=== PATIENT | female | born 1985 | race American Indian/Alaskan Native ===

== ENCOUNTER 2016-10-15 09:30 | Emergency (ER) | payer MEDICAID ==
[2016-10-15 10:36] LABS: Basophils % (Auto) 0.6 % (0.0-1.8); Eosinophils % (Auto) 0.1 % (0.0-4.3); Hematocrit 39.2 % (30.3-42.9); Hemoglobin 12.6 gm/dl (10.1-14.3); Mean Corpuscular HGB Conc 32 % (30-34); Mean Corpuscular Hemoglobin 29 pg (28-32); Mean Corpuscular Volume 90 fl (79-97); Platelet Count 348 K/mm3 (140-440); Red Blood Count 4.38 M/mm3 (3.65-5.03); Red Cell Distribution Width 15.9 % (13.2-15.2)
[2016-10-15 10:39] LABS: BUN/Creatinine Ratio 15.71; Blood Urea Nitrogen 11 mg/dL (7-17); Carbon Dioxide 22 mmol/L (22-30); Glucose 138 mg/dL (65-100); Lipase 11 units/L (13-60)
[2016-10-15 10:40] LABS: Anion Gap 20 mmol/L; Chloride 102.6 mmol/L (98-107); Potassium 3.5 mmol/L (3.6-5.0); Sodium 141 mmol/L (137-145)
[2016-10-15 13:47] LABS: Bilirubin,Urine NEG (Negative); Blood,Urine LG (Negative); Ketones,Urine TR mg/dL (Negative); Leukocyte Esterase,Urine SM (Negative); Mucus,Urine 1+ /HPF; Nitrite,Urine NEG (Negative); Urobilinogen,Urine < 2.0 mg/dL (<2.0)
[2016-10-15 13:57] LABS: RBC,Urine > 182.0 /HPF (0.0-6.0)
[2016-10-15] MEDS ORDERED: NACL 0.9% 1000 ML 1,000 ML ONE (16:10)
[2016-10-15] MEDS ORDERED: ZOFRAN ONE (16:10)
[2016-10-15] MEDS ORDERED: NACL 0.9% 1000 ML 1,000 ML IV ONE ×2 (16:22→20:13)
[2016-10-15] MEDS ORDERED: ZOFRAN IV ONE ×2 (16:22→20:13)
[2016-10-15] MEDS ORDERED: REGLAN IV ONE (20:13)
[2016-10-15] MEDS ORDERED: MORPHINE IV ONE (20:16)
--- NOTE | 2016-10-15 20:17 | Emergency Department Report ---
HPI - General Chief Complaint: Nausea/Vomiting/Diarrhea Time Seen by Provider: 10/15/16 20:01 - HPI HPI: Room 26 The patient is a 31-year-old female presenting with a chief complaint of nausea and vomiting. The patient states last night at approximately 20:00 she hamburger that was prepared by another family member. The patient states that hamburger tasted "funny" but she continued to use it. Patient states she went to sleep and awakened 2 hours later to eat hotdogs. Patient states at approximately 03:00 this morning she developed with intractable nausea vomiting small amount of diarrhea. Patient admits to subjective fever. Other people in the home 8 the burgers in the hotdogs but did not have nausea or vomiting. Patient states she currently still feels nauseated despite being administered Zofran 4 mg earlier. The patient states she is currently on her cycle Location: Gastrointestinal system Duration: Constant since 03:00 Quality: Soreness Severity: Moderate Modifying factors: [see above] Context: [see above] Mode of transportation: [not driving] ED Past Medical Hx - Past Medical History Additional medical history: Fibroids - Surgical History Past Surgical History?: No - Family History Family history: no significant - Social History Smoking Status: Current Every Day Smoker (3 packs per day) Substance Use Type: Alcohol (occasional), Marijuana - Medications Home Medications: Home Medications Medication Instructions Recorded Confirmed Last Taken Type Ibuprofen [Motrin 200 MG tab] 200 mg PO PRN 10/15/16 10/15/16 10/15/16 History Promethazine [Phenergan TAB] 25 mg PO Q6HR PRN #20 tab 10/15/16 Unknown Rx Promethazine [Phenergan] 25 mg PA Q6HR PRN #5 supp.rect 10/15/16 Unknown Rx traMADol [Ultram] 50 mg PO Q6HR PRN #14 tablet 10/15/16 Unknown Rx ED Review of Systems ROS: Stated complaint: EMESIS Other details as noted in HPI Comment: All other systems reviewed and negative Constitutional: fever (subjective) Eyes: denies: eye pain, eye discharge, vision change ENT: denies: ear pain, throat pain Respiratory: denies: cough, shortness of breath, wheezing Cardiovascular: denies: chest pain, palpitations Endocrine: no symptoms reported Gastrointestinal: nausea, vomiting, diarrhea Genitourinary: denies: urgency, dysuria, discharge Musculoskeletal: myalgia. denies: back pain, joint swelling, arthralgia Skin: denies: rash, lesions Neurological: denies: headache, weakness, paresthesias Psychiatric: denies: anxiety, depression Hematological/Lymphatic: denies: easy bleeding, easy bruising Physical Exam - Physical Exam Vital Signs: Vital Signs 10/15/16 10/15/16 10/15/16 09:49 16:10 18:19 Temperature 98.0 F 98 F Pulse Rate 67 55 L Respiratory 20 20 Rate Blood Pressure 171/100 160/106 Blood Pressure [Right] O2 Sat by Pulse 100 98 99 Oximetry 10/15/16 10/15/16 10/15/16 18:20 18:29 18:31 Temperature 98.5 F Pulse Rate 86 Respiratory 16 18 Rate Blood Pressure Blood Pressure 160/81 [Right] O2 Sat by Pulse 98 100 100 Oximetry Physical Exam: GENERAL: The patient is well-developed well-nourished female lying on stretcher not appearing to be in acute distress. [] HEENT: Normocephalic. Atraumatic. Extraocular motions are intact. NECK: Supple. Trachea midline CHEST/LUNGS: Clear to auscultation. There is no respiratory distress noted. HEART/CARDIOVASCULAR: Regular. There is no tachycardia. There is no gallop rub or murmur. ABDOMEN: Abdomen is soft, without rebound or guarding. Patient has normal bowel sounds. There is no abdominal distention. SKIN: There is no rash. There is no edema. There is no diaphoresis. NEURO: The patient is awake, alert, and oriented. The patient is cooperative. The patient has normal speech MUSCULOSKELETAL: There is no evidence of acute injury. ED Course Vital Signs 10/15/16 10/15/16 10/15/16 09:49 16:10 18:19 Temperature 98.0 F 98 F Pulse Rate 67 55 L Respiratory 20 20 Rate Blood Pressure 171/100 160/106 Blood Pressure [Right] O2 Sat by Pulse 100 98 99 Oximetry 10/15/16 10/15/16 10/15/16 18:20 18:29 18:31 Temperature 98.5 F Pulse Rate 86 Respiratory 16 18 Rate Blood Pressure Blood Pressure 160/81 [Right] O2 Sat by Pulse 98 100 100 Oximetry - Reevaluation(s) Reevaluation #1: 10/15/16 21:40 Patient tolerating po ED Medical Decision Making - Lab Data Result diagrams: 10/15/16 10:05 10/15/16 10:05 Laboratory Tests 10/15/16 10/15/16 10/15/16 09:53 10:05 10:05 WBC 7.0 RBC 4.38 Hgb 12.6 Hct 39.2 MCV 90 MCH 29 MCHC 32 RDW 15.9 H Plt Count 348 Lymph % (Auto) 12.5 L [place] % (Auto) 2.1 Eos % (Auto) 0.1 Baso % (Auto) 0.6 Lymph # 0.9 L [place] # 0.2 Eos # 0.0 Baso # 0.0 Seg Neutrophils % 84.7 H Seg Neutrophils # 6.0 Sodium 141 Potassium 3.5 L Chloride 102.6 Carbon Dioxide 22 Anion Gap 20 BUN 11 Creatinine 0.7 Estimated GFR > 60 BUN/Creatinine Ratio 15.71 Glucose 138 H POC Glucose 137 H Calcium 9.0 Lipase 11 L Urine Color Urine Turbidity Urine pH Ur Specific [place] Urine Protein Urine Glucose (UA) Urine Ketones Urine Blood Urine Nitrite Urine Bilirubin Urine Urobilinogen Ur Leukocyte Esterase Urine WBC (Auto) Urine RBC (Auto) U Epithel Cells (Auto) Urine Mucus Urine HCG, Qual 10/15/16 13:01 WBC RBC Hgb Hct MCV MCH MCHC RDW Plt Count Lymph % (Auto) [place] % (Auto) Eos % (Auto) Baso % (Auto) Lymph # [place] # Eos # Baso # Seg Neutrophils % Seg Neutrophils # Sodium Potassium Chloride Carbon Dioxide Anion Gap BUN Creatinine Estimated GFR BUN/Creatinine Ratio Glucose POC Glucose Calcium Lipase Urine Color Yellow Urine Turbidity Clear Urine pH 7.0 Ur Specific [place] 1.024 Urine Protein 30 mg/dl Urine Glucose (UA) Neg Urine Ketones Tr Urine Blood Lg Urine Nitrite Neg Urine Bilirubin Neg Urine Urobilinogen < 2.0 Ur Leukocyte Esterase Sm Urine WBC (Auto) 5.0 Urine RBC (Auto) > 182.0 U Epithel Cells (Auto) 2.0 Urine Mucus 1+ Urine HCG, Qual Negative - Differential Diagnosis gastroenteritis, Critical care attestation.: If time is entered above; I have spent that time in minutes in the direct care of this critically ill patient, excluding procedure time. ED Disposition Clinical Impression: Nausea vomiting and diarrhea Disposition: DISCHARGED TO HOME OR SELFCARE Is pt being admited?: No Does the pt Need Aspirin: No Condition: Stable Instructions: Acute Nausea and Vomiting (ED) Additional Instructions: Return to the emergency department immediately should you develop worsening symptoms, fever, inability to tolerate food or liquid or any other concerns. 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 Please follow up with him for further evaluation) Time of Disposition: 21:41
[2016-10-15 22:04] VITALS: BP 116/82
== END 2016-10-15 22:04 | disposition home or self-care (01) ==
LOC: ED 09:30
DX: R11.2 Nausea with vomiting, unspecified (principal); R19.7 Diarrhea, unspecified; F17.200 Nicotine dependence, unspecified, uncomplicated; F12.10 Cannabis abuse, uncomplicated
CPT/HCPCS: 36415; 80048; 81001; 81025; 82962; 83690; 85025; 96361; 96374; 96375; 96376; 99284; J2270; J2405; J2765; J7030

== ENCOUNTER 2017-12-17 | Emergency (ER) | payer MEDICAID ==
[2017-12-17] MEDS ORDERED: NACL 0.9% 1000 ML 1,000 ML IV ONE (00:48)
[2017-12-17 02:28] LABS: Alanine Aminotransferase 7 units/L (7-56); Albumin 4.5 g/dL (3.9-5); BUN/Creatinine Ratio 10; Blood Urea Nitrogen 8 mg/dL (7-17); Calcium 9.1 mg/dL (8.4-10.2); Hemolysis Index 5; Lipase 13 units/L (13-60)
[2017-12-17 02:39] LABS: Basophils # (Auto) 0.1 K/mm3 (0.0-0.1); Eosinophils # (Auto) 0.3 K/mm3 (0.0-0.4); Eosinophils % (Auto) 4.9 % (0.0-4.3); Hematocrit 37.8 % (30.3-42.9); Hemoglobin 12.7 gm/dl (10.1-14.3); Lymphocytes # (Auto) 1.9 K/mm3 (1.2-5.4); Lymphocytes % (Auto) 34.9 % (13.4-35.0); Mean Corpuscular HGB Conc 34 % (30-34); Mean Corpuscular Hemoglobin 30 pg (28-32); Mean Corpuscular Volume 90 fl (79-97); Monocytes # (Auto) 0.4 K/mm3 (0.0-0.8); Monocytes % (Auto) 8.1 % (0.0-7.3); Platelet Count 360 K/mm3 (140-440)
[2017-12-17 08:57] VITALS: BP 157/101
--- NOTE | 2017-12-17 11:23 | Emergency Department Report ---
ED Eye Problem HPI - General Chief complaint: Abdominal Pain Stated complaint: RT EYE PAIN WITH SWELLING Time Seen by Provider: 12/17/17 11:07 Source: patient Mode of arrival: Ambulatory Limitations: No Limitations - History of Present Illness Initial comments: ms William is a 32 year-old woman with hx of HTn not on meds and uterine fibroids who presents with foreign body sensation in R eye. Was at work and thinks she got something in her eye early friday morning. Went to sleep and woke up with her eye running and crusted. is red, feels like there is a foreign body in her lower lid. Also with her baseline lower abdominal pain from fibroids. LMP 7/. no vaginal discharge, no other bleeding. No pain with urination. No fever. No changes in her vision. No pain with eye movement. No other complaints. MD chief complaint: eye pain, eye redness, foreign body - Related Data Home Medications Medication Instructions Recorded Confirmed Last Taken Ibuprofen [Motrin 200 MG tab] 200 mg PO PRN 10/15/16 10/15/16 10/15/16 Previous Rx's Medication Instructions Recorded Last Taken Type Promethazine [Phenergan TAB] 25 mg PO Q6HR PRN #20 tab 10/15/16 Unknown Rx Promethazine [Phenergan] 25 mg CA Q6HR PRN #5 supp.rect 10/15/16 Unknown Rx traMADol [Ultram] 50 mg PO Q6HR PRN #14 tablet 10/15/16 Unknown Rx Allergies Allergy/AdvReac Type Severity Reaction Status Date / Time No Known Allergies Allergy Verified 05/23/15 11:19 ED Review of Systems ROS: Stated complaint: RT EYE PAIN WITH SWELLING Other details as noted in HPI Comment: All other systems reviewed and negative ED Past Medical Hx - Past Medical History Previous Medical History?: Yes Additional medical history: Fibroids - Surgical History Past Surgical History?: No - Social History Smoking Status: Current Every Day Smoker Substance Use Type: Alcohol - Medications Home Medications: Home Medications Medication Instructions Recorded Confirmed Last Taken Type Ibuprofen [Motrin 200 MG tab] 200 mg PO PRN 10/15/16 10/15/16 10/15/16 History Promethazine [Phenergan TAB] 25 mg PO Q6HR PRN #20 tab 10/15/16 Unknown Rx Promethazine [Phenergan] 25 mg CA Q6HR PRN #5 supp.rect 10/15/16 Unknown Rx traMADol [Ultram] 50 mg PO Q6HR PRN #14 tablet 10/15/16 Unknown Rx ED Physical Exam - General Limitations: No Limitations General appearance: alert, in no apparent distress - Head Head exam: Present: atraumatic, normocephalic - Eye Eye exam: Present: PERRL, EOMI, conjunctival injection, other (R conjuntival injection. Small black fb removed from lower lid. Fluorescein without uptake. vision 20/20 in both eyes. Soft to manual tonometry. ). Absent: scleral icterus , nystagmus, periorbital swelling, periorbital tenderness - ENT ENT exam: Present: normal exam, normal orophraynx, mucous membranes moist - Neck Neck exam: Present: normal inspection. Absent: tenderness - Cardiovascular Cardiovascular Exam: Present: regular rate, normal rhythm - GI/Abdominal GI/Abdominal exam: Present: soft, tenderness, other (mild suprapubic ttp, palpable uterine fibroids. ). Absent: distended, guarding, rebound - Back Exam Back exam: Present: normal inspection. Absent: tenderness - Neurological Exam Neurological exam: Present: alert, oriented X3 - Psychiatric Psychiatric exam: Present: normal affect, normal mood - Skin Skin exam: Present: warm, dry, intact ED Course Vital Signs 12/17/17 12/17/17 00:42 08:57 Temperature 98 F 98.1 F Pulse Rate 69 57 L Respiratory 14 18 Rate Blood Pressure 142/100 157/101 O2 Sat by Pulse 99 Oximetry ED Medical Decision Making - Lab Data Result diagrams: 12/17/17 01:04 12/17/17 01:04 Lab Results 12/17/17 12/17/17 12/17/17 Range/Units 01:04 01:04 01:04 WBC 5.4 (4.5-11.0) K/mm3 RBC 4.20 (3.65-5.03) M/mm3 Hgb 12.7 (10.1-14.3) gm/dl Hct 37.8 (30.3-42.9) % MCV 90 (79-97) fl MCH 30 (28-32) pg MCHC 34 (30-34) % RDW 14.0 (13.2-15.2) % Plt Count 360 (140-440) K/mm3 Lymph % (Auto) 34.9 (13.4-35.0) % [place] % (Auto) 8.1 H (0.0-7.3) % Eos % (Auto) 4.9 H (0.0-4.3) % Baso % (Auto) 1.0 (0.0-1.8) % Lymph # 1.9 (1.2-5.4) K/mm3 [place] # 0.4 (0.0-0.8) K/mm3 Eos # 0.3 (0.0-0.4) K/mm3 Baso # 0.1 (0.0-0.1) K/mm3 Seg Neutrophils % 51.1 (40.0-70.0) % Seg Neutrophils # 2.7 (1.8-7.7) K/mm3 Sodium 139 (137-145) mmol/L Potassium 3.5 L (3.6-5.0) mmol/L Chloride 100.1 (98-107) mmol/L Carbon Dioxide 24 (22-30) mmol/L Anion Gap 18 mmol/L BUN 8 (7-17) mg/dL Creatinine 0.8 (0.7-1.2) mg/dL Estimated GFR > 60 ml/min BUN/Creatinine Ratio 10 % Glucose 89 (65-100) mg/dL Calcium 9.1 (8.4-10.2) mg/dL Total Bilirubin 0.30 (0.1-1.2) mg/dL AST 15 (5-40) units/L ALT 7 (7-56) units/L Alkaline Phosphatase 65 (35-129) units/L Total Protein 7.3 (6.3-8.2) g/dL Albumin 4.5 (3.9-5) g/dL Albumin/Globulin Ratio 1.6 % Lipase 13 (13-60) units/L HCG, Qual Negative (Negative) - Medical Decision Making Ms William is a 32 year-old woman who presents with eye pain. [place] dust fly into her eye at work friday morning. Now with pain, discharge. Exam with conjunctival injection, no corneal abrasion. Home with abx ointment for eye. triage labs drawn for her chronic abdominal pain. unremarkable. palpable uterine fibroids. at baseline her patient. recommend continued PCP follow-up. Due to discharge, pain, will treat for conjunctivitis. Hydrocodone x 1 in ed for her fibroid pain. Safe for dc to home. Critical care attestation.: If time is entered above; I have spent that time in minutes in the direct care of this critically ill patient, excluding procedure time. ED Disposition Clinical Impression: Acute conjunctivitis Qualifiers: Acute conjunctivitis type: unspecified Laterality: right Qualified Code(s): H10.31 - Unspecified acute conjunctivitis, right eye Disposition: DC-01 TO HOME OR SELFCARE Is pt being admited?: No Does the pt Need Aspirin: No Condition: Stable Instructions: Eye Foreign Body (ED) Referrals: PRIMARY CARE, [Primary Care Provider] - 3-5 Days
[2017-12-17] MEDS ORDERED: NORCO 5/325 PO ONE (11:26)
[2017-12-17] MEDS ORDERED: FUL-GLO OP ONE (11:26)
[2017-12-17] MEDS ORDERED: ERYTHROMYCIN OPHTH OINT OU NR (11:26)
== END 2017-12-17 13:21 | disposition home or self-care (01) ==
LOC: ED
DX: H10.31 Unspecified acute conjunctivitis, right eye (principal); F17.200 Nicotine dependence, unspecified, uncomplicated; D25.9 Leiomyoma of uterus, unspecified
CPT/HCPCS: 36415; 80053; 83690; 84703; 85025; 99283

== ENCOUNTER 2018-06-25 02:27 | Emergency (ER) | payer OTHER, MEDICAID ==
[2018-06-25] MEDS ORDERED: NACL 0.9% 1000 ML 1,000 ML IV ONE (02:47)
[2018-06-25] MEDS ORDERED: ZOFRAN ODT PO ONE (02:48)
[2018-06-25 03:15] LABS: Basophils # (Auto) 0.1 K/mm3 (0.0-0.1); Basophils % (Auto) 1.2 % (0.0-1.8); Eosinophils # (Auto) 0.1 K/mm3 (0.0-0.4); Eosinophils % (Auto) 0.9 % (0.0-4.3); Hematocrit 34.6 % (30.3-42.9); Hemoglobin 11.7 gm/dl (10.1-14.3); Lymphocytes # (Auto) 1.4 K/mm3 (1.2-5.4); Lymphocytes % (Auto) 16.8 % (13.4-35.0); Mean Corpuscular HGB Conc 34 % (30-34); Mean Corpuscular Volume 90 fl (79-97); Monocytes # (Auto) 0.5 K/mm3 (0.0-0.8); Monocytes % (Auto) 5.8 % (0.0-7.3); Platelet Count 296 K/mm3 (140-440); Red Blood Count 3.83 M/mm3 (3.65-5.03); Red Cell Distribution Width 13.4 % (13.2-15.2)
[2018-06-25 03:39] LABS: Alanine Aminotransferase 11 units/L (7-56); BUN/Creatinine Ratio 12; Blood Urea Nitrogen 6 mg/dL (7-17); Hemolysis Index 7
[2018-06-25] MEDS ORDERED: ZOFRAN ONE (04:00)
[2018-06-25 04:03] LABS: Bilirubin,Urine NEG (Negative); Blood,Urine NEG (Negative); Color,Urine Yellow (Yellow); Mucus,Urine FEW /HPF; Protein,Urine <15 mg/dL mg/dL (Negative); RBC,Urine < 1.0 /HPF (0.0-6.0); Urobilinogen,Urine < 2.0 mg/dL (<2.0)
[2018-06-25] MEDS ORDERED: TYLENOL ONE (04:06)
[2018-06-25] MEDS ORDERED: ZOFRAN IV ONE ×2 (04:23→06:53)
[2018-06-25] MEDS ORDERED: TYLENOL PO ONE (04:44)
[2018-06-25] MEDS ORDERED: REGLAN IV ONE (06:53)
--- NOTE | 2018-06-25 07:04 | Emergency Department Report ---
ED General Adult HPI - General Chief complaint: Abdominal Pain Stated complaint: ABDOMINAL PAIN Time Seen by Provider: 06/25/18 06:04 Source: patient Mode of arrival: Ambulatory Limitations: No Limitations - History of Present Illness Initial comments: The patient() presents to the [facility] department with a chief complaint of right sided abdominal pain with nausea vomiting started Friday. Patient states prior to have abdominal pain she had no nausea or vomiting. Patient states she is approximately 13 weeks . Patient denies any chest pain, sinus pressure, vaginal discharge or vaginal bleeding. -: Sudden Location: abdomen Radiation: non-radiation Severity scale (0 -10): 10 Quality: stabbing Consistency: constant Improves with: none Worsens with: none Associated Symptoms: denies other symptoms Treatments Prior to Arrival: none - Related Data Home Medications Medication Instructions Recorded Confirmed Last Taken Ibuprofen [Motrin 200 MG tab] 200 mg PO PRN 10/15/16 10/15/16 10/15/16 Previous Rx's Medication Instructions Recorded Last Taken Type Promethazine [Phenergan TAB] 25 mg PO Q6HR PRN #20 tab 10/15/16 Unknown Rx Promethazine [Phenergan] 25 mg ND Q6HR PRN #5 supp.rect 10/15/16 Unknown Rx traMADol [Ultram] 50 mg PO Q6HR PRN #14 tablet 10/15/16 Unknown Rx ALBUTEROL Inhaler (OR & NICU) 2 puff IH QID PRN #1 inhalation 04/11/18 Unknown Rx [ProAir HFA Inhaler] predniSONE [Deltasone] 10 mg PO .TAPER #21 tab 04/11/18 Unknown Rx traMADol [Ultram] 50 mg PO Q6HR PRN #12 tablet 04/11/18 Unknown Rx Acetaminophen/Codeine [Tylenol 1 tab PO Q6H PRN #20 tab 06/25/18 Unknown Rx /Codeine # 3 tab] Ondansetron [Zofran Odt] 4 mg PO Q6HR PRN #20 tab.rapdis 06/25/18 Unknown Rx Allergies Allergy/AdvReac Type Severity Reaction Status Date / Time No Known Allergies Allergy Verified 05/23/15 11:19 ED Review of Systems ROS: Stated complaint: ABDOMINAL PAIN Other details as noted in HPI Comment: All other systems reviewed and negative Constitutional: denies: chills, fever Eyes: denies: eye pain, eye discharge, vision change ENT: denies: ear pain, throat pain Respiratory: denies: cough, shortness of breath, wheezing Cardiovascular: denies: chest pain, palpitations Endocrine: no symptoms reported Gastrointestinal: abdominal pain. denies: nausea, diarrhea Genitourinary: denies: urgency, dysuria, discharge Musculoskeletal: denies: back pain, joint swelling, arthralgia Skin: denies: rash, lesions Neurological: denies: headache, weakness, paresthesias Psychiatric: denies: anxiety, depression Hematological/Lymphatic: denies: easy bleeding, easy bruising ED Past Medical Hx - Past Medical History Previous Medical History?: Yes Hx Hypertension: Yes Additional medical history: Fibroids - Surgical History Past Surgical History?: No - Social History Smoking Status: Never Smoker Substance Use Type: None - Medications Home Medications: Home Medications Medication Instructions Recorded Confirmed Last Taken Type Ibuprofen [Motrin 200 MG tab] 200 mg PO PRN 10/15/16 10/15/16 10/15/16 History Promethazine [Phenergan TAB] 25 mg PO Q6HR PRN #20 tab 10/15/16 Unknown Rx Promethazine [Phenergan] 25 mg ND Q6HR PRN #5 supp.rect 10/15/16 Unknown Rx traMADol [Ultram] 50 mg PO Q6HR PRN #14 tablet 10/15/16 Unknown Rx ALBUTEROL Inhaler (OR & NICU) 2 puff IH QID PRN #1 inhalation 04/11/18 Unknown Rx [ProAir HFA Inhaler] predniSONE [Deltasone] 10 mg PO .TAPER #21 tab 04/11/18 Unknown Rx traMADol [Ultram] 50 mg PO Q6HR PRN #12 tablet 04/11/18 Unknown Rx Acetaminophen/Codeine [Tylenol 1 tab PO Q6H PRN #20 tab 06/25/18 Unknown Rx /Codeine # 3 tab] Ondansetron [Zofran Odt] 4 mg PO Q6HR PRN #20 tab.rapdis 06/25/18 Unknown Rx ED Physical Exam - General Limitations: No Limitations General appearance: alert, in no apparent distress - Head Head exam: Present: atraumatic, normocephalic - Eye Eye exam: Present: normal appearance, PERRL, EOMI - ENT ENT exam: Present: mucous membranes moist - Neck Neck exam: Present: normal inspection - Respiratory Respiratory exam: Present: normal lung sounds bilaterally. Absent: respiratory distress - Cardiovascular Cardiovascular Exam: Present: regular rate, normal rhythm. Absent: systolic murmur, diastolic murmur, rubs, gallop - GI/Abdominal GI/Abdominal exam: Present: soft, tenderness (RLQ TTP), normal bowel sounds. Absent: distended - Extremities Exam Extremities exam: Present: normal inspection - Back Exam Back exam: Present: normal inspection - Neurological Exam Neurological exam: Present: alert, oriented X3, CN II-XII intact. Absent: motor sensory deficit - Psychiatric Psychiatric exam: Present: normal affect, normal mood - Skin Skin exam: Present: warm, dry, intact, normal color. Absent: rash ED Course Vital Signs 06/25/18 06/25/18 06/25/18 02:40 03:36 03:46 Temperature 99.1 F Pulse Rate 84 Respiratory 18 Rate Blood Pressure 133/86 132/115 Blood Pressure [Left] O2 Sat by Pulse 100 100 100 Oximetry 06/25/18 06/25/18 06/25/18 04:00 04:16 04:30 Temperature Pulse Rate Respiratory Rate Blood Pressure 136/79 136/79 156/82 Blood Pressure [Left] O2 Sat by Pulse 100 100 100 Oximetry 06/25/18 06/25/18 06/25/18 04:32 04:43 04:46 Temperature Pulse Rate 88 Respiratory 18 18 Rate Blood Pressure 172/80 Blood Pressure 136/79 [Left] O2 Sat by Pulse 100 100 100 Oximetry 06/25/18 06/25/18 06/25/18 05:04 05:16 05:30 Temperature Pulse Rate Respiratory Rate Blood Pressure 147/98 147/98 163/96 Blood Pressure [Left] O2 Sat by Pulse 90 100 100 Oximetry 06/25/18 06/25/18 06/25/18 05:46 06:00 06:20 Temperature Pulse Rate 84 Respiratory 18 Rate Blood Pressure 192/77 142/82 133/79 Blood Pressure 142/88 [Left] O2 Sat by Pulse 98 100 86 Oximetry 06/25/18 06/25/18 06/25/18 06:32 06:47 07:34 Temperature Pulse Rate Respiratory Rate Blood Pressure 133/79 50/30 133/79 Blood Pressure [Left] O2 Sat by Pulse 86 96 Oximetry 06/25/18 06/25/18 06/25/18 10:26 10:30 10:46 Temperature Pulse Rate Respiratory Rate Blood Pressure 134/57 134/57 134/57 Blood Pressure [Left] O2 Sat by Pulse 98 100 100 Oximetry 06/25/18 06/25/18 06/25/18 11:00 11:16 11:30 Temperature Pulse Rate Respiratory Rate Blood Pressure 134/57 134/57 134/57 Blood Pressure [Left] O2 Sat by Pulse 100 99 100 Oximetry 06/25/18 13:47 Temperature Pulse Rate Respiratory Rate Blood Pressure 117/69 Blood Pressure [Left] O2 Sat by Pulse Oximetry ED Medical Decision Making - Lab Data Result diagrams: 06/25/18 03:06 06/25/18 03:06 Lab Results 06/25/18 06/25/18 06/25/18 Range/Units 03:06 03:06 03:53 WBC 8.4 (4.5-11.0) K/mm3 RBC 3.83 (3.65-5.03) M/mm3 Hgb 11.7 (10.1-14.3) gm/dl Hct 34.6 (30.3-42.9) % MCV 90 (79-97) fl MCH 31 (28-32) pg MCHC 34 (30-34) % RDW 13.4 (13.2-15.2) % Plt Count 296 (140-440) K/mm3 Lymph % (Auto) 16.8 (13.4-35.0) % [place] % (Auto) 5.8 (0.0-7.3) % Eos % (Auto) 0.9 (0.0-4.3) % Baso % (Auto) 1.2 (0.0-1.8) % Lymph # 1.4 (1.2-5.4) K/mm3 [place] # 0.5 (0.0-0.8) K/mm3 Eos # 0.1 (0.0-0.4) K/mm3 Baso # 0.1 (0.0-0.1) K/mm3 Seg Neutrophils % 75.3 H (40.0-70.0) % Seg Neutrophils # 6.3 (1.8-7.7) K/mm3 Sodium 137 (137-145) mmol/L Potassium 4.0 (3.6-5.0) mmol/L Chloride 101.2 (98-107) mmol/L Carbon Dioxide 22 (22-30) mmol/L Anion Gap 18 mmol/L BUN 6 L (7-17) mg/dL Creatinine 0.5 L (0.7-1.2) mg/dL Estimated GFR > 60 ml/min BUN/Creatinine Ratio 12 % Glucose 75 (65-100) mg/dL Calcium 9.0 (8.4-10.2) mg/dL Total Bilirubin 0.20 (0.1-1.2) mg/dL AST 13 (5-40) units/L ALT 11 (7-56) units/L Alkaline Phosphatase 47 (35-129) units/L Total Protein 6.3 (6.3-8.2) g/dL Albumin 4.0 (3.9-5) g/dL Albumin/Globulin Ratio 1.7 % Lipase 8 L (13-60) units/L HCG, Quant (0-4) mIU/mL Urine Color Yellow (Yellow) Urine Turbidity Clear (Clear) Urine pH 7.0 (5.0-7.0) Ur Specific [place] 1.013 (1.003-1.030) Urine Protein <15 mg/dl (Negative) mg/dL Urine Glucose (UA) Neg (Negative) mg/dL Urine Ketones Negative (Negative) mg/dL Urine Blood Neg (Negative) Urine Nitrite Neg (Negative) Urine Bilirubin Neg (Negative) Urine Urobilinogen < 2.0 (<2.0) mg/dL Ur Leukocyte Esterase Neg (Negative) Urine WBC (Auto) 1.0 (0.0-6.0) /HPF Urine RBC (Auto) < 1.0 (0.0-6.0) /HPF U Epithel Cells (Auto) 1.0 (0-13.0) /HPF Urine Mucus Few /HPF 06/25/18 Range/Units 03:58 WBC (4.5-11.0) K/mm3 RBC (3.65-5.03) M/mm3 Hgb (10.1-14.3) gm/dl Hct (30.3-42.9) % MCV (79-97) fl MCH (28-32) pg MCHC (30-34) % RDW (13.2-15.2) % Plt Count (140-440) K/mm3 Lymph % (Auto) (13.4-35.0) % [place] % (Auto) (0.0-7.3) % Eos % (Auto) (0.0-4.3) % Baso % (Auto) (0.0-1.8) % Lymph # (1.2-5.4) K/mm3 [place] # (0.0-0.8) K/mm3 Eos # (0.0-0.4) K/mm3 Baso # (0.0-0.1) K/mm3 Seg Neutrophils % (40.0-70.0) % Seg Neutrophils # (1.8-7.7) K/mm3 Sodium (137-145) mmol/L Potassium (3.6-5.0) mmol/L Chloride (98-107) mmol/L Carbon Dioxide (22-30) mmol/L Anion Gap mmol/L BUN (7-17) mg/dL Creatinine (0.7-1.2) mg/dL Estimated GFR ml/min BUN/Creatinine Ratio % Glucose (65-100) mg/dL Calcium (8.4-10.2) mg/dL Total Bilirubin (0.1-1.2) mg/dL AST (5-40) units/L ALT (7-56) units/L Alkaline Phosphatase (35-129) units/L Total Protein (6.3-8.2) g/dL Albumin (3.9-5) g/dL Albumin/Globulin Ratio % Lipase (13-60) units/L HCG, Quant 40750 H (0-4) mIU/mL Urine Color (Yellow) Urine Turbidity (Clear) Urine pH (5.0-7.0) Ur Specific [place] (1.003-1.030) Urine Protein (Negative) mg/dL Urine Glucose (UA) (Negative) mg/dL Urine Ketones (Negative) mg/dL Urine Blood (Negative) Urine Nitrite (Negative) Urine Bilirubin (Negative) Urine Urobilinogen (<2.0) mg/dL Ur Leukocyte Esterase (Negative) Urine WBC (Auto) (0.0-6.0) /HPF Urine RBC (Auto) (0.0-6.0) /HPF U Epithel Cells (Auto) (0-13.0) /HPF Urine Mucus /HPF - Radiology Data Radiology results: report reviewed [address] [address] Ultrasound Report Signed Patient: ANAYA GAFFNEY MR#: [id number] : 1985 Acct:[id number] Age/Sex: 33 / F ADM Date: 06/25/18 Loc: ED Attending Dr: Ordering Physician: CHANDLER JIMÉNEZ MD Date of Service: 06/25/18 Procedure(s): US OB <= 14 weeks fetus Accession Number(s): [id number] cc: CHANDLER JIMÉNEZ MD ULTRASOUND OB LESS THAN 14 WEEKS FETUS History: Abdominal pain. Technique: Transabdominal ultrasound. Findings: The uterus measures 27 x 12 x 18 cm. Multiple large uterine fibroids are identified measuring up to 8.5 cm in diameter. An intrauterine is identified with heart rate measuring 157 beats per minute. [place]-rump length measures 72.8 mm which correlates with a 13 week 3 day . The placenta appears to be forming anteriorly. No subchorionic hemorrhage is detected. The ovaries are normal size, contour and echotexture. No adnexal cyst or mass. No pelvic fluid collection. IMPRESSION: Severe uterine fibroid disease. Viable single intrauterine as described. No acute abnormality is appreciated. Transcribed By: TTR Dictated By: KWADWO CINTRON JR, MD Electronically Authenticated By: KWADWO CINTRON JR, MD Signed Date/Time: 06/25/18844 DD/ 1 TD/TT: 06/25/[address] [address] Ultrasound Report Signed Patient: ANAYA GAFFNEY MR#: [id number] : 1985 Acct:[id number] Age/Sex: 33 / F ADM Date: 06/25/18 Loc: ED Attending Dr: Ordering Physician: CHANDLER JIMÉNEZ MD Date of Service: 06/25/18 Procedure(s): US abdomen limited Accession Number(s): [id number] cc: CHANDLER JIMÉNEZ MD ULTRASOUND ABDOMEN LIMITED History: Right lower quadrant abdominal pain. Findings: Targeted grayscale ultrasound was performed in the right lower quadrant. The appendix is not identified on ultrasound. The visualized liver and right kidney are unremarkable. A large fibroid is identified in the right lower quadrant measuring up to 8.5 cm in diameter. No free fluid. Impression: The appendix is not identified. There is a large uterine fibroid in the right lower quadrant as described. Transcribed By: TTR Dictated By: KWADWO CINTRON JR, MD Electronically Authenticated By: KWADWO CINTRON JR, MD Signed Date/Time: 06/25/1842 DD/ 0841 TD/TT: 06/25/1842 [facility] [address] [id number] Magnetic Resonance Report Signed Patient: ANAYA GAFFNEY MR#: [id number] : 1985 Acct:[id number] Age/Sex: 33 / F ADM Date: 06/25/18 Loc: ED Attending Dr: Ordering Physician: CHANDLER JIMÉNEZ MD Date of Service: 06/25/18 Procedure(s): MR abdomen wo con Accession Number(s): [id number] cc: CHANDLER JIMÉNEZ MD MRI ABDOMEN WITHOUT CONTRAST History: Right lower quadrant abdominal pain, evaluate for appendicitis. Technique: Multisequence, multiplanar MRI without contrast. Findings: Ultrasound of the right lower quadrant performed earlier today was reviewed. I believe I see the appendix on MRI. The appendix is best demonstrated on coronal T2 images 12-15. There is no evidence for abnormal dilatation or wall thickening. No inflammatory changes are identified in the right lower quadrant to suggest appendicitis. The uterus is markedly enlarged and contains numerous small and large fibroids. Intrauterine is noted. The ovaries are grossly normal. The right ovarian vein is markedly dilated measuring up to 1.5 cm in diameter. The liver, biliary system, pancreas, spleen, kidneys, adrenal glands and bowel loops are unremarkable. IMPRESSION: No evidence for acute appendicitis on MRI. Markedly enlarged uterus with numerous fibroids. Prominent right ovarian vein varicosity. Pelvic congestion syndrome? Transcribed By: TTR Dictated By: KWADWO CINTRON JR, MD Electronically Authenticated By: KWADWO CINTRON JR, MD Signed Date/Time: 06/25/18 1333 DD/ 1329 TD/TT: 06/25/18 1333 Critical care attestation.: If time is entered above; I have spent that time in minutes in the direct care of this critically ill patient, excluding procedure time. ED Disposition Clinical Impression: Abdominal pain, Uterine fibroid, Abdominal pain during Disposition: TO HOME OR SELFCARE Is pt being admited?: No Does the pt Need Aspirin: No Condition: Stable Instructions: Abdominal Pain (ED), Uterine Fibroids (ED) Additional Instructions: return if worse Prescriptions: Acetaminophen/Codeine [Tylenol /Codeine # 3 tab] 1 tab PO Q6H PRN #20 tab PRN Reason: pain Ondansetron [Zofran Odt] 4 mg PO Q6HR PRN #20 tab.rapdis PRN Reason: Nausea Referrals: YVES LIMA MD [Primary Care Provider] - 3-5 Days Time of Disposition: 14:53
[2018-06-25] MEDS ORDERED: STADOL IV NR ×2 (07:30→14:00)
--- NOTE | 2018-06-25 08:45 | Ultrasound Report ---
ULTRASOUND ABDOMEN LIMITED History: Right lower quadrant abdominal pain. Findings: Targeted grayscale ultrasound was performed in the right lower quadrant. The appendix is not identified on ultrasound. The visualized liver and right kidney are unremarkable. A large fibroid is identified in the right lower quadrant measuring up to 8.5 cm in diameter. No free fluid. Impression: The appendix is not identified. There is a large uterine fibroid in the right lower quadrant as described.
--- NOTE | 2018-06-25 08:48 | Ultrasound Report ---
ULTRASOUND OB LESS THAN 14 WEEKS FETUS History: Abdominal pain. Technique: Transabdominal ultrasound. Findings: The uterus measures 27 x 12 x 18 cm. Multiple large uterine fibroids are identified measuring up to 8.5 cm in diameter. An intrauterine is identified with heart rate measuring 157 beats per minute. [place]-rump length measures 72.8 mm which correlates with a 13 week 3 day . The placenta appears to be forming anteriorly. No subchorionic hemorrhage is detected. The ovaries are normal size, contour and echotexture. No adnexal cyst or mass. No pelvic fluid collection. IMPRESSION: Severe uterine fibroid disease. Viable single intrauterine as described. No acute abnormality is appreciated.
--- NOTE | 2018-06-25 13:36 | Magnetic Resonance Report ---
MRI ABDOMEN WITHOUT CONTRAST History: Right lower quadrant abdominal pain, evaluate for appendicitis. Technique: Multisequence, multiplanar MRI without contrast. Findings: Ultrasound of the right lower quadrant performed earlier today was reviewed. I believe I see the appendix on MRI. The appendix is best demonstrated on coronal T2 images 12-15. There is no evidence for abnormal dilatation or wall thickening. No inflammatory changes are identified in the right lower quadrant to suggest appendicitis. The uterus is markedly enlarged and contains numerous small and large fibroids. Intrauterine is noted. The ovaries are grossly normal. The right ovarian vein is markedly dilated measuring up to 1.5 cm in diameter. The liver, biliary system, pancreas, spleen, kidneys, adrenal glands and bowel loops are unremarkable. IMPRESSION: No evidence for acute appendicitis on MRI. Markedly enlarged uterus with numerous fibroids. Prominent right ovarian vein varicosity. Pelvic congestion syndrome?
[2018-06-25 13:59] VITALS: BP 117/69
[2018-06-25] MEDS ORDERED: STADOL IV ONE (14:00)
== END 2018-06-25 15:28 | disposition home or self-care (01) ==
LOC: ED 02:27
DX: O34.11 Maternal care for benign tumor of corpus uteri, first trimester (principal); O10.911 Unspecified pre-existing hypertension complicating pregnancy, first trimester; O21.8 Other vomiting complicating pregnancy; Z3A.13 13 weeks gestation of pregnancy
CPT/HCPCS: 36415; 74181; 76705; 76801; 80053; 81001; 83690; 84702; 85025; 96361; 96374; 96375; 96376; 99284; J0595; J2405; J2765; J7030; Q0162

== ENCOUNTER 2018-08-17 22:06 | Emergency (ER) | payer MEDICAID, OTHER ==
[2018-08-17 20:12] LABS: Bilirubin,Urine NEG (Negative); Blood,Urine NEG (Negative); Color,Urine Straw (Yellow); Protein,Urine <15 mg/dL mg/dL (Negative); Urobilinogen,Urine < 2.0 mg/dL (<2.0); WBC,Urine < 1.0 /HPF (0.0-6.0)
[2018-08-17 20:18] LABS: Amphetamine Screen,Urine PRESUMPTIVE NEGATIVE; Benzodiazepines Screen,Urine PRESUMPTIVE NEGATIVE; Cocaine Screen,Urine PRESUMPTIVE NEGATIVE; Methadone Screen,Urine PRESUMPTIVE NEGATIVE; Opiate Screen,Urine PRESUMPTIVE NEGATIVE
[2018-08-17 21:04] LABS: Cannabinoid Screen,Urine PRESUMPTIVE POSITIVE
[~2018-08-17 22:06] MED LIST: LACTATED RINGERS 1,000 ML IV SCH
[2018-08-17 22:43] VITALS: BP 124/77
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
== END 2018-08-18 03:57 | disposition home or self-care (01) ==
LOC: TRG 22:06 → ED 22:06 → EDSTATUS 22:13 → ED 08-18 03:57
DX: O9A.212 Injury, poisoning and certain other consequences of external causes complicating pregnancy, second trimester (principal); S16.1XXA Strain of muscle, fascia and tendon at neck level, initial encounter; S80.211A Abrasion, right knee, initial encounter; M79.601 Pain in right arm; O16.2 Unspecified maternal hypertension, second trimester; O99.332 Smoking (tobacco) complicating pregnancy, second trimester; F17.200 Nicotine dependence, unspecified, uncomplicated; F12.10 Cannabis abuse, uncomplicated; Z3A.21 21 weeks gestation of pregnancy; V49.59XA Passenger injured in collision with other motor vehicles in traffic accident, initial encounter; Y93.89 Activity, other specified; Y92.410 Unspecified street and highway as the place of occurrence of the external cause; Y99.8 Other external cause status
CPT/HCPCS: 80307; 81001; 96360

== ENCOUNTER 2018-08-23 12:55 | Outpatient (CLI) | payer OTHER ==
[2018-08-23] MEDS ORDERED: LACTATED RINGERS 1,000 ML IV ONE (13:06)
[2018-08-23 14:48] LABS: Color,Urine Yellow (Yellow)
[2018-08-23 14:49] LABS: Bilirubin,Urine NEG (Negative); Blood,Urine NEG (Negative); Mucus,Urine FEW /HPF; Protein,Urine <15 mg/dL mg/dL (Negative); Urobilinogen,Urine < 2.0 mg/dL (<2.0)
--- NOTE | 2018-08-23 16:56 | Ultrasound Report ---
PROCEDURE: US RENAL BILAT TECHNIQUE: Real-time sonography in multiple planes of the kidneys, ureters and urinary bladder was p erformed with image documentation. HISTORY: abdominal pain COMPARISONS: None . FINDINGS: RIGHT kidney: Normal echotexture. No focal renal mass, calculus, or hydronephrosis. Length: 11.2 cm . LEFT kidney: Normal echotexture. No focal renal mass, calculus, or hydronephrosis. Length: 11.8 cm. Bladder: Normal. No distention or wall thickening. IMPRESSION: Negative Examination . This document is electronically signed by Aries Mitchell MD., August 23 2018 04:54:20 PM ET
[2018-08-23] MEDS ORDERED: PROCARDIA*For Tocolysis only PO ONE (17:32)
[2018-08-23] MEDS ORDERED: LACTATED RINGERS 1,000 ML ONE (17:52)
[2018-08-23] MEDS ORDERED: ANCEF/NS 1 GM/50 ML 1 GM/50 ML BAG IV ONE (18:00)
[2018-08-23 18:46] VITALS: BP 107/52
[2018-08-23] MEDS ORDERED: VISTARIL PO ONE (19:52)
== END 2018-08-23 20:30 | disposition home or self-care (01) ==
LOC: TRG 12:55
PROVIDERS: ATTEND Obstetrics & Gynecology
DX: O26.892 Other specified pregnancy related conditions, second trimester (principal); R10.9 Unspecified abdominal pain; O09.522 Supervision of elderly multigravida, second trimester; O47.02 False labor before 37 completed weeks of gestation, second trimester; O99.322 Drug use complicating pregnancy, second trimester; F12.90 Cannabis use, unspecified, uncomplicated; O99.332 Smoking (tobacco) complicating pregnancy, second trimester; F17.200 Nicotine dependence, unspecified, uncomplicated; Z3A.21 21 weeks gestation of pregnancy
CPT/HCPCS: 76770; 81001; 96361; 96365; J0690; J7120; Q0177

== ENCOUNTER 2018-08-24 09:16 | Outpatient (CLI) | payer OTHER ==
[2018-08-24] MEDS ORDERED: LACTATED RINGERS 1,000 ML ONE (10:06)
[2018-08-24] MEDS ORDERED: BRETHINE SUB-Q ONE (10:44)
[2018-08-24] MEDS ORDERED: LACTATED RINGERS 1,000 ML IV ONE (10:45)
[2018-08-24 11:51] LABS: Amphetamine Screen,Urine PRESUMPTIVE NEGATIVE; Benzodiazepines Screen,Urine PRESUMPTIVE NEGATIVE; Cocaine Screen,Urine PRESUMPTIVE NEGATIVE; Methadone Screen,Urine PRESUMPTIVE NEGATIVE; Opiate Screen,Urine PRESUMPTIVE NEGATIVE
[2018-08-24 12:10] LABS: Bilirubin,Urine NEG (Negative); Blood,Urine NEG (Negative); Color,Urine Amber (Yellow); Mucus,Urine 2+ /HPF; Urobilinogen,Urine < 2.0 mg/dL (<2.0)
[2018-08-24 12:14] LABS: Cannabinoid Screen,Urine PRESUMPTIVE POSITIVE
[2018-08-24 12:38] LABS: Alanine Aminotransferase 26 units/L (7-56); Albumin 3.5 g/dL (3.9-5); BUN/Creatinine Ratio 13; Blood Urea Nitrogen 5 mg/dL (7-17); Hemolysis Index 17
[2018-08-24] MEDS ORDERED: PHENERGAN PR PRN (12:50)
[2018-08-24] MEDS ORDERED: SUBLIMAZE IV ONE (12:52)
[2018-08-24] MEDS ORDERED: PEPCID IV SCH (13:00)
[2018-08-24 13:42] LABS: Basophils % (Auto) 0.1 % (0.0-1.8); Hematocrit 32.5 % (30.3-42.9); Hemoglobin 10.7 gm/dl (10.1-14.3); Lymphocytes # (Auto) 1.3 K/mm3 (1.2-5.4); Lymphocytes % (Auto) 10.3 % (13.4-35.0); Mean Corpuscular HGB Conc 33 % (30-34); Mean Corpuscular Volume 90 fl (79-97); Monocytes # (Auto) 0.3 K/mm3 (0.0-0.8); Monocytes % (Auto) 2.1 % (0.0-7.3); Platelet Count 309 K/mm3 (140-440); Red Blood Count 3.61 M/mm3 (3.65-5.03); Red Cell Distribution Width 14.4 % (13.2-15.2)
[2018-08-24] MEDS ORDERED: ALDOMET PO SCH (14:00)
--- NOTE | 2018-08-24 14:07 | Event Note ---
Date: 08/24/18 33 y.o. IUP at approx 22w presents to triage with c/o abdominal pain, n/v x 2 days. She was seen in triage last night with same complaints. US ordered to confirm GA. Phenergan W[place], IV fentanyl, pepcid IV, and IV fluids given. SVE closed. Patient reports feeling much better, states still slightly nauseated, but phenergan was just recently given. Reports abdominal pain is better. Abdomen palpates soft, no contractions noted at present. Patient denies LOF or vaginal bleeding. Patient reports hx CHTN and was taking 250mg aldomet BID, but has mis sed taking it the last 2+ days due to vomiting and nausea. One time dose ordered to be given now. Labs reviewed. Dr. Ruelas notified of patient assessment and c/o. Will continue to monitor n/v and d/c home once improved.
[2018-08-24 14:34] LABS: Hepatitis C Virus Antibody Non-Reactive (NonReactive)
--- NOTE | 2018-08-24 17:02 | Ultrasound Report ---
PROCEDURE: US OB >= 14 WEEK LMP: 03/23/2018 S FETUS TECHNIQUE: OB ultrasound HISTORY: well being. date, weights, all information on baby COMPARISONS: None available FINDINGS: LMP 03/23/2018 Clinical Age: 22 W 0D US Age (average) = 21 W 4D EFW (BPD,HC,AC,FL) = 511 g +/- 76g (1lbs 2oz.. 3oz.) LMP EDC 12/28/2018 US EDC 12/31/2018 CI 68.4 (Range 74 To 83) HC/AC 1.11 (Range 1.06 To 1.25) FL/BPD 97.5 FL/HC 23 (Range 16.6 To 22.0) FL/AC 25.5 (Range 20 To 24) BPD 4.4 cm corresponding to age 19 weeks 2 days HC 18.7 cm corresponding to age 21 weeks 0 days AC 16.9 cm corresponding to age 21 weeks 6 days FL 4.3 cm corresponding to age 24 weeks 0 days Presentation: Breech Activity: Monitored Placental location: Anterior Placental grade: 0 Cardiac motion: 161 BPM using M-mode doppler Heart (4 CH) :Present Umbilical cord: 3 vessel Bladder: Present Kidneys: Present stomach: Present Diaphragm: Not visualized Spine: Portions that are visualized appear normal brain and skull: Portions that are visualized appear normal Cord Insertion: Not visualized Amniotic Fluid Volume: Adequate Cervical Length: 3.5 cm Incidental: 2 fibroids are noted in the uterus. The first is heterogeneous and isoechoic, located in the lower uterine segment posteriorly measuring 6.6 x 6.9 x 6.5 cm. The second is heterogeneous and i soechoic, located in the uterine fundus cranially to the right measuring 9.6 x 9.1 x 9.7 cm. IMPRESSION: 1. Single intrauterine viable with an approximate age of 21 weeks 4 days. 2. Some portions of the fetus are not well visualized 3. There are 2 large fibroids present in the uterus This document is electronically signed by Lissa Ureña MD., August 24 2018 05:00:00 PM ET
[2018-08-24 18:37] VITALS: BP 123/70
== END 2018-08-24 19:07 | disposition home or self-care (01) ==
LOC: TRG 09:16 → LD 11:07 → TRG 19:07
PROVIDERS: ATTEND Obstetrics & Gynecology
DX: O34.12 Maternal care for benign tumor of corpus uteri, second trimester (principal); D25.9 Leiomyoma of uterus, unspecified; O21.2 Late vomiting of pregnancy; Z3A.22 22 weeks gestation of pregnancy
CPT/HCPCS: 36415; 76805; 80053; 80307; 81001; 85025; 86592; 86706; 86762; 86803; 87806; 96365; 96366; 96372; 96375; J3010; J3105; J7120

== ENCOUNTER 2018-08-27 22:11 | Outpatient (CLI) | payer OTHER ==
[2018-08-27] MEDS ORDERED: LACTATED RINGERS 1,000 ML ONE (22:49)
[2018-08-27] MEDS ORDERED: ZOFRAN ONE (23:22)
[2018-08-27] MEDS ORDERED: LACTATED RINGERS 1,000 ML IV ONE (23:32)
[2018-08-27] MEDS ORDERED: ZOFRAN IV ONE (23:33)
[2018-08-28] MEDS ORDERED: STADOL IV PRN (00:07)
[2018-08-28 00:31] LABS: Amorphous Crystals,Urine 1+; Bilirubin,Urine NEG (Negative); Blood,Urine NEG (Negative); Color,Urine Yellow (Yellow); Hyaline Casts,Urine 3 /LPF; Mucus,Urine 3+ /HPF
[2018-08-28 00:37] LABS: Amphetamine Screen,Urine PRESUMPTIVE NEGATIVE; Benzodiazepines Screen,Urine PRESUMPTIVE NEGATIVE; Cocaine Screen,Urine PRESUMPTIVE NEGATIVE; Methadone Screen,Urine PRESUMPTIVE NEGATIVE; Opiate Screen,Urine PRESUMPTIVE NEGATIVE
[2018-08-28 01:00] LABS: Cannabinoid Screen,Urine PRESUMPTIVE POSITIVE
[2018-08-28 01:32] LABS: Hematocrit 28.4 % (30.3-42.9); Hemoglobin 9.9 gm/dl (10.1-14.3); Mean Corpuscular HGB Conc 35 % (30-34); Mean Corpuscular Volume 89 fl (79-97); Platelet Count 306 K/mm3 (140-440); Red Blood Count 3.18 M/mm3 (3.65-5.03); Red Cell Distribution Width 13.7 % (13.2-15.2)
[2018-08-28] MEDS ORDERED: BRETHINE ONE ×2 (01:52→10:00)
[2018-08-28] MEDS: BRETHINE SUB-Q SCH ×2 (01:52→02:17)
[2018-08-28 02:13] LABS: Alanine Aminotransferase 18 units/L (7-56); Albumin 3.1 g/dL (3.9-5); BUN/Creatinine Ratio 10; Blood Urea Nitrogen 3 mg/dL (7-17); Calcium 8.2 mg/dL (8.4-10.2); Hemolysis Index 0
[2018-08-28 03:12] VITALS: BP 135/76
== END 2018-08-28 03:22 | disposition home or self-care (01) ==
LOC: TRG 22:11
PROVIDERS: ATTEND Obstetrics & Gynecology
DX: O26.892 Other specified pregnancy related conditions, second trimester (principal); R10.9 Unspecified abdominal pain; O09.522 Supervision of elderly multigravida, second trimester; O34.12 Maternal care for benign tumor of corpus uteri, second trimester; O99.322 Drug use complicating pregnancy, second trimester; F12.90 Cannabis use, unspecified, uncomplicated; O99.332 Smoking (tobacco) complicating pregnancy, second trimester; F17.200 Nicotine dependence, unspecified, uncomplicated; O10.912 Unspecified pre-existing hypertension complicating pregnancy, second trimester; Z3A.22 22 weeks gestation of pregnancy
CPT/HCPCS: 36415; 80053; 80307; 81001; 85027; 96361; 96365; 96366; 96372; 96374; J0595; J2405; J3105; J7120; 96360

== ENCOUNTER 2018-08-31 12:37 | Outpatient (CLI) | payer OTHER ==
[2018-08-31] MEDS ORDERED: LACTATED RINGERS 1,000 ML ONE ×2 (13:28→14:31)
[2018-08-31] MEDS ORDERED: ZOFRAN IV PRN (14:17)
[2018-08-31] MEDS ORDERED: BRETHINE SUB-Q ONE (14:23)
[2018-08-31] MEDS ORDERED: BRETHINE ONE (14:30)
[2018-08-31] MEDS ORDERED: PROCARDIA*For Tocolysis only PO ONE (15:43)
[2018-08-31] MEDS ORDERED: LACTATED RINGERS 1,000 ML IV SCH (16:00)
[2018-08-31 16:35] LABS: Alanine Aminotransferase 25 units/L (7-56); Albumin 3.3 g/dL (3.9-5); BUN/Creatinine Ratio 10; Blood Urea Nitrogen 4 mg/dL (7-17); Calcium 8.6 mg/dL (8.4-10.2); Hemolysis Index 10
[2018-08-31 17:15] LABS: Bilirubin,Urine NEG (Negative); Blood,Urine NEG (Negative); Color,Urine Yellow (Yellow); Mucus,Urine FEW /HPF; Protein,Urine <15 mg/dL mg/dL (Negative); Urobilinogen,Urine < 2.0 mg/dL (<2.0); WBC,Urine < 1.0 /HPF (0.0-6.0)
[2018-08-31 17:21] LABS: Amphetamine Screen,Urine PRESUMPTIVE NEGATIVE; Benzodiazepines Screen,Urine PRESUMPTIVE NEGATIVE; Cocaine Screen,Urine PRESUMPTIVE NEGATIVE; Methadone Screen,Urine PRESUMPTIVE NEGATIVE; Opiate Screen,Urine PRESUMPTIVE NEGATIVE
[2018-08-31 17:40] LABS: Cannabinoid Screen,Urine PRESUMPTIVE POSITIVE
[2018-08-31] MEDS ORDERED: PEPCID IV ONE (18:59)
[2018-08-31 19:23] VITALS: BP 114/59
--- NOTE | 2018-08-31 21:51 | Ultrasound Report ---
PROCEDURE: Limited obstetrical ultrasound. TECHNIQUE: Real-time limited sonographic examination was performed for evaluation of each fetus with image documentation (1 or more fetuses). HISTORY: Evaluate cervical length. COMPARISONS: Obstetrical ultrasound 08/24/2018. FINDINGS: There is a single viable fetus in cephalic presentation. Cardiac activity is documented at 165 bpm. T he cervix is closed and measures 3.3 cm in length. There are 2 probable uterine leiomyomas visible lo cated posteriorly near the cervix and laterally on the right side. IMPRESSION: Cervix measures 3.3 cm in length. This document is electronically signed by Jassi Guillen MD., August 31 2018 09:49:10 PM ET
[2018-08-31] MEDS ORDERED: FLAGYL PO SCH (22:00)
== END 2018-08-31 21:20 | disposition home or self-care (01) ==
LOC: TRG 12:37
PROVIDERS: ATTEND Obstetrics & Gynecology
DX: O21.2 Late vomiting of pregnancy (principal); O99.332 Smoking (tobacco) complicating pregnancy, second trimester; F17.200 Nicotine dependence, unspecified, uncomplicated; O99.322 Drug use complicating pregnancy, second trimester; F12.90 Cannabis use, unspecified, uncomplicated; O09.522 Supervision of elderly multigravida, second trimester; Z3A.23 23 weeks gestation of pregnancy
CPT/HCPCS: 36415; 59025; 76815; 80053; 80307; 81001; 87210; 87591; 96372; 96374; 96375; J2405; J3105; J7120; 96360

== ENCOUNTER 2018-11-16 16:05 | Observation (INO) | payer OTHER ==
[2018-11-16] MEDS ORDERED: LACTATED RINGERS 1,000 ML ONE (16:44)
[2018-11-16] MEDS ORDERED: ZOFRAN IM ONE (17:05)
[2018-11-16] MEDS ORDERED: LACTATED RINGERS 1,000 ML IV ONE (17:14)
[2018-11-16] MEDS ORDERED: MAGNESIUM SULFATE 4GM/100ML 4 GM/100 ML BAG IV ONE (17:32)
[2018-11-16] MEDS ORDERED: COLACE PO PRN (17:42)
--- NOTE | 2018-11-16 18:07 | History and Physical Report ---
History of Present Illness Date of examination: 11/16/18 Date of admission: 11/16/2018 Chief complaint: nausea and vomiting, contractions History of present illness: Patient presents to triage with c/o n&v since 0700 and contractions since 0800. She reports she tried PO zofran which did not help. She states the contractions are variable in length and time apart, she rates them 4 on pain scale. Patient denies any LOF or VB. +FM. 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 denies: abnormal PAP smear, cancer, chlamydia, gonorrhea, hepatitis B, hepatitis C, HIV, syphilis, trichomonas Family/Genetic History: hypertension (mother, mgm, pgf) Social history: single, lives with family (child), smoking (current smoker), prescription drug abuse (reports marijuana use ). denies: alcohol abuse, IV drug use - Obstetrical History Expected Date of Delivery: 12/28/18 Actual Gestation: 34 Week(s) 1 Day(s) : 3 Para: 1 Hx # Term Pregnancies: 0 Number of Pregnancies: 1 Spontaneous Abortions: 1 Induced : 0 Number of Living Children: 1 Medications and Allergies Allergies Allergy/AdvReac Type Severity Reaction Status Date / Time No Known Allergies Allergy Verified 08/27/18 23:32 Home Medications Medication Instructions Recorded Confirmed Last Taken Type Methyldopa [Aldomet] 250 mg PO BID 08/28/18 08/28/18 11/10/18 10:00 History 250 Active Meds: Active Medications Acetaminophen (Tylenol) 650 mg PO Q4H PRN PRN Reason: Pain MILD(1-3)/Fever >100.5/BECKER Betamethasone Acet/Betameth SodPhos (Celestone Soluspan) 12 mg IM Q24HR TEETEE Stop: 11/17/18 10:01 Docusate Sodium (Colace) 100 mg PO Q12H PRN PRN Reason: Constipation Lactated Ringer's (Lactated Ringers) 1,000 mls @ 999 mls/hr IV BOLUS ONE Stop: 11/16/18 18:14 Last Admin: 11/16/18 17:21 Dose: 999 mls/hr Documented by: Lactated Ringer's (Lactated Ringers) 1,000 mls @ 125 mls/hr IV DIRECT TEETEE Magnesium Sulfate (Magnesium Sulfate 40gm/1000ml) 40 gm in 1,000 mls @ 50 mls/hr IV DIRECT TEETEE Multivitamins/Iron/Calcium ( Vitamin) 1 each PO QDAY TEETEE Ondansetron HCl (Zofran) 4 mg IV Q6H PRN PRN Reason: Nausea And Vomiting Review of Systems All systems: negative Gastrointestinal: nausea, vomiting Genitourinary: contractions - Vital Signs Vital signs: Vital Signs Pulse BP 82 131/70 11/16/18 16:46 11/16/18 16:46 Temp Pulse Resp BP Pulse Ox 68 131/70 100 11/16/18 17:49 11/16/18 16:46 11/16/18 17:49 - Physical Exam Breasts: Positive: normal Cardiovascular: Regular rate, Normal S1, Normal S2 Lungs: Positive: Clear to auscultation, Normal air movement Abdomen: Positive: normal appearance, soft, normal bowel sounds. Negative: distention, tenderness Genitourinary (Female): Positive: normal external genitalia, normal perenium Vulva: both: normal (no lesions noted) Vagina: Positive: normal moisture. Negative: discharge Cervix: Negative: lesion, discharge Uterus: Positive: normal size, normal contour Adnexa: both: normal Anus/Rectum: Positive: normal perianal skin, heme negative. Negative: rectal mass, hemorrhoids Extremities: Positive: normal Deep Tendon Reflex Grade: Normal +2 - Obstetrical FHR: auscultation normal, category 1 Uterine Contraction Monitor Mode: External Cervical Dilatation: 3.5 Cervical Effacement Percentage: 60 station: -3 Uterine Contraction Frequency (min): 3-7 Uterine Contraction Pattern: Regular Uterine Tone Measurement Phase: Contraction Uterine Contraction Intensity: Moderate Results Result Diagrams: 11/16/18 20:13 11/16/18 20:13 All other labs normal. Assessment and Plan 33 y.o IUP at 34w0d presents to triage with c/o n&v and contractions since this morning. She reports she has not been able to keep anything down despite PO zofran. Patient reports she received care beginning in first trimester with Dr. Eileen Pathak, but that she has not been "in a few months due to insurance". Patient reports she was started on methyldopa with this for HTN, but is unsure is she was taking medications before or if she has ever been diagnosed with CHTN outside of . Patient reports hx of one vaginal delivery at 35 weeks, reports she was induced, but is unsure for what reason. SVE on admission is 3.5/60/-3, IBOW, vertex. Category 1 tracing at this time. Contractions on TOCO q3-7, palpating mild-moderate. Consult with Dr. Ruelas, will begin magnesium for neuroprotection and BMZ for lung maturity. labs ordered in EMR. Will continue to monitor for progressing labor.
[2018-11-16 18:27] LABS: Bacteria,Urine 2+ /HPF (Negative); Bilirubin,Urine NEG (Negative); Blood,Urine SM (Negative); Color,Urine Yellow (Yellow); Hyaline Casts,Urine 1 /LPF; Mucus,Urine 3+ /HPF; Urobilinogen,Urine < 2.0 mg/dL (<2.0)
[2018-11-16 18:29] LABS: Amphetamine Screen,Urine PRESUMPTIVE NEGATIVE; Benzodiazepines Screen,Urine PRESUMPTIVE NEGATIVE; Cocaine Screen,Urine PRESUMPTIVE NEGATIVE; Methadone Screen,Urine PRESUMPTIVE NEGATIVE; Opiate Screen,Urine PRESUMPTIVE NEGATIVE
[2018-11-16] MEDS: CELESTONE SOLUSPAN IM SCH (18:36)
[2018-11-16] MEDS: MAGNESIUM SULFATE 40GM/1000ML 40 GM/1,000 ML BAG IV SCH (18:39)
[2018-11-16 18:43] LABS: Cannabinoid Screen,Urine PRESUMPTIVE POSITIVE
[2018-11-16] MEDS: TYLENOL PO PRN (20:19)
[2018-11-16] MEDS ORDERED: BICITRA PO ONE (20:23)
[2018-11-16] MEDS ORDERED: TUMS PO ONE (20:32)
[2018-11-16] MEDS ORDERED: AMPICILLIN/NS 2 GM/100 ML 2 GM/100 ML BAG IV ONE (21:38)
[2018-11-16] MEDS: LACTATED RINGERS 1,000 ML IV SCH (21:40)
[2018-11-16] MEDS: ZOFRAN IV PRN (21:40)
[2018-11-16 21:49] LABS: Hematocrit 29.5 % (30.3-42.9); Mean Corpuscular HGB Conc 34 % (30-34); Mean Corpuscular Volume 86 fl (79-97); Platelet Count 308 K/mm3 (140-440); Red Blood Count 3.41 M/mm3 (3.65-5.03); Red Cell Distribution Width 15.7 % (13.2-15.2)
[2018-11-16] MEDS ORDERED: STADOL IV PRN (21:57)
[2018-11-16 22:21] LABS: Hepatitis C Virus Antibody Non-Reactive (NonReactive)
[2018-11-16 22:29] LABS: Band Neutrophils # (Manual) 0.1 K/mm3; Basophils % (Manual) 0 % (0.0-1.8); Eosinophils % (Manual) 0 % (0.0-4.3); Total Cells Counted 100
[2018-11-16 22:31] LABS: Anisocytosis 1+; Poikilocytosis Few
[2018-11-16 22:32] LABS: Hypochromasia 1+; Ovalocytes Few; Platelet Estimate Consistent w Auto
[2018-11-16 22:33] LABS: Giant Platelets Few
--- NOTE | 2018-11-16 22:36 | Event Note ---
Date: 11/16/18 Patient reports contractions are becoming stronger. SVE is 4.5/70/-2, vtx, IBOW. TOCO tracing contractions q3-4 min, palpating moderate. Cat 1 tracing at this time. Pt reports +FM, denies LOF or VB. Pt declines pain medications at this time. Stadol one time dose ordered for pain PRN. NICU consult Gerda bee NNP at bedside with patient. Reviewed lab results, BP, and assessment with Dr. Ruelas, will start labetalol 100 mg PO BID and send [facility] labs.
--- NOTE | 2018-11-16 22:39 | Consultation ---
Consult Note - Parent Education I met with parent(s) and discussed the following:: Need for NICU admission, Poss ible need for intubation and surfactant or other resp support, Temperature regulation, Possible need for IV fluids/TPN and IV antibiotics, Possible need for umbilical lines, Importance of providing breast milk & encouraged pumping aft delivery, Donor breast milk if baby meets criteria after , Slow feeding advancement and monitoring of tolerance. NG/OG feeds, Need to monitor for jaundice, Data for survival & survival without significant co-morbidities Parent(s) demonstrated understanding of all the information:: Yes Assessment and Plan - Assessment Gestation:: 34 Baby's name: Promise - Plan Plan: Agree with Mag & steroids Will attend delivery Please call NICU with questions
[2018-11-16] MEDS: NORMODYNE PO SCH (22:52)
[2018-11-16 22:58] LABS: Alanine Aminotransferase 31 units/L (7-56)
[2018-11-16 23:10] LABS: Uric Acid 3.4 mg/dL (3.5-7.6)
[2018-11-17] MEDS: TYLENOL PO PRN (01:54)
[2018-11-17] MEDS: AMPICILLIN/NS 1 GM/50 ML 1 GM/50 ML BAG IV SCH ×6 (01:55→22:47)
--- NOTE | 2018-11-17 07:27 | Progress Note ---
Assessment and Plan Pt resting with eyes closed, c/o inability to sleep d/t headache unrelieved by Tylenol. pt states she usually takes Tylenol #3 or Tylenol PM. Will give Tylenol and Benadryl together and see if BECKER improves. VSSAF. pt reports contractions have spaced out. denies SROM. last mag level 5.4 @ 0611. second dose BMZ @ 1845 tonight. all questions addressed with pt, pt verbalizes understanding. - Patient Problems (1) labor in third trimester Current Visit: Yes Status: Acute Qualifiers: Fetus number: single or unspecified fetus Plan to address problem: Continue mag sulfate and q6hr mag levels second dose of betamethasone due 1845 tonight NICU aware - will update on any changes in status (2) Marijuana use Current Visit: Yes Status: Acute (3) 34 weeks gestation of Current Visit: Yes Status: Acute (4) Chronic hypertension Current Visit: Yes Status: Acute Plan to address problem: Currently on Labetalol 100mg PO blood pressures normotensive at this time Continue to monitor Subjective - Subjective Date of service: 11/17/18 Principal diagnosis: IUP @ 34+2, labor Patient reports: new complaints (Headache "all night"), movement normal, no loss of fluid, no vaginal bleeding, no contractions Objective - Vital Signs Vital Signs: Vital Signs - 12hr 11/16/18 11/16/18 11/16/18 19:21 19:50 19:55 Temperature Pulse Rate 63 67 Respiratory Rate Blood Pressure Blood Pressure [Right] O2 Sat by Pulse 52 L 100 100 Oximetry 11/16/18 11/16/18 11/16/18 19:58 20:00 20:10 Temperature Pulse Rate 101 H 80 77 Respiratory Rate Blood Pressure Blood Pressure [Right] O2 Sat by Pulse 88 100 100 Oximetry 11/16/18 11/16/18 11/16/18 20:15 20:19 20:20 Temperature Pulse Rate 69 81 Respiratory 18 Rate Blood Pressure Blood Pressure [Right] O2 Sat by Pulse 100 100 Oximetry 11/16/18 11/16/18 11/16/18 20:25 20:30 20:33 Temperature Pulse Rate 62 70 114 H Respiratory Rate Blood Pressure Blood Pressure [Right] O2 Sat by Pulse 100 100 76 L Oximetry 06/17/19 06/17/19 06/17/19 20:35 20:40 20:45 Temperature Pulse Rate 60 71 68 Respiratory Rate Blood Pressure Blood Pressure [Right] O2 Sat by Pulse 100 99 100 Oximetry 11/16/18 11/16/18 11/16/18 20:49 20:50 20:51 Temperature 97.2 F L Pulse Rate 67 63 62 Respiratory 19 Rate Blood Pressure 146/80 Blood Pressure 146/80 [Right] O2 Sat by Pulse 99 100 Oximetry 11/16/18 11/16/18 11/16/18 20:55 21:00 21:05 Temperature Pulse Rate 83 83 62 Respiratory Rate Blood Pressure Blood Pressure [Right] O2 Sat by Pulse 92 70 L 100 Oximetry 11/16/18 11/16/18 11/16/18 21:10 21:15 21:19 Temperature Pulse Rate 72 63 Respiratory 18 Rate Blood Pressure Blood Pressure [Right] O2 Sat by Pulse 100 100 Oximetry 11/16/18 11/16/18 11/16/18 21:20 21:25 21:30 Temperature Pulse Rate 60 77 62 Respiratory Rate Blood Pressure Blood Pressure [Right] O2 Sat by Pulse 100 100 100 Oximetry 11/16/18 11/16/18 11/16/18 21:35 21:40 21:45 Temperature Pulse Rate 74 74 88 Respiratory Rate Blood Pressure Blood Pressure [Right] O2 Sat by Pulse 100 100 99 Oximetry 11/16/18 11/16/18 11/16/18 21:50 21:51 21:56 Temperature Pulse Rate 68 92 H Respiratory Rate Blood Pressure Blood Pressure [Right] O2 Sat by Pulse 93 100 87 Oximetry 11/16/18 11/16/18 11/16/18 22:01 22:03 22:06 Temperature Pulse Rate 65 71 77 Respiratory Rate Blood Pressure Blood Pressure [Right] O2 Sat by Pulse 96 0 L 100 Oximetry 11/16/18 11/16/18 11/16/18 22:11 22:16 22:21 Temperature Pulse Rate 75 72 68 Respiratory Rate Blood Pressure Blood Pressure [Right] O2 Sat by Pulse 100 100 100 Oximetry 11/16/18 11/16/18 11/16/18 22:26 22:31 22:36 Temperature Pulse Rate 70 107 H 67 Respiratory Rate Blood Pressure Blood Pressure [Right] O2 Sat by Pulse 100 97 100 Oximetry 11/16/18 11/16/18 11/16/18 22:41 22:46 22:51 Temperature Pulse Rate 81 72 69 Respiratory Rate Blood Pressure Blood Pressure [Right] O2 Sat by Pulse 100 99 100 Oximetry 11/16/18 11/16/18 11/16/18 22:52 22:56 23:01 Temperature Pulse Rate 74 72 87 Respiratory Rate Blood Pressure 146/80 134/77 Blood Pressure [Right] O2 Sat by Pulse 100 100 Oximetry 11/16/18 11/16/18 11/16/18 23:06 23:11 23:16 Temperature Pulse Rate 96 H 74 75 Respiratory Rate Blood Pressure Blood Pressure [Right] O2 Sat by Pulse 100 100 100 Oximetry 11/16/18 11/16/18 11/16/18 23:21 23:24 23:26 Temperature Pulse Rate 93 H 85 77 Respiratory Rate Blood Pressure 147/80 Blood Pressure [Right] O2 Sat by Pulse 100 100 Oximetry 11/16/18 11/16/18 11/16/18 23:31 23:36 23:41 Temperature Pulse Rate 69 86 88 Respiratory Rate Blood Pressure Blood Pressure [Right] O2 Sat by Pulse 100 100 100 Oximetry 11/16/18 11/16/18 11/16/18 23:46 23:51 23:54 Temperature Pulse Rate 97 H 90 93 H Respiratory Rate Blood Pressure 157/94 Blood Pressure [Right] O2 Sat by Pulse 100 100 Oximetry 11/16/18 11/17/18 11/17/18 23:56 00:01 00:06 Temperature Pulse Rate 85 71 75 Respiratory Rate Blood Pressure Blood Pressure [Right] O2 Sat by Pulse 100 99 100 Oximetry 11/17/18 11/17/18 11/17/18 00:10 00:11 00:16 Temperature Pulse Rate 113 H 72 87 Respiratory Rate Blood Pressure Blood Pressure [Right] O2 Sat by Pulse 50 L 100 100 Oximetry 11/17/18 11/17/18 11/17/18 00:21 00:23 00:26 Temperature Pulse Rate 97 H 92 H 68 Respiratory Rate Blood Pressure 142/82 Blood Pressure [Right] O2 Sat by Pulse 100 100 Oximetry 11/17/18 11/17/18 11/17/18 00:29 00:31 00:36 Temperature Pulse Rate 119 H 96 H 75 Respiratory Rate Blood Pressure Blood Pressure [Right] O2 Sat by Pulse 91 100 100 Oximetry 11/17/18 11/17/18 11/17/18 00:39 00:41 00:46 Temperature Pulse Rate 109 H 81 81 Respiratory Rate Blood Pressure Blood Pressure [Right] O2 Sat by Pulse 93 100 100 Oximetry 11/17/18 11/17/18 11/17/18 00:51 00:53 00:56 Temperature Pulse Rate 85 93 H 81 Respiratory Rate Blood Pressure 107/67 Blood Pressure [Right] O2 Sat by Pulse 100 100 Oximetry 11/17/18 11/17/18 11/17/18 01:01 01:06 01:11 Temperature Pulse Rate 89 82 77 Respiratory Rate Blood Pressure Blood Pressure [Right] O2 Sat by Pulse 100 99 100 Oximetry 11/17/18 11/17/18 11/17/18 01:16 01:21 01:22 Temperature Pulse Rate 82 91 H 95 H Respiratory Rate Blood Pressure Blood Pressure [Right] O2 Sat by Pulse 100 96 92 Oximetry 11/17/18 11/17/18 11/17/18 01:23 01:26 01:29 Temperature Pulse Rate 72 60 76 Respiratory Rate Blood Pressure 137/77 Blood Pressure [Right] O2 Sat by Pulse 99 92 Oximetry 11/17/18 11/17/18 11/17/18 01:31 01:35 01:36 Temperature Pulse Rate 73 111 H 92 H Respiratory Rate Blood Pressure Blood Pressure [Right] O2 Sat by Pulse 98 82 L 100 Oximetry 11/17/18 11/17/18 11/17/18 01:41 01:46 01:50 Temperature Pulse Rate 86 86 72 Respiratory Rate Blood Pressure Blood Pressure [Right] O2 Sat by Pulse 99 99 80 L Oximetry 11/17/18 11/17/18 11/17/18 01:51 01:53 01:54 Temperature Pulse Rate 84 83 Respiratory 19 Rate Blood Pressure 104/59 Blood Pressure [Right] O2 Sat by Pulse 99 Oximetry 11/17/18 11/17/18 11/17/18 01:56 02:01 02:06 Temperature Pulse Rate 80 82 87 Respiratory Rate Blood Pressure Blood Pressure [Right] O2 Sat by Pulse 98 99 97 Oximetry 11/17/18 11/17/18 11/17/18 02:11 02:16 02:21 Temperature Pulse Rate 82 96 H 67 Respiratory Rate Blood Pressure Blood Pressure [Right] O2 Sat by Pulse 99 99 99 Oximetry 11/17/18 11/17/18 11/17/18 02:23 02:26 02:31 Temperature Pulse Rate 72 81 81 Respiratory Rate Blood Pressure 98/54 Blood Pressure [Right] O2 Sat by Pulse 99 98 Oximetry 11/17/18 11/17/18 11/17/18 02:36 02:41 02:46 Temperature Pulse Rate 74 78 71 Respiratory Rate Blood Pressure Blood Pressure [Right] O2 Sat by Pulse 98 98 99 Oximetry 11/17/18 11/17/18 11/17/18 02:51 02:53 02:54 Temperature Pulse Rate 105 H 87 Respiratory 18 Rate Blood Pressure 107/57 Blood Pressure [Right] O2 Sat by Pulse 98 Oximetry 11/17/18 11/17/18 11/17/18 02:56 03:00 03:01 Temperature Pulse Rate 86 90 78 Respiratory Rate Blood Pressure Blood Pressure [Right] O2 Sat by Pulse 97 94 99 Oximetry 11/17/18 11/17/18 11/17/18 03:06 03:11 03:16 Temperature Pulse Rate 84 99 H 68 Respiratory Rate Blood Pressure Blood Pressure [Right] O2 Sat by Pulse 98 98 99 Oximetry 11/17/18 11/17/18 11/17/18 03:21 03:23 03:26 Temperature Pulse Rate 84 103 H 80 Respiratory Rate Blood Pressure 111/63 Blood Pressure [Right] O2 Sat by Pulse 98 99 Oximetry 11/17/18 11/17/18 11/17/18 03:31 03:36 03:41 Temperature Pulse Rate 90 71 87 Respiratory Rate Blood Pressure Blood Pressure [Right] O2 Sat by Pulse 100 99 98 Oximetry 11/17/18 11/17/18 11/17/18 03:46 03:51 03:54 Temperature Pulse Rate 73 67 82 Respiratory Rate Blood Pressure 119/70 Blood Pressure [Right] O2 Sat by Pulse 100 100 Oximetry 11/17/18 11/17/18 11/17/18 03:56 04:01 04:06 Temperature Pulse Rate 93 H 84 90 Respiratory Rate Blood Pressure Blood Pressure [Right] O2 Sat by Pulse 99 100 97 Oximetry 11/17/18 11/17/18 11/17/18 04:11 04:16 04:21 Temperature Pulse Rate 67 80 80 Respiratory Rate Blood Pressure Blood Pressure [Right] O2 Sat by Pulse 98 98 98 Oximetry 11/17/18 11/17/18 11/17/18 04:23 04:26 04:31 Temperature Pulse Rate 96 H 82 92 H Respiratory Rate Blood Pressure 104/69 Blood Pressure [Right] O2 Sat by Pulse 98 100 Oximetry 11/17/18 11/17/18 11/17/18 04:36 04:41 04:46 Temperature Pulse Rate 79 76 81 Respiratory Rate Blood Pressure Blood Pressure [Right] O2 Sat by Pulse 99 98 98 Oximetry 11/17/18 11/17/18 11/17/18 04:51 04:53 04:56 Temperature Pulse Rate 85 106 H 88 Respiratory Rate Blood Pressure 110/61 Blood Pressure [Right] O2 Sat by Pulse 97 100 Oximetry 11/17/18 11/17/18 11/17/18 05:01 05:06 05:11 Temperature Pulse Rate 109 H 87 80 Respiratory Rate Blood Pressure Blood Pressure [Right] O2 Sat by Pulse 99 99 96 Oximetry 11/17/18 11/17/18 11/17/18 05:16 05:21 05:23 Temperature Pulse Rate 83 73 76 Respiratory Rate Blood Pressure 98/53 Blood Pressure [Right] O2 Sat by Pulse 99 100 Oximetry 11/17/18 11/17/18 11/17/18 05:26 05:31 05:36 Temperature Pulse Rate 96 H 84 81 Respiratory Rate Blood Pressure Blood Pressure [Right] O2 Sat by Pulse 99 99 99 Oximetry 11/17/18 11/17/18 11/17/18 05:41 05:46 05:51 Temperature Pulse Rate 70 112 H 96 H Respiratory Rate Blood Pressure Blood Pressure [Right] O2 Sat by Pulse 99 95 100 Oximetry 11/17/18 11/17/18 11/17/18 05:54 05:55 05:56 Temperature Pulse Rate 81 91 H 74 Respiratory Rate Blood Pressure 117/71 Blood Pressure [Right] O2 Sat by Pulse 91 100 Oximetry 11/17/18 11/17/18 11/17/18 06:01 06:03 06:06 Temperature Pulse Rate 84 110 H 85 Respiratory Rate Blood Pressure Blood Pressure [Right] O2 Sat by Pulse 100 92 99 Oximetry 11/17/18 11/17/18 11/17/18 06:11 06:16 06:21 Temperature Pulse Rate 104 H 82 89 Respiratory Rate Blood Pressure Blood Pressure [Right] O2 Sat by Pulse 99 100 100 Oximetry 11/17/18 11/17/18 11/17/18 06:24 06:26 06:31 Temperature Pulse Rate 68 92 H 96 H Respiratory Rate Blood Pressure 109/63 Blood Pressure [Right] O2 Sat by Pulse 98 99 Oximetry 11/17/18 11/17/18 11/17/18 06:36 06:41 06:46 Temperature Pulse Rate 84 98 H 94 H Respiratory Rate Blood Pressure Blood Pressure [Right] O2 Sat by Pulse 99 100 100 Oximetry 11/17/18 11/17/18 11/17/18 06:51 06:53 06:56 Temperature Pulse Rate 72 77 111 H Respiratory Rate Blood Pressure 114/73 Blood Pressure [Right] O2 Sat by Pulse 99 100 Oximetry 11/17/18 11/17/18 11/17/18 07:01 07:06 07:11 Temperature Pulse Rate 75 105 H 78 Respiratory Rate Blood Pressure Blood Pressure [Right] O2 Sat by Pulse 99 96 100 Oximetry 11/17/18 11/17/18 07:14 07:16 Temperature Pulse Rate 109 H 66 Respiratory Rate Blood Pressure Blood Pressure [Right] O2 Sat by Pulse 85 97 Oximetry - Exam Breasts: normal Cardiovascular: Regular rate Lungs: Clear to auscultation, Normal air movement Abdomen: Present: normal appearance, soft Vulva: both: normal Uterus: Present: normal FHR: auscultation normal Uterine Contraction Monitor Mode: External Uterine Contraction Pattern: Irregular Uterine Tone Measurement Phase: Resting Extremities: normal Deep Tendon Reflex Grade: Normal +2 - Labs Labs: Abnormal Labs 11/16/18 11/16/18 11/16/18 20:13 20:13 20:13 RBC 3.41 L Hgb 10.0 L Hct 29.5 L RDW 15.7 H Seg Neuts % (Manual) 90.0 H Lymphocytes % (Manual) 6.0 L Seg Neutrophils # Man 9.5 H Lymphocytes # (Manual) 0.6 L Creatinine 0.3 L Uric Acid 3.4 L Magnesium 4.00 H AST 41 H Lactate Dehydrogenase 265 H 11/17/18 06:11 RBC Hgb Hct RDW Seg Neuts % (Manual) Lymphocytes % (Manual) Seg Neutrophils # Man Lymphocytes # (Manual) Creatinine Uric Acid Magnesium 5.40 H AST Lactate Dehydrogenase Laboratory Results - last 24 hr 11/16/18 11/16/18 11/16/18 20:02 20:02 20:13 WBC 10.5 RBC 3.41 L Hgb 10.0 L Hct 29.5 L MCV 86 MCH 29 MCHC 34 RDW 15.7 H Plt Count 308 Add Manual Diff Complete Total Counted 100 Seg Neutrophils % Metal Model Maker Seg Neuts % (Manual) 90.0 H Band Neutrophils % 1.0 Lymphocytes % (Manual) 6.0 L Reactive Lymphs % (Man) 0 Monocytes % (Manual) 3.0 Eosinophils % (Manual) 0 Basophils % (Manual) 0 Metamyelocytes % 0 Myelocytes % 0 Promyelocytes % 0 Blast Cells % 0 Nucleated RBC % Not Reportable Seg Neutrophils # Man 9.5 H Band Neutrophils # 0.1 Lymphocytes # (Manual) 0.6 L Abs React Lymphs (Man) 0.0 Monocytes # (Manual) 0.3 Eosinophils # (Manual) 0.0 Basophils # (Manual) 0.0 Metamyelocytes # 0.0 Myelocytes # 0.0 Promyelocytes # 0.0 Blast Cells # 0.0 WBC Morphology Not Reportable Hypersegmented Neuts Not Reportable Hyposegmented Neuts Not Reportable Hypogranular Neuts Not Reportable Smudge Cells Not Reportable Toxic Granulation Not Reportable Toxic Vacuolation Not Reportable Dohle Bodies Not Reportable Pelger-Huet Anomaly Not Reportable Myriam Rods Not Reportable Platelet Estimate Consistent w auto Clumped Platelets Not Reportable Plt Clumps, EDTA Not Reportable Large Platelets Not Reportable Giant Platelets Few Platelet Satelliting Not Reportable Plt Morphology Comment Not Reportable RBC Morphology Not Reportable Dimorphic RBCs Not Reportable Polychromasia Few Hypochromasia 1+ Poikilocytosis Few Anisocytosis 1+ Microcytosis Not Reportable Macrocytosis Not Reportable Spherocytes Not Reportable Pappenheimer Bodies Not Reportable Sickle Cells Not Reportable Target Cells Not Reportable Tear Drop Cells Not Reportable Ovalocytes Few Helmet Cells Not Reportable Hernández-Ingalls Bodies Not Reportable [place] Rings Not Reportable [place] Cells Not Reportable Bite Cells Not Reportable Crenated Cell Not Reportable Elliptocytes Not Reportable Acanthocytes (Spur) Not Reportable Rouleaux Not Reportable Hemoglobin C Crystals Not Reportable Schistocytes Not Reportable Malaria parasites Not Reportable Milo Bodies Not Reportable Hem Pathologist Commnt No Creatinine Estimated GFR Uric Acid Magnesium AST ALT Lactate Dehydrogenase Urine Color Urine Turbidity Urine pH Ur Specific [place] Urine Protein Urine Glucose (UA) Urine Ketones Urine Blood Urine Nitrite Urine Bilirubin Urine Urobilinogen Ur Leukocyte Esterase Urine WBC (Auto) Urine RBC (Auto) U Epithel Cells (Auto) Urine Bacteria (Auto) Hyaline Casts Urine Mucus Urine Yeast (Budding) Urine Opiates Screen Urine Methadone Screen Ur Barbiturates Screen Ur Phencyclidine Scrn Ur Amphetamines Screen U Benzodiazepines Scrn Urine Cocaine Screen U Marijuana (THC) Screen Drugs of Abuse Note Hep Bs Antigen Non-reactive Hepatitis C Antibody HIV 1&2 Antibody Rapid HIV P24 Antigen Rubella IgG Antibody Blood Type O POSITIVE Antibody Screen Negative 11/16/18 11/16/18 11/16/18 20:13 20:13 20:13 WBC RBC Hgb Hct MCV MCH MCHC RDW Plt Count Add Manual Diff Total Counted Seg Neutrophils % Seg Neuts % (Manual) Band Neutrophils % Lymphocytes % (Manual) Reactive Lymphs % (Man) Monocytes % (Manual) Eosinophils % (Manual) Basophils % (Manual) Metamyelocytes % Myelocytes % Promyelocytes % Blast Cells % Nucleated RBC % Seg Neutrophils # Man Band Neutrophils # Lymphocytes # (Manual) Abs React Lymphs (Man) Monocytes # (Manual) Eosinophils # (Manual) Basophils # (Manual) Metamyelocytes # Myelocytes # Promyelocytes # Blast Cells # WBC Morphology Hypersegmented Neuts Hyposegmented Neuts Hypogranular Neuts Smudge Cells Toxic Granulation Toxic Vacuolation Dohle Bodies Pelger-Huet Anomaly Myriam Rods Platelet Estimate Clumped Platelets Plt Clumps, EDTA Large Platelets Giant Platelets Platelet Satelliting Plt Morphology Comment RBC Morphology Dimorphic RBCs Polychromasia Hypochromasia Poikilocytosis Anisocytosis Microcytosis Macrocytosis Spherocytes Pappenheimer Bodies Sickle Cells Target Cells Tear Drop Cells Ovalocytes Helmet Cells Hernández-Ingalls Bodies [place] Rings [place] Cells Bite Cells Crenated Cell Elliptocytes Acanthocytes (Spur) Rouleaux Hemoglobin C Crystals Schistocytes Malaria parasites Milo Bodies Hem Pathologist Commnt Creatinine 0.3 L Estimated GFR > 60 Uric Acid 3.4 L Magnesium 4.00 H AST 41 H ALT 31 Lactate Dehydrogenase 265 H Urine Color Urine Turbidity Urine pH Ur Specific [place] Urine Protein Urine Glucose (UA) Urine Ketones Urine Blood Urine Nitrite Urine Bilirubin Urine Urobilinogen Ur Leukocyte Esterase Urine WBC (Auto) Urine RBC (Auto) U Epithel Cells (Auto) Urine Bacteria (Auto) Hyaline Casts Urine Mucus Urine Yeast (Budding) Urine Opiates Screen Urine Methadone Screen Ur Barbiturates Screen Ur Phencyclidine Scrn Ur Amphetamines Screen U Benzodiazepines Scrn Urine Cocaine Screen U Marijuana (THC) Screen Drugs of Abuse Note Hep Bs Antigen Hepatitis C Antibody HIV 1&2 Antibody Rapid Non react HIV P24 Antigen Non react Rubella IgG Antibody Blood Type Antibody Screen 11/16/18 11/16/18 11/16/18 20:14 Unknown Unknown WBC RBC Hgb Hct MCV MCH MCHC RDW Plt Count Add Manual Diff Total Counted Seg Neutrophils % Seg Neuts % (Manual) Band Neutrophils % Lymphocytes % (Manual) Reactive Lymphs % (Man) Monocytes % (Manual) Eosinophils % (Manual) Basophils % (Manual) Metamyelocytes % Myelocytes % Promyelocytes % Blast Cells % Nucleated RBC % Seg Neutrophils # Man Band Neutrophils # Lymphocytes # (Manual) Abs React Lymphs (Man) Monocytes # (Manual) Eosinophils # (Manual) Basophils # (Manual) Metamyelocytes # Myelocytes # Promyelocytes # Blast Cells # WBC Morphology Hypersegmented Neuts Hyposegmented Neuts Hypogranular Neuts Smudge Cells Toxic Granulation Toxic Vacuolation Dohle Bodies Pelger-Huet Anomaly Myriam Rods Platelet Estimate Clumped Platelets Plt Clumps, EDTA Large Platelets Giant Platelets Platelet Satelliting Plt Morphology Comment RBC Morphology Dimorphic RBCs Polychromasia Hypochromasia Poikilocytosis Anisocytosis Microcytosis Macrocytosis Spherocytes Pappenheimer Bodies Sickle Cells Target Cells Tear Drop Cells Ovalocytes Helmet Cells Hernández-Ingalls Bodies [place] Rings Joshua Cells Bite Cells Crenated Cell Elliptocytes Acanthocytes (Spur) Rouleaux Hemoglobin C Crystals Schistocytes Malaria parasites Milo Bodies Hem Pathologist Commnt Creatinine Estimated GFR Uric Acid Magnesium AST ALT Lactate Dehydrogenase Urine Color Yellow Urine Turbidity Cloudy Urine pH 7.0 Ur Specific [place] 1.024 Urine Protein 100 mg/dl Urine Glucose (UA) Neg Urine Ketones 80 Urine Blood Sm Urine Nitrite Neg Urine Bilirubin Neg Urine Urobilinogen < 2.0 Ur Leukocyte Esterase Sm Urine WBC (Auto) 6.0 Urine RBC (Auto) 13.0 U Epithel Cells (Auto) 9.0 Urine Bacteria (Auto) 2+ Hyaline Casts 1 Urine Mucus 3+ Urine Yeast (Budding) 1+ Urine Opiates Screen Presumptive negative Urine Methadone Screen Presumptive negative Ur Barbiturates Screen Presumptive negative Ur Phencyclidine Scrn Presumptive negative Ur Amphetamines Screen Presumptive negative U Benzodiazepines Scrn Presumptive negative Urine Cocaine Screen Presumptive negative U Marijuana (THC) Screen Presumptive positive Drugs of Abuse Note Disclamer Hep Bs Antigen Hepatitis C Antibody Non-reactive HIV 1&2 Antibody Rapid HIV P24 Antigen Rubella IgG Antibody Immune Blood Type Antibody Screen 11/17/18 06:11 WBC RBC Hgb Hct MCV MCH MCHC RDW Plt Count Add Manual Diff Total Counted Seg Neutrophils % Seg Neuts % (Manual) Band Neutrophils % Lymphocytes % (Manual) Reactive Lymphs % (Man) Monocytes % (Manual) Eosinophils % (Manual) Basophils % (Manual) Metamyelocytes % Myelocytes % Promyelocytes % Blast Cells % Nucleated RBC % Seg Neutrophils # Man Band Neutrophils # Lymphocytes # (Manual) Abs React Lymphs (Man) Monocytes # (Manual) Eosinophils # (Manual) Basophils # (Manual) Metamyelocytes # Myelocytes # Promyelocytes # Blast Cells # WBC Morphology Hypersegmented Neuts Hyposegmented Neuts Hypogranular Neuts Smudge Cells Toxic Granulation Toxic Vacuolation Dohle Bodies Pelger-Huet Anomaly Myriam Rods Platelet Estimate Clumped Platelets Plt Clumps, EDTA Large Platelets Giant Platelets Platelet Satelliting Plt Morphology Comment RBC Morphology Dimorphic RBCs Polychromasia Hypochromasia Poikilocytosis Anisocytosis Microcytosis Macrocytosis Spherocytes Pappenheimer Bodies Sickle Cells Target Cells Tear Drop Cells Ovalocytes Helmet Cells Hernández-Ingalls Bodies [place] Rings [place] Cells Bite Cells Crenated Cell Elliptocytes Acanthocytes (Spur) Rouleaux Hemoglobin C Crystals Schistocytes Malaria parasites Milo Bodies Hem Pathologist Commnt Creatinine Estimated GFR Uric Acid Magnesium 5.40 H AST ALT Lactate Dehydrogenase Urine Color Urine Turbidity Urine pH Ur Specific [place] Urine Protein Urine Glucose (UA) Urine Ketones Urine Blood Urine Nitrite Urine Bilirubin Urine Urobilinogen Ur Leukocyte Esterase Urine WBC (Auto) Urine RBC (Auto) U Epithel Cells (Auto) Urine Bacteria (Auto) Hyaline Casts Urine Mucus Urine Yeast (Budding) Urine Opiates Screen Urine Methadone Screen Ur Barbiturates Screen Ur Phencyclidine Scrn Ur Amphetamines Screen U Benzodiazepines Scrn Urine Cocaine Screen U Marijuana (THC) Screen Drugs of Abuse Note Hep Bs Antigen Hepatitis C Antibody HIV 1&2 Antibody Rapid HIV P24 Antigen Rubella IgG Antibody Blood Type Antibody Screen
[2018-11-17] MEDS ORDERED: TYLENOL PO NR (07:56)
[2018-11-17] MEDS ORDERED: BENADRYL PO NR (08:00)
[2018-11-17] MEDS: PRENATAL VITAMIN PO SCH (10:01)
[2018-11-17] MEDS: NORMODYNE PO SCH ×2 (10:02→21:27)
[2018-11-17] MEDS: MAGNESIUM SULFATE 40GM/1000ML 40 GM/1,000 ML BAG IV SCH (13:22)
[2018-11-17] MEDS: LACTATED RINGERS 1,000 ML IV SCH (13:23)
--- NOTE | 2018-11-17 16:14 | Event Note ---
Date: 11/17/18 Per nurse, pt sleeping most of the day following Tylenol/Benadryl from this morning. Pt reports BECKER still unrelieved from last night. She states she has hx of BECKER before but never saw neuro. normotensive. pt denies feeling ctx. occasional ctx noted on toco, FHT CAT 1 when tracing. no leaking or bleeding. Will consult Dr. Isabel.
[2018-11-17] MEDS ORDERED: FIORICET PO ONE (17:16)
[2018-11-17] MEDS: CELESTONE SOLUSPAN IM SCH (18:50)
[2018-11-17] MEDS: ZOFRAN IV PRN (19:51)
[2018-11-18] MEDS: TYLENOL PO PRN (02:11)
[2018-11-18] MEDS ORDERED: ALUM-MAG HYDROX-SIMETH 200-200-20MG/5ML PO PRN (02:24)
[2018-11-18] MEDS: LACTATED RINGERS 1,000 ML IV SCH (02:36)
[2018-11-18] MEDS: AMPICILLIN/NS 1 GM/50 ML 1 GM/50 ML BAG IV SCH ×2 (02:36→06:12)
--- NOTE | 2018-11-18 08:09 | Progress Note ---
Assessment and Plan 34w2d patient admitted for PTL, N/V. Patient sleeping in bed, arouses easily. Patient reports occasional mild contractions, "here and there, much better". SVE is unchanged since 2300 on 11/16, IBOW, no blood noted on exam glove. Patient denies any vaginal bleeding or LOF. +FM. Patient reports N/V is resolved, she is tolerating PO food and fluids at this time. Patient reports a BECKER still since magnesium started. Pt declines medications at this time, reports "it's from the magnesium, I just want it off and to go home". Patient denies any visual disturbances, RUQ pain. DTRs 2+. Assessment WNL. BPs 110-120/60-70. Cat 1 tracing at this time. Abdomen is soft, non-tender, one contraction palpated while at bedside, mild. Consult with Dr. Ruelas, orders to discontinue magnesium infusion at this time. Will continue to monitor for labor and monitor BPs. Will reassess for discharge in a few hours. Subjective - Subjective Date of service: 11/18/18 Principal diagnosis: IUP @ 34+2, labor Patient reports: new complaints ("I still have a headache since the magnesium started"), movement normal, contractions (mild, occasional "much better"), no loss of fluid, no vaginal bleeding Objective - Vital Signs Vital Signs: Vital Signs - 12hr 11/17/18 11/17/18 11/17/18 20:08 20:13 20:18 Temperature Pulse Rate 84 83 84 Respiratory Rate Blood Pressure Blood Pressure [Right] O2 Sat by Pulse 100 100 100 Oximetry 11/17/18 11/17/18 11/17/18 20:23 20:28 20:33 Temperature Pulse Rate 85 90 74 Respiratory Rate Blood Pressure Blood Pressure [Right] O2 Sat by Pulse 99 100 96 Oximetry 11/17/18 11/17/18 11/17/18 20:38 20:43 20:48 Temperature Pulse Rate 82 94 H 77 Respiratory Rate Blood Pressure Blood Pressure [Right] O2 Sat by Pulse 99 100 98 Oximetry 11/17/18 11/17/18 11/17/18 20:53 20:58 21:03 Temperature Pulse Rate 86 82 83 Respiratory Rate Blood Pressure 112/60 Blood Pressure [Right] O2 Sat by Pulse 100 100 100 Oximetry 0611/17/18 11/17/18 21:08 21:13 21:18 Temperature Pulse Rate 77 91 H 78 Respiratory Rate Blood Pressure Blood Pressure [Right] O2 Sat by Pulse 100 100 100 Oximetry 11/17/18 11/17/18 11/17/18 21:23 21:27 21:28 Temperature Pulse Rate 91 H 94 H 78 Respiratory Rate Blood Pressure 145/67 145/67 Blood Pressure [Right] O2 Sat by Pulse 100 100 Oximetry 11/17/18 11/17/18 11/17/18 21:33 21:36 21:38 Temperature Pulse Rate 89 77 84 Respiratory Rate Blood Pressure Blood Pressure [Right] O2 Sat by Pulse 83 L 65 L 100 Oximetry 11/17/18 11/17/18 11/17/18 21:44 21:49 21:50 Temperature Pulse Rate 43 L 97 H 102 H Respiratory Rate Blood Pressure Blood Pressure [Right] O2 Sat by Pulse 87 91 66 L Oximetry 11/17/18 11/17/18 11/17/18 21:54 21:57 22:53 Temperature Pulse Rate 94 H 104 H 83 Respiratory Rate Blood Pressure 125/78 126/72 Blood Pressure [Right] O2 Sat by Pulse 100 89 Oximetry 11/17/18 11/17/18 11/17/18 23:43 23:48 23:52 Temperature Pulse Rate 96 H 94 H 88 Respiratory Rate Blood Pressure Blood Pressure [Right] O2 Sat by Pulse 70 L 99 99 Oximetry 11/17/18 11/17/18 11/18/18 23:53 23:58 00:42 Temperature Pulse Rate 82 94 H Respiratory Rate Blood Pressure 129/75 Blood Pressure [Right] O2 Sat by Pulse 98 38 L Oximetry 11/18/18 11/18/18 11/18/18 00:47 00:52 00:53 Temperature Pulse Rate 81 84 81 Respiratory Rate Blood Pressure 111/71 Blood Pressure [Right] O2 Sat by Pulse 99 99 Oximetry 11/18/18 11/18/18 11/18/18 00:57 01:02 01:07 Temperature Pulse Rate 79 80 102 H Respiratory Rate Blood Pressure Blood Pressure [Right] O2 Sat by Pulse 100 100 100 Oximetry 11/18/18 11/18/18 11/18/18 01:09 01:12 01:17 Temperature Pulse Rate 101 H 84 89 Respiratory Rate Blood Pressure Blood Pressure [Right] O2 Sat by Pulse 82 L 99 100 Oximetry 11/18/18 11/18/18 11/18/18 01:22 01:27 01:32 Temperature Pulse Rate 94 H 89 91 H Respiratory Rate Blood Pressure Blood Pressure [Right] O2 Sat by Pulse 100 100 100 Oximetry 11/18/18 11/18/18 11/18/18 01:37 01:42 01:47 Temperature Pulse Rate 89 89 104 H Respiratory Rate Blood Pressure Blood Pressure [Right] O2 Sat by Pulse 100 100 99 Oximetry 11/18/18 11/18/18 11/18/18 01:54 02:04 02:53 Temperature 97.5 F L Pulse Rate 81 78 Respiratory 18 Rate Blood Pressure 125/73 125/69 Blood Pressure [Right] O2 Sat by Pulse Oximetry 11/18/18 11/18/18 11/18/18 03:53 04:53 05:53 Temperature Pulse Rate 68 71 78 Respiratory Rate Blood Pressure 110/63 117/71 123/64 Blood Pressure [Right] O2 Sat by Pulse Oximetry 11/18/18 11/18/18 11/18/18 06:13 06:53 07:53 Temperature 97.4 F L Pulse Rate 80 99 H 85 Respiratory 18 Rate Blood Pressure 115/67 122/70 116/62 Blood Pressure 115/67 [Right] O2 Sat by Pulse Oximetry - Exam Cardiovascular: Regular rate, Normal S1, Normal S2 Lungs: Clear to auscultation, Normal air movement Abdomen: Present: normal appearance, soft, normal bowel sounds. Absent: distention, tenderness Vulva: both: normal Uterus: Present: normal FHR: auscultation normal Uterine Contraction Monitor Mode: External Cervical Dilatation: 3.5 Cervical Effacement Percentage: 60 station: -3 Uterine Contraction Frequency (min): occasional Uterine Contraction Pattern: Irregular Uterine Tone Measurement Phase: Contraction Uterine Contraction Intensity: Mild Extremities: normal Deep Tendon Reflex Grade: Normal +2 - Labs Labs: Abnormal Labs 11/16/18 11/16/18 11/16/18 20:13 20:13 20:13 RBC 3.41 L Hgb 10.0 L Hct 29.5 L RDW 15.7 H Seg Neuts % (Manual) 90.0 H Lymphocytes % (Manual) 6.0 L Seg Neutrophils # Man 9.5 H Lymphocytes # (Manual) 0.6 L Creatinine 0.3 L Uric Acid 3.4 L Magnesium 4.00 H AST 41 H Lactate Dehydrogenase 265 H 11/17/18 11/17/18 11/17/18 06:11 12:00 18:04 RBC Hgb Hct RDW Seg Neuts % (Manual) Lymphocytes % (Manual) Seg Neutrophils # Man Lymphocytes # (Manual) Creatinine Uric Acid Magnesium 5.40 H 5.70 H 4.80 H AST Lactate Dehydrogenase 11/18/18 00:15 RBC Hgb Hct RDW Seg Neuts % (Manual) Lymphocytes % (Manual) Seg Neutrophils # Man Lymphocytes # (Manual) Creatinine Uric Acid Magnesium 6.00 H AST Lactate Dehydrogenase Laboratory Results - last 24 hr 11/16/18 11/17/18 11/17/18 20:02 12:00 18:04 Magnesium 5.70 H 4.80 H RPR Nonreactive 11/18/18 00:15 Magnesium 6.00 H RPR
[2018-11-18] MEDS: PRENATAL VITAMIN PO SCH (10:14)
[2018-11-18] MEDS: NORMODYNE PO SCH (10:14)
[2018-11-18 13:55] VITALS: BP 115/77
--- NOTE | 2018-11-18 14:24 | Discharge Summary ---
Providers - Providers Date of Admission: 11/16/18 18:41 Date of discharge: 11/18/18 Attending physician: CARLITOS GREEN Primary care physician: ASSOCIATE COUNSEL Hospitalization Reason for admission: PTL, N/V Condition: Good Hospital course: uneventful antepartum course Disposition: DC-01 TO HOME OR SELFCARE Core Measure Documentation - Palliative Care Palliative Care/ Comfort Measures: Not Applicable - Core Measures Any of the following diagnoses?: none Exam - Constitutional Vitals: Temp Pulse Resp BP Pulse Ox 97.4 F L 83 18 115/77 99 11/18/18 06:13 11/18/18 13:54 11/18/18 06:13 11/18/18 13:54 11/18/18 01:47 General appearance: Present: no acute distress, well-nourished - EENT Eyes: Present: PERRL ENT: hearing intact, clear oral mucosa - Neck Neck: Present: supple, normal ROM - Respiratory Respiratory effort: normal Respiratory: bilateral: CTA - Cardiovascular Heart Sounds: Present: S1 & S2. Absent: rub, click - Extremities Extremities: pulses symmetrical, No edema Peripheral Pulses: within normal limits - Abdominal General gastrointestinal: Present: soft, non-tender, non-distended, normal bowel sounds Female genitourinary: Present: normal - Integumentary Integumentary: Present: clear, warm, dry - Musculoskeletal Musculoskeletal: gait normal, strength equal bilaterally - Psychiatric Psychiatric: appropriate mood/affect, intact judgment & insight - Neurologic Neurologic: CNII-XII intact, moves all extremities - Additional findings Additional findings: Patient report mild occasional contractions since d/c of magnesium. She denies any LOF or VB. +FM. Patient reports continued BECKER, declines tylenol. She denies any visual disturbances, RUQ pain. DTRs 2+. VSSAF. Category 1 tracing. DWP need for her to f/u with neurologist for HAs, establish care with an OB provider. Pt verbalizes understanding. DWP labor and PIH precautions, FKCs. Pt understands to return for any increase in timing or intensity of contractions, VB, LOF, decreased FM, severe BECKER, visual disturbances, RUQ pain, severe n/v. Pt verbalizes understanding. Pt encouraged to call our office to make appt for 1hr gtt. Unable to be done here as inpt as she has received BMZ. Consult with Dr. Green who agrees with discharge POC. Plan Activity: no restrictions Diet: regular, low salt Follow up with: PRIMARY CARE, [Primary Care Provider] - 7 Days (Please call [phone] to schedule 1 hour glucose tolerance test. ) Prescriptions: Labetalol [Labetalol 100mg TAB] 100 mg PO BID #60 tablet
[2018-11-18] MEDS ORDERED: TUMS PO ONE (15:15)
== END 2018-11-18 15:49 | disposition home or self-care (01) ==
LOC: TRG 16:05 → LD 18:41
PROVIDERS: ADMIT Obstetrics & Gynecology; ATTEND Obstetrics & Gynecology
DX: O62.9 Abnormality of forces of labor, unspecified (principal); O21.0 Mild hyperemesis gravidarum; O16.3 Unspecified maternal hypertension, third trimester; O60.03 Preterm labor without delivery, third trimester; Z3A.34 34 weeks gestation of pregnancy; Z79.899 Other long term (current) drug therapy
CPT/HCPCS: 36415; 80307; 81001; 82565; 83615; 83735; 84450; 84460; 84550; 85007; 85025; 86592; 86706; 86762; 86803; 86850; 86900; 86901; 87116; 87806; 96361; 96365; 96366; 96368; 96372; 96375; 96376; G0378; J0290; J0702; J2405; J3475; J7120

== ENCOUNTER 2018-11-24 13:59 | Outpatient (CLI) | payer OTHER, MEDICAID ==
[2018-11-24] MEDS ORDERED: LACTATED RINGERS 1,000 ML ONE (14:06)
[2018-11-24] MEDS ORDERED: LACTATED RINGERS 500 ML IV ONE (14:09)
[2018-11-24] MEDS ORDERED: ZOFRAN IV ONE (14:10)
[2018-11-24 14:52] LABS: Bilirubin,Urine NEG (Negative); Blood,Urine NEG (Negative); Color,Urine Yellow (Yellow); Mucus,Urine FEW /HPF; Urobilinogen,Urine < 2.0 mg/dL (<2.0)
[2018-11-24 15:03] LABS: Amphetamine Screen,Urine PRESUMPTIVE NEGATIVE; Benzodiazepines Screen,Urine PRESUMPTIVE NEGATIVE; Cocaine Screen,Urine PRESUMPTIVE NEGATIVE; Methadone Screen,Urine PRESUMPTIVE NEGATIVE; Opiate Screen,Urine PRESUMPTIVE NEGATIVE
[2018-11-24 15:18] LABS: Cannabinoid Screen,Urine PRESUMPTIVE POSITIVE
[2018-11-24] MEDS: PEPCID IV SCH (17:59)
[2018-11-24] MEDS ORDERED: MORPHINE IV ONE ×2 (18:00→23:15)
[2018-11-24] MEDS ORDERED: BRETHINE SUB-Q ONE (18:00)
[2018-11-24] MEDS: D5LR 1,000 ML IV SCH (21:49)
[2018-11-25] MEDS: D5LR 1,000 ML IV SCH (04:29)
[2018-11-25] MEDS: PEPCID IV SCH (10:40)
[2018-11-25 14:00] VITALS: BP 139/88
[2018-11-25] MEDS ORDERED: ZOFRAN IV ONE (14:45)
--- NOTE | 2018-11-25 14:55 | Ultrasound Report ---
ULTRASOUND BIOPHYSICAL PROFILE: History: well being Technique: Transabdominal ultrasound with Doppler interrogation. 2 - breathing movements 2 - movements 2 - posture and tone 2 - Qualitative amniotic fluid volume 8 - TOTAL SCORE OF POSSIBLE 8 Heart Rate (bpm) 124
--- NOTE | 2018-11-25 15:13 | Ultrasound Report ---
OB ULTRASOUND History: well being. Technique: Transabdominal ultrasound with Doppler interrogation. Gestation: Single Position: Cephalic Amniotic Fluid: Normal ADRIENNE = 11.3 cm Placenta: Anterior, left lateral Placental Grade: 2 Heart Rate: 143 BPM NEUROANATOMY VISUALIZED: None ANATOMY VISUALIZED: Stomach Kidneys Bladder Diaphragm 4 Chamber Heart Heart 3 Vessel Cord Abd. Cord Insert SPINE VISUALIZED: Longitudinal Transverse The following are not demonstrated due to maternal body habitus or lie: Neuro anatomy. BPD: 8.2 cm = 32 w 6 d HC: 30.3 cm = 33 w 5 d AC: 29.2 cm = 33 w 1 d FL: 6.8 cm = 35 w 1 d HC/AC Ratio: 1.04 Cephalic Index: 80.5 Estimated Weight: 2270 grams Clinical age = 35 w 2 d EDC: 12/28/18 US Gest. Age = 33 w 5 d EDC: 01/08/19 IMPRESSION: Viable, single intrauterine as described.
== END 2018-11-25 15:45 | disposition home or self-care (01) ==
LOC: TRG 13:59 → LD 18:28 → TRG 11-25 15:45
PROVIDERS: ATTEND Obstetrics & Gynecology
DX: O60.03 Preterm labor without delivery, third trimester (principal); O21.2 Late vomiting of pregnancy; O62.9 Abnormality of forces of labor, unspecified; O10.913 Unspecified pre-existing hypertension complicating pregnancy, third trimester; O99.323 Drug use complicating pregnancy, third trimester; F12.90 Cannabis use, unspecified, uncomplicated; O99.333 Smoking (tobacco) complicating pregnancy, third trimester; F17.200 Nicotine dependence, unspecified, uncomplicated; Z3A.35 35 weeks gestation of pregnancy
CPT/HCPCS: 76805; 76819; 80307; 81001; 96361; 96365; 96366; 96372; 96374; 96375; J2270; J2405; J3105; J7120; J7121

== ENCOUNTER 2018-12-02 12:10 | Inpatient (IN) | payer MEDICAID, OTHER ==
[2018-12-02] MEDS ORDERED: PITOCin/NS 20 UNIT/1000ML DRIP 20,000 MILLIUNITS/1,000 ML BAG IV ONE (12:32)
[2018-12-02] MEDS ORDERED: SUBLIMAZE ONE (12:32)
[2018-12-02] MEDS ORDERED: LACTATED RINGERS 1,000 ML ONE (12:32)
[2018-12-02] MEDS ORDERED: ZOFRAN IV PRN ×2 (12:57→13:42)
[2018-12-02] MEDS ORDERED: STADOL IV PRN (12:57)
[2018-12-02] MEDS ORDERED: XYLOCAINE 2% INFILTRATI ONE (12:57)
[2018-12-02] MEDS ORDERED: SUBLIMAZE IV PRN (12:57)
[2018-12-02] MEDS ORDERED: BRETHINE IVP PRN (12:57)
[2018-12-02] MEDS ORDERED: BRETHINE SUB-Q PRN (12:57)
[2018-12-02] MEDS ORDERED: MINERAL OIL PO PRN (12:57)
[2018-12-02] MEDS ORDERED: PITOCin/NS 30 UNIT/500ML 30 UNITS/500 ML BAG IV SCH (13:00)
[2018-12-02] MEDS ORDERED: PITOCin/NS 20 UNIT/1000ML DRIP 20 UNITS/1,000 ML BAG IV SCH ×2 (13:00→14:00)
[2018-12-02] MEDS ORDERED: LACTATED RINGERS 1,000 ML IV SCH (13:00)
--- NOTE | 2018-12-02 13:01 | History and Physical Report ---
History of Present Illness Date of examination: 12/02/18 Date of admission: 12/02/18 12:16 Chief complaint: Labor History of present illness: Pt is a 33yo BF EDC 12/28/18; EGA 36 2/7 weeks presents to L&D complaining of RUC's q 3-4 mins. She did NOT receive care for this , but was admitted last month 11/16/18 for PTL and received magnesium sulfate and steroids. Past History Past Medical History: hypertension Past Surgical History: no surgical history SYSTEMS SPECIALIST History: fibroids Social history: no significant social history, single - Obstetrical History Expected Date of Delivery: 12/28/18 Actual Gestation: 36 Week(s) 3 Day(s) : 3 Medications and Allergies Allergies Allergy/AdvReac Type Severity Reaction Status Date / Time No Known Allergies Allergy Verified 08/27/18 23:32 Home Medications Medication Instructions Recorded Confirmed Last Taken Type Methyldopa [Aldomet] 250 mg PO BID 08/28/18 11/17/18 11/10/18 10:00 History 250 Labetalol [Labetalol 100mg TAB] 100 mg PO BID #60 tablet 11/18/18 Unknown Rx Review of Systems All systems: negative - Vital Signs Vital signs: Vital Signs Pulse BP 73 138/86 12/02/18 12:37 12/02/18 12:37 Temp Pulse Resp BP Pulse Ox 73 138/86 12/02/18 12:37 12/02/18 12:37 - Physical Exam Breasts: Positive: deferred Cardiovascular: Regular rate Lungs: Positive: Clear to auscultation Abdomen: Positive: normal appearance Genitourinary (Female): Positive: normal external genitalia Vagina: Positive: normal moisture Uterus: Positive: enlarged Extremities: Positive: normal - Obstetrical FHR: category 1 Uterine Contraction Monitor Mode: External Cervical Dilatation: 8 Cervical Effacement Percentage: 100 station: -2 Uterine Contraction Pattern: Regular Uterine Tone Measurement Phase: Contraction Uterine Contraction Intensity: Strong/Firm Results Result Diagrams: 12/03/18 02:23 All other labs normal. Assessment and Plan - Patient Problems (1) 36 weeks gestation of Onset Date: 12/02/18 Current Visit: Yes Status: Acute Plan to address problem: A: IUP @ 36 2/7 weeks in labor labor No care Uterine fibroids P: Admit to L&D for expectant vaginal delivery (2) labor in third trimester Onset Date: 12/02/18 Current Visit: No Status: Acute Qualifiers: Fetus number: single or unspecified fetus (3) Chronic hypertension Onset Date: 12/02/18 Current Visit: No Status: Chronic (4) Fibroids Onset Date: 12/02/18 Current Visit: No Status: Chronic Qualifiers: Uterine leiomyoma location: intramural and subserous Qualified Code(s): D25.1 - Intramural leiomyoma of uterus; D25.2 - Subserosal leiomyoma of uterus
--- NOTE | 2018-12-02 13:38 | Procedure Note ---
OB Delivery Note - Delivery Date of Delivery: 12/02/18 Surgeon: KWADWO ESCALANTE Estimated blood loss: 200cc - Vaginal Delivery presentation: vertex Delivery position: OA Intrapartum events: no care, labor-<37 weeks, precipitous labor- <3hr Delivery induction: none Delivery augmentation: rupture of membranes Delivery monitor: external FHT, external uterine Route of delivery: Delivery placenta: spontaneous Delivery cord: nuchal cord, 3 umbilical vessels Episiotomy: none Delivery laceration: 2nd degree (perineal) Delivery repair: vicryl Anesthesia: none Delivery comments: Infant delivered OA and placed on Mom's chest for [id number] bonding and delayed cord clamping - A at 1 minute: 8 at 5 minutes: 9 Infant Gender: Female (2400gms)
[2018-12-02] MEDS ORDERED: TYLENOL PO PRN (13:42)
[2018-12-02] MEDS ORDERED: LANSINOH TP PRN (13:42)
[2018-12-02] MEDS ORDERED: MILK OF MAGNESIA PO PRN (13:42)
[2018-12-02] MEDS ORDERED: PHENERGAN PR PRN (13:42)
[2018-12-02] MEDS ORDERED: TUCKS PAD TP PRN (13:42)
[2018-12-02] MEDS ORDERED: PHENERGAN PO PRN (13:42)
[2018-12-02] MEDS ORDERED: DULCOLAX PR PRN (13:42)
[2018-12-02] MEDS ORDERED: BENADRYL PO PRN (13:42)
[2018-12-02] MEDS ORDERED: SODIUM CHLORIDE FLUSH SYRINGE 10 ML IV NR (14:00)
[2018-12-02 14:43] LABS: Hematocrit 35.5 % (30.3-42.9); Hemoglobin 11.7 gm/dl (10.1-14.3); Mean Corpuscular HGB Conc 33 % (30-34); Mean Corpuscular Volume 87 fl (79-97); Platelet Count 276 K/mm3 (140-440); Red Blood Count 4.06 M/mm3 (3.65-5.03); Red Cell Distribution Width 16.2 % (13.2-15.2)
[2018-12-02] MEDS ORDERED: ALDOMET PO SCH ×2 (15:00)
[2018-12-02] MEDS: NORCO 5/325 PO PRN (16:53)
[2018-12-02] MEDS: ALDOMET PO SCH (18:13)
[2018-12-02] MEDS: IBUPROFEN PO SCH (20:21)
[2018-12-02] MEDS: FEOSOL PO SCH (23:13)
[2018-12-02] MEDS: COLACE PO SCH (23:14)
[2018-12-03 00:58] LABS: Amphetamine Screen,Urine PRESUMPTIVE NEGATIVE; Benzodiazepines Screen,Urine PRESUMPTIVE NEGATIVE; Cocaine Screen,Urine PRESUMPTIVE NEGATIVE; Methadone Screen,Urine PRESUMPTIVE NEGATIVE; Opiate Screen,Urine PRESUMPTIVE NEGATIVE
[2018-12-03 01:10] LABS: Cannabinoid Screen,Urine PRESUMPTIVE POSITIVE
[2018-12-03 01:20] LABS: Bilirubin,Urine NEG (Negative); Blood,Urine LG (Negative); Color,Urine Yellow (Yellow); Mucus,Urine 2+ /HPF; Urobilinogen,Urine < 2.0 mg/dL (<2.0)
[2018-12-03 01:27] LABS: RBC,Urine > 182.0 /HPF (0.0-6.0)
[2018-12-03] MEDS: IBUPROFEN PO SCH ×4 (02:23→22:45)
[2018-12-03] MEDS: NORCO 5/325 PO PRN ×4 (02:24→22:46)
[2018-12-03 02:56] LABS: Hematocrit 25.5 % (30.3-42.9); Hemoglobin 8.4 gm/dl (10.1-14.3)
--- NOTE | 2018-12-03 10:35 | Progress Note ---
Assessment and Plan - Patient Problems (1) 36 weeks gestation of Onset Date: 12/02/18 Current Visit: Yes Status: Resolved (2) labor in third trimester Onset Date: 12/02/18 Current Visit: No Status: Resolved Qualifiers: Fetus number: single or unspecified fetus (3) Chronic hypertension Onset Date: 12/02/18 Current Visit: No Status: Chronic (4) Fibroids Onset Date: 12/02/18 Current Visit: No Status: Chronic Qualifiers: Uterine leiomyoma location: intramural and subserous Qualified Code(s): D25.1 - Intramural leiomyoma of uterus; D25.2 - Subserosal leiomyoma of uterus (5) (normal spontaneous vaginal delivery) Onset Date: 12/03/18 Current Visit: Yes Status: Resolved Plan to address problem: A: S/P - PPD #1 Doing well Asymptomatic anemia - stable P: May go home tomorrow. (6) Acute blood loss anemia Onset Date: 12/03/18 Current Visit: Yes Status: Resolved Subjective - Subjective Date of service: 12/03/18 Principal diagnosis: s/p - PPD #1 Interval history: Pt is feeling well without complaints. Bleeding improved. Patient reports: appetite normal, voiding normally, pain well controlled, flatus, ambulating normally, no dizzy ambulation, no nauseated [place]: doing well, bottle feeding Objective - Vital Signs Latest vital signs: Vital Signs Temp Pulse Resp BP BP Pulse Ox 12/03/18 07:23 98.3 F 71 18 117/67 100 12/03/18 02:24 18 12/03/18 02:23 18 12/03/18 00:27 115/76 12/03/18 00:25 98.2 F 55 L 20 115/76 100 12/02/18 20:21 18 12/02/18 18:13 56 L 118/56 12/02/18 16:08 98 F 56 L 18 118/59 98 12/02/18 14:49 70 163/83 12/02/18 14:46 60 136/71 12/02/18 14:45 98.0 F 12/02/18 14:34 57 L 116/59 12/02/18 14:31 74 152/90 12/02/18 14:28 61 146/80 12/02/18 14:11 81 165/86 12/02/18 13:56 64 140/78 12/02/18 13:53 77 150/83 12/02/18 13:46 78 182/84 12/02/18 13:40 98 F 12/02/18 12:37 73 138/86 12/02/18 12:30 98.1 F Intake and Output 12/02/18 12/03/18 12/03/18 22:59 06:59 14:59 Intake Total 240 Output Total 400 Balance -400 240 Intake: Oral 240 Output: Urine 400 Other: Total, Intake Amount 240 Voiding Method Toilet # Voids Void 1 Estimated Blood Loss 200 - Exam Breasts: Present: deferred Abdomen: Present: normal appearance, soft Uterus: Present: normal, firm, fundal height below umbilicus Extremities: Present: normal - Labs Labs: Abnormal lab results 12/02/18 12/02/18 12/03/18 Range/Units 14:30 21:35 02:23 Hgb 8.4 L D (10.1-14.3) gm/dl Hct 25.5 L D (30.3-42.9) % RDW 16.2 H (13.2-15.2) % Urine WBC (Auto) 52.0 H (0.0-6.0) /HPF Laboratory Tests 12/02/18 12/02/18 12/02/18 14:30 16:04 16:04 WBC 7.9 RBC 4.06 Hgb 11.7 Hct 35.5 MCV 87 MCH 29 MCHC 33 RDW 16.2 H Plt Count 276 Urine Color Urine Turbidity Urine pH Ur Specific [place] Urine Protein Urine Glucose (UA) Urine Ketones Urine Blood Urine Nitrite Urine Bilirubin Urine Urobilinogen Ur Leukocyte Esterase Urine WBC (Auto) Urine RBC (Auto) U Epithel Cells (Auto) Urine Mucus Urine Opiates Screen Urine Methadone Screen Ur Barbiturates Screen Ur Phencyclidine Scrn Ur Amphetamines Screen U Benzodiazepines Scrn Urine Cocaine Screen U Marijuana (THC) Screen Drugs of Abuse Note HIV 1&2 Antibody Rapid Non react HIV P24 Antigen Non react Blood Type O POSITIVE Antibody Screen Negative 12/02/18 12/02/18 12/02/18 21:35 21:35 21:48 WBC RBC Hgb Hct MCV MCH MCHC RDW Plt Count Urine Color Yellow Urine Turbidity Slightly-cloudy Urine pH 7.0 Ur Specific [place] 1.020 Urine Protein 30 mg/dl Urine Glucose (UA) Neg Urine Ketones 80 Urine Blood Lg Urine Nitrite Neg Urine Bilirubin Neg Urine Urobilinogen < 2.0 Ur Leukocyte Esterase Sm Urine WBC (Auto) 52.0 H Urine RBC (Auto) > 182.0 U Epithel Cells (Auto) 1.0 Urine Mucus 2+ Urine Opiates Screen Presumptive negative Urine Methadone Screen Presumptive negative Ur Barbiturates Screen Presumptive negative Ur Phencyclidine Scrn Presumptive negative Ur Amphetamines Screen Presumptive negative U Benzodiazepines Scrn Presumptive negative Urine Cocaine Screen Presumptive negative U Marijuana (THC) Screen Presumptive positive Drugs of Abuse Note Disclamer HIV 1&2 Antibody Rapid Non react HIV P24 Antigen Non react Blood Type Antibody Screen 12/03/18 02:23 WBC RBC Hgb 8.4 L D Hct 25.5 L D MCV MCH MCHC RDW Plt Count Urine Color Urine Turbidity Urine pH Ur Specific [place] Urine Protein Urine Glucose (UA) Urine Ketones Urine Blood Urine Nitrite Urine Bilirubin Urine Urobilinogen Ur Leukocyte Esterase Urine WBC (Auto) Urine RBC (Auto) U Epithel Cells (Auto) Urine Mucus Urine Opiates Screen Urine Methadone Screen Ur Barbiturates Screen Ur Phencyclidine Scrn Ur Amphetamines Screen U Benzodiazepines Scrn Urine Cocaine Screen U Marijuana (THC) Screen Drugs of Abuse Note HIV 1&2 Antibody Rapid HIV P24 Antigen Blood Type Antibody Screen
--- NOTE | 2018-12-03 10:40 | Discharge Summary ---
Providers - Providers Date of Admission: 12/02/18 12:16 Date of discharge: 12/04/18 Attending physician: KWADWO ESCALANTE 12/03/18 07:42 Consult to Case Management [CONS] Routine Services Needed at Discharge: Edger Machine Helper Notified:: called Phone number called:: [phone] Was contact made?: No If yes, spoke with:: no answer Time called:: 07:43 Comment:: line busy Additional Physician Instructions: Thc - mom positive Primary care physician: C[employer] Hospitalization Reason for admission: active labor, IUP - , labor Delivery: Episiotomy: none Laceration: 2nd degree (perineal) Incision: normal Other procedures: none complications: none Discharge diagnosis: delivery Jones baby: female Hospital course: Unremarkable. Condition at discharge: Good Disposition: DC-01 TO HOME OR SELFCARE - Discharge Diagnoses (1) 36 weeks gestation of Status: Resolved (2) labor in third trimester Status: Resolved Qualifiers: Fetus number: single or unspecified fetus (3) Chronic hypertension Status: Chronic (4) Fibroids Status: Chronic Qualifiers: Uterine leiomyoma location: intramural and subserous Qualified Code(s): D25.1 - Intramural leiomyoma of uterus; D25.2 - Subserosal leiomyoma of uterus (5) (normal spontaneous vaginal delivery) Status: Resolved (6) Acute blood loss anemia Status: Resolved Plan - Discharge Medications Prescriptions: Methyldopa [Aldomet] 250 mg PO Q8HR #90 tablet Ferrous Sulfate [Feosol 325 MG tab] 325 mg PO BID #60 tablet Ibuprofen [Motrin 600 MG tab] 600 mg PO Q6H #30 tablet Vit-Fe Fumar-FA [ Vitamin] 1 each PO QDAY #30 tablet - Provider Discharge Summary Activity: routine, no sex for 6 weeks, no heavy lifting 4 weeks, no strenuous exercise Diet: routine Instructions: routine Additional instructions: [] Smoking cessation referral if applicable(refer to patient education folder for contact #) [] Refer to [employer] Booklet Call your doctor immediately for: * Fever > 100.5 * Heavy vaginal bleeding ( >1 pad per hour) * Severe persistent headache * Shortness of breath * Reddened, hot, painful area to leg or breast * Drainage or odor from incision. * Keep incision clean and dry at all times and follow doctor's instructions regarding bathing/showering - Follow up plan Follow up: PRIMARY CARE, [Primary Care Provider] - 6 Weeks KWADWO ESCALANTE MD [Staff Physician] - 6 Weeks
[2018-12-03] MEDS: COLACE PO SCH ×2 (11:09→22:45)
[2018-12-03] MEDS: FEOSOL PO SCH ×2 (11:09→22:45)
[2018-12-03] MEDS: PRENATAL VITAMIN PO SCH (11:10)
[2018-12-03] MEDS ORDERED: M-M-R II VACCINE SUB-Q ONE (13:42)
[2018-12-03] MEDS ORDERED: BOOSTRIX IM ONE (13:42)
[2018-12-03] MEDS: ALDOMET PO SCH (17:11)
[2018-12-04] MEDS: ALDOMET PO SCH ×3 (01:31→14:43)
[2018-12-04] MEDS: COLACE PO SCH (09:51)
[2018-12-04] MEDS: IBUPROFEN PO SCH ×2 (09:51→14:43)
[2018-12-04] MEDS: PRENATAL VITAMIN PO SCH (09:52)
[2018-12-04] MEDS: FEOSOL PO SCH (09:53)
[2018-12-04] MEDS: NORCO 5/325 PO PRN (09:54)
[2018-12-04 17:00] VITALS: BP 141/83
== END 2018-12-04 20:00 | disposition home or self-care (01) | DRG 805 ==
LOC: TRG 12:10 → LD 12:13 → TRG 12:14 → LD 12:16 → OB 15:59
PROVIDERS: ADMIT Obstetrics & Gynecology; ATTEND Obstetrics & Gynecology
PROC: 10E0XZZ Delivery of Products of Conception, External Approach (ICD-10-PCS; principal; 2018-12-02)
PROC: 0KQM0ZZ Repair Perineum Muscle, Open Approach (ICD-10-PCS; 2018-12-02)
PROC: 3E0234Z Introduction of Serum, Toxoid and Vaccine into Muscle, Percutaneous Approach (ICD-10-PCS; 2018-12-03)
DX: O34.13 Maternal care for benign tumor of corpus uteri, third trimester (principal); O60.13X0 Preterm labor second trimester with preterm delivery third trimester, not applicable or unspecified; Z37.0 Single live birth; D62 Acute posthemorrhagic anemia; O16.4 Unspecified maternal hypertension, complicating childbirth; O62.3 Precipitate labor; O69.81X0 Labor and delivery complicated by cord around neck, without compression, not applicable or unspecified; D25.1 Intramural leiomyoma of uterus; D25.0 Submucous leiomyoma of uterus; Z3A.36 36 weeks gestation of pregnancy; Z23 Encounter for immunization; O70.1 Second degree perineal laceration during delivery; O99.02 Anemia complicating childbirth
CPT/HCPCS: 36415; 80307; 81001; 85014; 85018; 85027; 86592; 86762; 86850; 86900; 86901; 87086; 87517; 87806; G0378; J2405; J2590; J3010; J7120

== ENCOUNTER 2018-12-06 08:58 | Inpatient (IN) | payer OTHER ==
[2018-12-06] MEDS ORDERED: MAGNESIUM SULFATE 2GM/50ML 2 GM/50 ML BAG IV ONE (09:37)
[2018-12-06] MEDS ORDERED: NORMODYNE IV ONE ×2 (09:38→12:21)
[2018-12-06] MEDS ORDERED: ZOFRAN IV ONE (09:47)
[2018-12-06] MEDS ORDERED: MORPHINE IV ONE (09:47)
--- NOTE | 2018-12-06 09:55 | Emergency Department Report ---
ED General Adult HPI - General Chief complaint: Abdominal Pain Stated complaint: ABD PAIN Time Seen by Provider: 12/06/18 09:29 Source: patient Mode of arrival: Ambulatory Limitations: No Limitations - History of Present Illness Initial comments: This is a 33 year old female who is on December 03. She has a history of anemia and chronic hypertension. She also has large uterine leiomyoma. He states that she was instructed to increase her blood pressure medicine on discharge. She states that she has a prescription at [facility] which she has not pic ked up yet. She complains of chest pain and abdominal pain since yesterday. The onset of both was near a simultaneous. She states that the chest pain began early in the morning and the abdominal pain thereafter. They both hurt independently; there is no radiation. She underwent a spontaneous vaginal delivery with a episiotomy. The patient denies a history of prior pulmonary embolism or DVT. She did not receive planned care for the previous ; she presents to this facility several times and her third trimester. 12/03/2018 discharge summary: Hospitalization Reason for admission: active labor, IUP - , labor Delivery: Episiotomy: none Laceration: 2nd degree (perineal) Incision: normal Other procedures: none complications: none Discharge diagnosis: delivery [place] baby: female Hospital course: Unremarkable. Condition at discharge: Good Disposition: DC-01 TO HOME OR SELFCARE - Discharge Diagnoses (1) 36 weeks gestation of Status: Resolved (2) labor in third trimester Status: Resolved Qualifiers: Fetus number: single or unspecified fetus (3) Chronic hypertension Status: Chronic (4) Fibroids Status: Chronic Qualifiers: Uterine leiomyoma location: intramural and subserous Qualified Code(s): D25.1 - Intramural leiomyoma of uterus; D25.2 - Subserosal leiomyoma of uterus (5) (normal spontaneous vaginal delivery) Status: Resolved (6) Acute blood loss anemia Status: Resolved Plan - Discharge Medications Prescriptions: Methyldopa [Aldomet] 250 mg PO Q8HR #90 tablet Ferrous Sulfate [Feosol 325 MG tab] 325 mg PO BID #60 tablet Ibuprofen [Motrin 600 MG tab] 600 mg PO Q6H #30 tablet Vit-Fe Fumar-FA [ Vitamin] 1 each PO QDAY #30 tablet -: hour(s) Location: chest, abdomen Radiation: non-radiation Quality: aching Consistency: constant Improves with: none Worsens with: none Associated Symptoms: shortness of breath Treatments Prior to Arrival: none - Related Data Home Medications Medication Instructions Recorded Confirmed Last Taken Methyldopa [Aldomet] 250 mg PO BID 08/28/18 12/04/18 11/10/18 10:00 250 Previous Rx's Medication Instructions Recorded Last Taken Type Labetalol [Labetalol 100mg TAB] 100 mg PO BID #60 tablet 11/18/18 Unknown Rx Ferrous Sulfate [Feosol 325 MG tab] 325 mg PO BID #60 tablet 12/03/18 Unknown Rx Ibuprofen [Motrin 600 MG tab] 600 mg PO Q6H #30 tablet 12/03/18 Unknown Rx Methyldopa [Aldomet] 250 mg PO Q8HR #90 tablet 12/03/18 Unknown Rx Vit-Fe Fumar-FA [ 1 each PO QDAY #30 tablet 12/03/18 Unknown Rx Vitamin] Allergies Allergy/AdvReac Type Severity Reaction Status Date / Time No Known Allergies Allergy Verified 08/27/18 23:32 ED Review of Systems ROS: Stated complaint: ABD PAIN Other details as noted in HPI Constitutional: denies: chills, fever Eyes: denies: eye pain, eye discharge, vision change ENT: denies: ear pain, throat pain Respiratory: shortness of breath. denies: cough, wheezing Cardiovascular: chest pain. denies: palpitations Endocrine: no symptoms reported Gastrointestinal: abdominal pain. denies: nausea, diarrhea Genitourinary: other (no vaginal bleeding ). denies: urgency, dysuria, discharge Musculoskeletal: denies: back pain, joint swelling, arthralgia Skin: denies: rash, lesions Neurological: denies: headache, weakness, paresthesias Psychiatric: denies: anxiety, depression Hematological/Lymphatic: denies: easy bleeding, easy bruising ED Past Medical Hx - Past Medical History Hx Hypertension: Yes Hx Congestive Heart Failure: No Hx Diabetes: No Hx Deep Vein Thrombosis: No Hx Renal Disease: No Hx Sickle Cell Disease: No Hx Seizures: No Hx Asthma: No Hx COPD: No Hx HIV: No Additional medical history: Fibroids - Surgical History Past Surgical History?: No - Social History Smoking Status: Never Smoker Substance Use Type: None - Medications Home Medications: Home Medications Medication Instructions Recorded Confirmed Last Taken Type Methyldopa [Aldomet] 250 mg PO BID 08/28/18 12/04/18 11/10/18 10:00 History 250 Labetalol [Labetalol 100mg TAB] 100 mg PO BID #60 tablet 11/18/18 12/04/18 Unknown Rx Ferrous Sulfate [Feosol 325 MG tab] 325 mg PO BID #60 tablet 12/03/18 Unknown Rx Ibuprofen [Motrin 600 MG tab] 600 mg PO Q6H #30 tablet 12/03/18 Unknown Rx Methyldopa [Aldomet] 250 mg PO Q8HR #90 tablet 12/03/18 Unknown Rx Vit-Fe Fumar-FA [ 1 each PO QDAY #30 tablet 12/03/18 Unknown Rx Vitamin] ED Physical Exam - General Limitations: No Limitations General appearance: alert, other (appears uncomfortable with normal work of breathing) - Head Head exam: Present: atraumatic, normocephalic - Eye Eye exam: Present: normal appearance. Absent: scleral icterus - ENT ENT exam: Present: mucous membranes moist - Neck Neck exam: Present: normal inspection. Absent: meningismus - Respiratory Respiratory exam: Present: normal lung sounds bilaterally. Absent: respiratory distress - Cardiovascular Cardiovascular Exam: Present: regular rate, normal rhythm. Absent: systolic murmur, diastolic murmur, rubs, gallop - GI/Abdominal GI/Abdominal exam: Present: soft, tenderness (some tenderness over the uterus but not generally in the abdomen), normal bowel sounds, mass (very large leiomyoma evident, uterus is near term in size still). Absent: guarding, rebound, rigid, pulsatile mass, hernia - Extremities Exam Extremities exam: Present: normal inspection, normal capillary refill. Absent: pedal edema, joint swelling, calf tenderness - Back Exam Back exam: Present: normal inspection - Neurological Exam Neurological exam: Present: alert, oriented X3, CN II-XII intact. Absent: motor sensory deficit - Psychiatric Psychiatric exam: Present: normal affect, normal mood - Skin Skin exam: Present: warm, dry, intact, normal color. Absent: rash ED Course Vital Signs 12/06/18 12/06/18 12/06/18 09:15 10:04 11:24 Temperature 98 F Pulse Rate 55 L 62 88 Respiratory 16 16 Rate Blood Pressure 194/105 190/97 Blood Pressure 173/83 [Left] O2 Sat by Pulse 100 100 Oximetry 07/07/19 07/07/19 12:21 12:30 Temperature Pulse Rate 57 L Respiratory 16 Rate Blood Pressure 161/87 Blood Pressure 163/87 [Left] O2 Sat by Pulse 100 Oximetry - Reevaluation(s) Reevaluation #1: Assessment with Dr. Love. He is aware of the findings. He will provide further care and stabilization on L&D. 12/06/18 14:15 ED Medical Decision Making - Lab Data Result diagrams: 12/06/18 09:42 12/06/18 09:42 Laboratory Results - last 24 hr 12/06/18 12/06/18 12/06/18 09:21 09:38 09:42 WBC 7.0 RBC 3.57 L Hgb 10.2 Hct 30.3 MCV 85 MCH 29 MCHC 34 RDW 16.4 H Plt Count 305 PT INR APTT Sodium Potassium Chloride Carbon Dioxide Anion Gap BUN Creatinine Estimated GFR BUN/Creatinine Ratio Glucose Calcium Magnesium Total Bilirubin Direct Bilirubin Indirect Bilirubin AST ALT Alkaline Phosphatase Total Creatine Kinase CK-MB (CK-2) CK-MB (CK-2) Rel Index Troponin T NT-Pro-B Natriuret Pep Total Protein Albumin Albumin/Globulin Ratio Lipase Urine Color Colorless Urine Turbidity Clear Urine pH 8.0 H Ur Specific [place] 1.004 Urine Protein <15 mg/dl Urine Glucose (UA) Neg Urine Ketones Tr Urine Blood Sm Urine Nitrite Neg Urine Bilirubin Neg Urine Urobilinogen < 2.0 Ur Leukocyte Esterase Mod Urine WBC (Auto) 3.0 Urine RBC (Auto) 10.0 Blood Type O POSITIVE 12/06/18 12/06/18 12/06/18 09:42 09:42 09:42 WBC RBC Hgb Hct MCV MCH MCHC RDW Plt Count PT 12.8 INR 0.99 APTT 27.4 Sodium 141 Potassium 3.4 L Chloride 105.4 Carbon Dioxide 24 Anion Gap 15 BUN 5 L Creatinine 0.4 L Estimated GFR > 60 BUN/Creatinine Ratio 13 Glucose 92 Calcium 8.9 Magnesium 2.00 Total Bilirubin 0.50 Direct Bilirubin < 0.2 Indirect Bilirubin 0.3 AST 109 H ALT 120 H Alkaline Phosphatase 223 H Total Creatine Kinase 84 CK-MB (CK-2) 1.1 CK-MB (CK-2) Rel Index 1.3 Troponin T < 0.010 NT-Pro-B Natriuret Pep 1014 H Total Protein 6.6 Albumin 3.4 L Albumin/Globulin Ratio 1.1 Lipase 11 L Urine Color Urine Turbidity Urine pH Ur Specific [place] Urine Protein Urine Glucose (UA) Urine Ketones Urine Blood Urine Nitrite Urine Bilirubin Urine Urobilinogen Ur Leukocyte Esterase Urine WBC (Auto) Urine RBC (Auto) Blood Type Laboratory Results - last 24 hr 12/06/18 12/06/18 12/06/18 09:21 09:38 09:42 WBC 7.0 RBC 3.57 L Hgb 10.2 Hct 30.3 MCV 85 MCH 29 MCHC 34 RDW 16.4 H Plt Count 305 Add Manual Diff Complete Total Counted 100 Seg Neuts % (Manual) 69.0 Band Neutrophils % 0 Lymphocytes % (Manual) 19.0 Reactive Lymphs % (Man) 1.0 Monocytes % (Manual) 8.0 H Eosinophils % (Manual) 0 Basophils % (Manual) 2.0 H Metamyelocytes % 0 Myelocytes % 1.0 Promyelocytes % 0 Blast Cells % 0 Nucleated RBC % Not Reportable Seg Neutrophils # Man 4.8 Band Neutrophils # 0.0 Lymphocytes # (Manual) 1.3 Abs React Lymphs (Man) 0.1 Monocytes # (Manual) 0.6 Eosinophils # (Manual) 0.0 Basophils # (Manual) 0.1 Metamyelocytes # 0.0 Myelocytes # 0.1 Promyelocytes # 0.0 Blast Cells # 0.0 WBC Morphology Not Reportable Hypersegmented Neuts Not Reportable Hyposegmented Neuts Not Reportable Hypogranular Neuts Not Reportable Smudge Cells Not Reportable Toxic Granulation Not Reportable Toxic Vacuolation Not Reportable Dohle Bodies Not Reportable Pelger-Huet Anomaly Not Reportable Myriam Rods Not Reportable Platelet Estimate Consistent w auto Clumped Platelets Not Reportable Plt Clumps, EDTA Not Reportable Large Platelets Not Reportable Giant Platelets Rare Platelet Satelliting Not Reportable Plt Morphology Comment Not Reportable RBC Morphology Not Reportable Dimorphic RBCs Not Reportable Polychromasia Not Reportable Hypochromasia Not Reportable Poikilocytosis Not Reportable Anisocytosis Not Reportable Microcytosis Not Reportable Macrocytosis Few Spherocytes Not Reportable Pappenheimer Bodies Not Reportable Sickle Cells Not Reportable Target Cells Not Reportable Tear Drop Cells Not Reportable Ovalocytes Not Reportable Helmet Cells Not Reportable Hernández-[place] Bodies Not Reportable [place] Rings Not Reportable Peck Cells Not Reportable Bite Cells Not Reportable Crenated Cell Not Reportable Elliptocytes Not Reportable Acanthocytes (Spur) Not Reportable Rouleaux Not Reportable Hemoglobin C Crystals Not Reportable Schistocytes Not Reportable Malaria parasites Not Reportable Milo Bodies Not Reportable Hem Pathologist Commnt No PT INR APTT Sodium Potassium Chloride Carbon Dioxide Anion Gap BUN Creatinine Estimated GFR BUN/Creatinine Ratio Glucose Calcium Magnesium Total Bilirubin Direct Bilirubin Indirect Bilirubin AST ALT Alkaline Phosphatase Total Creatine Kinase CK-MB (CK-2) CK-MB (CK-2) Rel Index Troponin T NT-Pro-B Natriuret Pep Total Protein Albumin Albumin/Globulin Ratio Lipase Urine Color Colorless Urine Turbidity Clear Urine pH 8.0 H Ur Specific [place] 1.004 Urine Protein <15 mg/dl Urine Glucose (UA) Neg Urine Ketones Tr Urine Blood Sm Urine Nitrite Neg Urine Bilirubin Neg Urine Urobilinogen < 2.0 Ur Leukocyte Esterase Mod Urine WBC (Auto) 3.0 Urine RBC (Auto) 10.0 Blood Type O POSITIVE Antibody Screen Negative 12/06/18 12/06/18 12/06/18 09:42 09:42 09:42 WBC RBC Hgb Hct MCV MCH MCHC RDW Plt Count Add Manual Diff Total Counted Seg Neuts % (Manual) Band Neutrophils % Lymphocytes % (Manual) Reactive Lymphs % (Man) Monocytes % (Manual) Eosinophils % (Manual) Basophils % (Manual) Metamyelocytes % Myelocytes % Promyelocytes % Blast Cells % Nucleated RBC % Seg Neutrophils # Man Band Neutrophils # Lymphocytes # (Manual) Abs React Lymphs (Man) Monocytes # (Manual) Eosinophils # (Manual) Basophils # (Manual) Metamyelocytes # Myelocytes # Promyelocytes # Blast Cells # WBC Morphology Hypersegmented Neuts Hyposegmented Neuts Hypogranular Neuts Smudge Cells Toxic Granulation Toxic Vacuolation Dohle Bodies Pelger-Huet Anomaly Myriam Rods Platelet Estimate Clumped Platelets Plt Clumps, EDTA Large Platelets Giant Platelets Platelet Satelliting Plt Morphology Comment RBC Morphology Dimorphic RBCs Polychromasia Hypochromasia Poikilocytosis Anisocytosis Microcytosis Macrocytosis Spherocytes Pappenheimer Bodies Sickle Cells Target Cells Tear Drop Cells Ovalocytes Helmet Cells Hernández-[place] Bodies [place] Rings Joshua Cells Bite Cells Crenated Cell Elliptocytes Acanthocytes (Spur) Rouleaux Hemoglobin C Crystals Schistocytes Malaria parasites Milo Bodies Hem Pathologist Commnt PT 12.8 INR 0.99 APTT 27.4 Sodium 141 Potassium 3.4 L Chloride 105.4 Carbon Dioxide 24 Anion Gap 15 BUN 5 L Creatinine 0.4 L Estimated GFR > 60 BUN/Creatinine Ratio 13 Glucose 92 Calcium 8.9 Magnesium 2.00 Total Bilirubin 0.50 Direct Bilirubin < 0.2 Indirect Bilirubin 0.3 AST 109 H ALT 120 H Alkaline Phosphatase 223 H Total Creatine Kinase 84 CK-MB (CK-2) 1.1 CK-MB (CK-2) Rel Index 1.3 Troponin T < 0.010 NT-Pro-B Natriuret Pep 1014 H Total Protein 6.6 Albumin 3.4 L Albumin/Globulin Ratio 1.1 Lipase 11 L Urine Color Urine Turbidity Urine pH Ur Specific [place] Urine Protein Urine Glucose (UA) Urine Ketones Urine Blood Urine Nitrite Urine Bilirubin Urine Urobilinogen Ur Leukocyte Esterase Urine WBC (Auto) Urine RBC (Auto) Blood Type Antibody Screen - EKG Data -: EKG Interpreted by Wi EKG shows normal: sinus rhythm, axis, intervals, QRS complexes, ST-T waves Rate: bradycardia - EKG Data Interpretation: no acute changes - Radiology Data Radiology results: report reviewed IMPRESSION: 1. Negative for PTE. Clear lungs. 2. Large uterus with several internal masses and calcifications likely representing fibroid disease. No acute hemorrhage or fluid collection identified. Critical Care Time: Yes Critical care time in (mins) excluding proc time.: 85 Critical care attestation.: If time is entered above; I have spent that time in minutes in the direct care of this critically ill patient, excluding procedure time. ED Disposition Clinical Impression: Pre-eclampsia, Disposition: -09 OP ADMIT IP TO THIS HOSP Is pt being admited?: Yes Does the pt Need Aspirin: Yes Condition: Stable Instructions: Abdominal Pain (ED), Hypertension (ED) Referrals: RHONDA BARNHART MD [Primary Care Provider] - 3-5 Days Time of Disposition: 14:16
[2018-12-06 10:10] LABS: Hematocrit 30.3 % (30.3-42.9); Hemoglobin 10.2 gm/dl (10.1-14.3); Mean Corpuscular HGB Conc 34 % (30-34); Mean Corpuscular Volume 85 fl (79-97); Platelet Count 305 K/mm3 (140-440); Red Blood Count 3.57 M/mm3 (3.65-5.03); Red Cell Distribution Width 16.4 % (13.2-15.2)
[2018-12-06 10:22] LABS: Bilirubin,Urine NEG (Negative); Blood,Urine SM (Negative); Color,Urine Colorless (Yellow); Protein,Urine <15 mg/dL mg/dL (Negative); Urobilinogen,Urine < 2.0 mg/dL (<2.0)
[2018-12-06 10:32] LABS: Creatine Kinase MB 1.1 ng/mL (0.0-4.0)
[2018-12-06 10:34] LABS: Alanine Aminotransferase 120 units/L (7-56); Albumin 3.4 g/dL (3.9-5); BUN/Creatinine Ratio 13; Blood Urea Nitrogen 5 mg/dL (7-17); Calcium 8.9 mg/dL (8.4-10.2); Hemolysis Index 0
[2018-12-06 10:35] LABS: Bilirubin,Direct < 0.2 mg/dL (0-0.2)
[2018-12-06 10:37] LABS: INR 0.99 (0.87-1.13); Partial Thromboplastin Time 27.4 Sec. (24.2-36.6)
[2018-12-06 11:15] LABS: Eosinophils % (Manual) 0 % (0.0-4.3); Giant Platelets Rare; Macrocytosis Few; Myelocytes # (Manual) 0.1 K/mm3; Platelet Estimate Consistent w Auto; Total Cells Counted 100
--- NOTE | 2018-12-06 11:51 | Cat Scan Report ---
CTA chest with contrast CT abdomen and pelvis with contrast INDICATION : chest pain rule out PE. Region is day #4 with acute generalized chest pain a nd abdominal pain TECHNIQUE: Axial imaging performed through the chest, with contrast bolus timing set to maximize opa cification of the pulmonary arteries. 3-D reformatted images were obtained. All CT scans at this [facility] ation are performed using CT dose reduction for ALARA by means of automated exposure control. 100 mL of intravenous contrast administered. COMPARISON: None FINDINGS: Chest: Contrast bolus timing is adequate with no filling defect present to suggest PTE. The heart and great vessels appear normal. The lungs are clear. There is no acute osseous abnormality and no signi ficant DJD. Abdomen/pelvis: The uterus remains quite enlarged with several areas of low attenuation within the my ometrium which presumably represents fibroid disease (it should be noted that the previous abdominal ultrasound from 11/25/2018 focused only on the fetus and did not demonstrate the uterus in its entiret y). No acute hemorrhage identified. There is some contrast blush within the partially collapsed urina ry bladder not to be confused with hemorrhage. There is hepatic steatosis with no focal mass identified. The gallbladder, spleen, pancreas, adrenals , and proximal GI tract appear unremarkable. There is trace pelvic free fluid. No acute colonic abnormality identified. IMPRESSION: 1. Negative for PTE. Clear lungs. 2. Large uterus with several internal masses and calcifications likely representing fibroi d disease. No acute hemorrhage or fluid collection identified. Signer Name: Tushar Byers MD Signed: 12/06/2018 11:47 AM Workstation Name: [id number]
[2018-12-06] MEDS ORDERED: BABY ASPIRIN PO ONE (12:20)
[2018-12-06] MEDS ORDERED: MAGNESIUM SULFATE 40GM/1000ML 40 GM/1,000 ML BAG IV ONE (17:52)
[2018-12-06] MEDS ORDERED: LACTATED RINGERS 1,000 ML ONE (17:52)
--- NOTE | 2018-12-06 17:58 | History and Physical Report ---
History of Present Illness Date of examination: 12/06/18 Date of admission: 12/06/18 16:34 Chief complaint: Elevated BP's History of present illness: Pt is a 33yo BF s/p 12/02/18 with a history of anemia, chronic hypertension and large uterine leiomyomata. She states that she was instructed to increase her blood pressure medicine on discharge, but she has a prescription at [facility] which she has not picked up yet. She complained of chest pain and abdominal pain since yesterday. The onset of both was near a simultaneous. She states that the chest pain began early in the morning and the abdominal pain thereafter. They both hurt independently; there is no radiation. She patient denies headaches or blurred vision, a history of prior pulmonary embolism or DVT, and did not receive care for this . Past History Past Medical History: hypertension Past Surgical History: no surgical history Social history: no significant social history, single - Obstetrical History : 3 Medications and Allergies Allergies Allergy/AdvReac Type Severity Reaction Status Date / Time No Known Allergies Allergy Verified 08/27/18 23:32 Home Medications Medication Instructions Recorded Confirmed Last Taken Type Methyldopa [Aldomet] 250 mg PO BID 08/28/18 12/06/18 11/10/18 10:00 History 250 Vit-Fe Fumar-FA [ 1 each PO QDAY #30 tablet 12/03/18 12/06/18 Unknown Rx Vitamin] Review of Systems All systems: negative - Vital Signs Vital signs: Vital Signs Temp Pulse Resp BP Pulse Ox 98 F 55 L 16 194/105 100 12/06/18 09:15 12/06/18 09:15 12/06/18 09:15 12/06/18 09:15 12/06/18 09:15 Temp Pulse Resp BP Pulse Ox 98 F 59 L 16 152/88 100 12/06/18 09:15 12/06/18 16:46 12/06/18 16:46 12/06/18 16:46 12/06/18 16:46 - Physical Exam Cardiovascular: Regular rate Lungs: Positive: Clear to auscultation Abdomen: Positive: normal appearance, soft Uterus: Positive: enlarged Extremities: Positive: normal Results Result Diagrams: 12/06/18 09:42 12/06/18 09:42 Abnormal lab results 12/06/18 12/06/1819 Range/Units 09:21 09:42 09:42 RBC 3.57 L (3.65-5.03) M/mm3 RDW 16.4 H (13.2-15.2) % Monocytes % (Manual) 8.0 H (0.0-7.3) % Basophils % (Manual) 2.0 H (0.0-1.8) % Potassium 3.4 L (3.6-5.0) mmol/L BUN 5 L (7-17) mg/dL Creatinine 0.4 L (0.7-1.2) mg/dL AST 109 H (5-40) units/L ALT 120 H (7-56) units/L Alkaline Phosphatase 223 H (35-129) units/L NT-Pro-B Natriuret Pep 1014 H (0-450) pg/mL Albumin 3.4 L (3.9-5) g/dL Lipase 11 L (13-60) units/L Urine pH 8.0 H (5.0-7.0) All other labs normal. Assessment and Plan - Patient Problems (1) Pre-eclampsia, Onset Date: 12/06/18 Current Visit: Yes Status: Acute Plan to address problem: A: Post preeclampsia with elevated LFT's s/p 12/02/18 Chronic hypertension Uterine fibroids P: Will admit for IV Magnesium sulfate and IV Labetolol Monitor LFT's (2) Chronic hypertension Onset Date: 12/02/18 Current Visit: No Status: Chronic (3) Fibroids Onset Date: 12/02/18 Current Visit: No Status: Chronic Qualifiers: Uterine leiomyoma location: intramural and subserous Qualified Code(s): D25.1 - Intramural leiomyoma of uterus; D25.2 - Subserosal leiomyoma of uterus
[2018-12-06] MEDS ORDERED: TYLENOL PO PRN (18:20)
[2018-12-06] MEDS ORDERED: COLACE PO PRN (18:20)
[2018-12-06] MEDS ORDERED: LACTATED RINGERS 1,000 ML IV SCH (19:00)
[2018-12-06] MEDS ORDERED: MAGNESIUM SULFATE 40GM/1000ML 40 GM/1,000 ML BAG IV SCH (19:00)
[2018-12-06] MEDS ORDERED: NORMODYNE PO SCH (22:00)
[2018-12-06 23:35] LABS: Amphetamine Screen,Urine PRESUMPTIVE NEGATIVE; Benzodiazepines Screen,Urine PRESUMPTIVE NEGATIVE; Cocaine Screen,Urine PRESUMPTIVE NEGATIVE; Methadone Screen,Urine PRESUMPTIVE NEGATIVE; Opiate Screen,Urine PRESUMPTIVE NEGATIVE
[2018-12-07 00:02] LABS: Cannabinoid Screen,Urine PRESUMPTIVE POSITIVE
[2018-12-07] MEDS: PERCOCET 5/325 PO PRN ×2 (08:35→20:05)
[2018-12-07] MEDS ORDERED: NORMODYNE PO SCH (08:58)
[2018-12-07 09:24] LABS: Alanine Aminotransferase 253 units/L (7-56)
[2018-12-07] MEDS: PRENATAL VITAMIN PO SCH (09:35)
[2018-12-07] MEDS: NORMODYNE PO SCH ×2 (09:36→21:59)
--- NOTE | 2018-12-07 14:13 | Progress Note ---
Assessment and Plan - Patient Problems (1) Pre-eclampsia, Onset Date: 12/06/18 Current Visit: Yes Status: Acute Plan to address problem: A: Post preeclampsia with elevated LFT's s/p 12/02/18 Chronic hypertension Uterine fibroids P: Continue IV Magnesium sulfate x 24hr and PO Labetolol 300mg BID Repeat LFT's in AM. (2) Chronic hypertension Onset Date: 12/02/18 Current Visit: No Status: Chronic (3) Fibroids Onset Date: 12/02/18 Current Visit: No Status: Chronic Qualifiers: Uterine leiomyoma location: intramural and subserous Qualified Code(s): D25.1 - Intramural leiomyoma of uterus; D25.2 - Subserosal leiomyoma of uterus Subjective - Subjective Date of service: 12/07/18 Principal diagnosis: Post preeclampsia with elevated LFT's Interval history: Pt is a 33yo BF s/p 12/02/18 with a history of anemia, chronic hypertension and large uterine leiomyomata. She states that she was instructed to increase her blood pressure medicine on discharge, but she has a prescription at [facility] which she has not picked up yet. She complained of chest pain and abdominal pain since yesterday - now improved. She states that the chest pain began early in the morning and the abdominal pain thereafter. They both hurt independently; there is no radiation. Today she denies headaches, blurred vision or epigastric pain, a history of prior pulmonary embolism or DVT. Patient reports: appetite normal, voiding normally, pain well controlled, flatus, ambulating normally, no dizzy ambulation, no nauseated Objective - Vital Signs Latest vital signs: Vital Signs Temp Pulse Resp BP BP Pulse Ox 12/07/18 13:13 69 145/94 12/07/18 12:44 73 159/84 12/07/18 12:13 65 132/74 12/07/18 11:49 62 122/74 12/07/18 11:43 71 131/76 12/07/18 11:14 70 139/88 12/07/18 10:43 61 153/97 12/07/18 10:14 71 154/88 12/07/18 09:43 73 170/105 12/07/18 09:36 67 135/74 12/07/18 09:13 72 150/92 12/07/18 08:43 81 163/96 12/07/18 08:14 77 162/96 12/07/18 08:13 88 173/107 12/07/18 05:50 98.1 F 12/07/18 04:53 63 152/83 12/07/18 03:53 60 155/84 12/07/18 02:53 56 L 148/83 12/07/18 02:27 59 L 138/75 12/07/18 02:00 98.4 F 20 12/07/18 01:53 69 159/90 12/07/18 01:03 97.8 F 18 12/07/18 00:53 57 L 153/86 12/07/18 00:38 55 L 138/79 12/06/18 23:53 57 L 144/83 12/06/18 23:02 18 12/06/18 22:53 55 L 126/69 12/06/18 22:05 97.8 F 12/06/18 21:53 70 131/80 12/06/18 20:53 69 125/82 12/06/18 19:53 71 117/70 12/06/18 18:53 69 138/87 12/06/18 16:46 59 L 16 152/88 100 Intake and Output 12/06/18 12/07/18 12/07/18 22:59 06:59 14:59 Output Total 400 1200 Balance -400 -1200 Output: Urine 400 1200 Indwelling Catheter 400 1200 Other: Total, Output Amount 400 400 Weight 77.111 kg - Exam Abdomen: Present: normal appearance, soft Uterus: Present: normal Extremities: Present: normal - Labs Labs: Abnormal lab results 12/07/18 12/07/18 12/07/18 Range/Units 00:18 05:21 08:31 Magnesium 4.30 H 5.10 H (1.7-2.3) mg/dL AST 218 H (5-40) units/L ALT 253 H (7-56) units/L Alkaline Phosphatase 169 H (35-129) units/L Lactate Dehydrogenase 476 H (91-180) units/L
[2018-12-08 10:07] LABS: Alanine Aminotransferase 169 units/L (7-56)
[2018-12-08] MEDS: PRENATAL VITAMIN PO SCH (10:27)
[2018-12-08] MEDS: NORMODYNE PO SCH ×2 (10:28→22:38)
[2018-12-08] MEDS: PROCARDIA XL PO SCH (10:28)
[2018-12-08] MEDS: PERCOCET 5/325 PO PRN ×2 (15:44→21:21)
--- NOTE | 2018-12-08 16:28 | Progress Note ---
Assessment and Plan - Patient Problems (1) Pre-eclampsia, Onset Date: 12/06/18 Current Visit: Yes Status: Acute Plan to address problem: A: Post preeclampsia with elevated LFT's - decreasing s/p 12/02/18 Chronic hypertension - currently on Labetolol 300mg BID Uterine fibroids P: Continue PO Labetolol 300mg BID and add Procardia XL 30mg QD Repeat LFT's in AM. (2) Chronic hypertension Onset Date: 12/02/18 Current Visit: No Status: Chronic (3) Fibroids Onset Date: 12/02/18 Current Visit: No Status: Chronic Qualifiers: Uterine leiomyoma location: intramural and subserous Qualified Code(s): D25.1 - Intramural leiomyoma of uterus; D25.2 - Subserosal leiomyoma of uterus Subjective - Subjective Date of service: 12/08/18 Principal diagnosis: Post preeclampsia with elevated LFT's Interval history: Pt is a 33yo BF s/p 12/02/18 with a history of anemia, chronic hypertension and large uterine leiomyomata. She states that she was instructed to increase her blood pressure medicine on discharge, but she has a prescription at [facility] which she has not picked up yet. She complained of chest pain and abdominal pain since yesterday - now improved. She states that the chest pain began early in the morning and the abdominal pain thereafter. They both hurt independently; there is no radiation. Today she denies headaches, blurred vision or epigastric pain, a history of prior pulmonary embolism or DVT. Patient reports: appetite normal, voiding normally, pain well controlled, flatus, ambulating normally, no dizzy ambulation, no nauseated Objective - Vital Signs Latest vital signs: Vital Signs Temp Pulse Resp BP BP Pulse Ox 12/08/18 15:52 98 F 12/08/18 15:29 59 L 155/87 100 12/08/18 13:55 98.5 F 62 18 150/81 12/08/18 10:28 170/80 12/08/18 07:51 98.8 F 58 L 18 171/87 99 12/08/18 05:24 97.9 F 58 L 20 170/95 97 12/08/18 00:17 97.8 F 64 20 141/79 97 12/07/18 21:59 62 152/83 12/07/18 21:08 59 L 149/93 100 12/07/18 18:14 66 132/76 12/07/18 17:43 65 143/93 12/07/18 17:14 55 L 188/94 12/07/18 16:44 57 L 165/101 12/07/18 16:34 98.2 F 16 Intake and Output 12/08/18 12/08/18 12/08/18 06:59 14:59 22:59 Intake Total 240 360 Balance 240 360 Intake: Oral 240 360 Other: Total, Intake Amount 240 360 # Voids Void 1 1 - Exam Abdomen: Present: normal appearance, soft - Labs Labs: Abnormal lab results 12/08/18 Range/Units 08:27 AST 64 H (5-40) units/L ALT 169 H (7-56) units/L Alkaline Phosphatase 137 H (35-129) units/L Lactate Dehydrogenase 350 H (91-180) units/L
[2018-12-09] MEDS: PERCOCET 5/325 PO PRN ×2 (02:51→08:50)
[2018-12-09 09:19] LABS: Alanine Aminotransferase 123 units/L (7-56)
--- NOTE | 2018-12-09 10:22 | Progress Note ---
Assessment and Plan - Patient Problems (1) Pre-eclampsia, Onset Date: 12/06/18 Current Visit: Yes Status: Resolved Plan to address problem: A: Post preeclampsia with elevated LFT's - decreasing s/p 12/02/18 Chronic hypertension - stable. Currently on Labetolol 300mg BID and Procardia XL 30mg QD Uterine fibroids P: May go home today Follow up in office in 1 week for BP check. (2) Chronic hypertension Onset Date: 12/02/18 Current Visit: No Status: Chronic (3) Fibroids Onset Date: 12/02/18 Current Visit: No Status: Chronic Qualifiers: Uterine leiomyoma location: intramural and subserous Qualified Code(s): D25.1 - Intramural leiomyoma of uterus; D25.2 - Subserosal leiomyoma of uterus Subjective - Subjective Date of service: 12/09/18 Principal diagnosis: Post preeclampsia with elevated LFT's Interval history: Pt is a 33yo BF s/p 12/02/18 with a history of anemia, chronic hypertension and large uterine leiomyomata. She states that she was instructed to increase her blood pressure medicine on discharge, but she has a prescription at [facility] which she has not picked up yet. She complained of chest pain and abdominal pain since yesterday - now improved. She states that the chest pain began early in the morning and the abdominal pain thereafter. They both hurt independently; there is no radiation. Today she denies headaches, blurred vision or epigastric pain, a history of prior pulmonary embolism or DVT. Patient reports: appetite normal, voiding normally, pain well controlled, flatus, ambulating normally, no dizzy ambulation, no nauseated Objective - Vital Signs Latest vital signs: Vital Signs Temp Pulse Resp BP BP Pulse Ox 12/09/18 07:50 97.8 F 62 20 150/85 99 12/09/18 05:36 97.7 F 68 20 135/82 100 12/09/18 02:51 18 12/09/18 01:24 97.7 F 65 20 126/86 98 12/08/18 22:38 58 L 159/90 12/08/18 21:21 18 12/08/18 20:45 98.2 F 64 20 138/84 100 12/08/18 15:52 98 F 12/08/18 15:29 59 L 155/87 100 12/08/18 13:55 98.5 F 62 18 150/81 12/08/18 10:28 170/80 Intake and Output 12/08/18 12/09/18 12/09/18 22:59 06:59 14:59 Intake Total 960 560 Balance 960 560 Intake: Oral 960 360 Intake, Free Water 200 Other: Total, Intake Amount 480 360 # Voids Void 1 1 1 # Bowel Movements 1 - Exam Abdomen: Present: normal appearance, soft Uterus: Present: normal, firm - Labs Labs: Abnormal lab results 12/09/18 Range/Units 08:40 ALT 123 H (7-56) units/L Alkaline Phosphatase 134 H (35-129) units/L Lactate Dehydrogenase 275 H (91-180) units/L Laboratory Results - last 24 hr 12/09/18 08:40 AST 25 ALT 123 H Alkaline Phosphatase 134 H Lactate Dehydrogenase 275 H
--- NOTE | 2018-12-09 10:23 | Discharge Summary ---
Providers - Providers Date of Admission: 12/06/18 16:34 Date of discharge: 12/09/18 Attending physician: KWADWO ECSALANTE [facility] Reason for admission: other ( preeclampsia; Chronic hypertension; Elevated LFT's; Uterine fibroids) Other procedures: none complications: none Discharge diagnosis: other ( preeclampsia - reolved) Hospital course: Pt is a 33yo BF s/p 12/02/18 with a history of anemia, chronic hypertension and large uterine leiomyomata. She presented to [facility] ER complaining of chest pain and abdominal pain. Her BP's were elevated 194/105 and LFT's also elevated (AST 109; ALT 120) and she complained of headaches, but denied blurred vision or epigastric pain, or a history of prior pulmonary embolism or DVT. She received IV Magnesium sulfate and her BP was eventually controlled with PO Labetolol 300mg BID and Procardia XL 30mg QD - now 135/82 and improving LFT's (AST 25; ALT 123). She will therefore be discharged to home today, with plans to follow up for BP check in 1 week. Condition at discharge: Good Disposition: DC-01 TO HOME OR SELFCARE - Discharge Diagnoses (1) Pre-eclampsia, Status: Resolved (2) Chronic hypertension Status: Chronic (3) Fibroids Status: Chronic Qualifiers: Uterine leiomyoma location: intramural and subserous Qualified Code(s): D25.1 - Intramural leiomyoma of uterus; D25.2 - Subserosal leiomyoma of uterus Plan - Discharge Medications Prescriptions: Labetalol [Labetalol 100mg TAB] 300 mg PO BID #60 tablet oxyCODONE /ACETAMINOPHEN [Percocet 5/325 mg] 1 tab PO Q6H PRN #14 tablet PRN Reason: Pain, Moderate (4-6) NIFEdipine XL [Procardia Xl] 30 mg PO QDAY #30 tablet - Provider Discharge Summary Activity: routine, no sex for 6 weeks, no heavy lifting 4 weeks, no strenuous exercise Diet: routine Instructions: routine Additional instructions: [] Smoking cessation referral if applicable(refer to patient education folder for contact #) [] Refer to [facility]'s [facility] Booklet Call your doctor immediately for: * Fever > 100.5 * Heavy vaginal bleeding ( >1 pad per hour) * Severe persistent headache * Shortness of breath * Reddened, hot, painful area to leg or breast * Drainage or odor from incision. * Keep incision clean and dry at all times and follow doctor's instructions regarding bathing/showering - Follow up plan Follow up: RHONDA BARNHART MD [Primary Care Provider] - 3-5 Days KWADWO ESCALANTE MD [Staff Physician] - 7 Days
[2018-12-09] MEDS: PROCARDIA XL PO SCH (10:32)
[2018-12-09] MEDS: NORMODYNE PO SCH (10:32)
[2018-12-09] MEDS: PRENATAL VITAMIN PO SCH (10:34)
[2018-12-09 11:22] VITALS: BP 145/100
== END 2018-12-09 11:35 | disposition home or self-care (01) | DRG 776 ==
LOC: ED 08:58 → OB 16:34 → LD 17:59 → OB 12-07 18:38
PROVIDERS: ADMIT Obstetrics & Gynecology; ATTEND Obstetrics & Gynecology
DX: O11.5 Pre-existing hypertension with pre-eclampsia, complicating the puerperium (principal); O10.03 Pre-existing essential hypertension complicating the puerperium; D25.1 Intramural leiomyoma of uterus; D25.2 Subserosal leiomyoma of uterus; O90.89 Other complications of the puerperium, not elsewhere classified; Z37.0 Single live birth
CPT/HCPCS: 36415; 71275; 74177; 80048; 80076; 80307; 81001; 82550; 82553; 83615; 83690; 83735; 83880; 84075; 84450; 84460; 84484; 85007; 85025; 85610; 85730; 86850; 86900; 86901; 93005; 93010; 99292; G0378; J2270; J2405; J3475; J7120; Q9967

== ENCOUNTER 2020-06-28 21:59 | Emergency (ER) | payer OTHER ==
[2020-06-28] MEDS ORDERED: METOCLOPRAMIDE 10 MG/2 ML INJ IV ONE (22:08)
[2020-06-28] MEDS ORDERED: SODIUM CHLORIDE 0.9% 1000 ML 1,000 ML IV ONE (22:08)
--- NOTE | 2020-06-28 22:11 | Emergency Department Report ---
HPI - General Time Seen by Provider: 06/28/20 22:02 - HPI HPI: This is a 35-year-old -Turkmen female presents to the emergency department via EMS from home with complaint of nausea and vomiting, lower abdominal and pelvic cramping pain, and vaginal bleeding, while . Patient says that she is about 13 weeks . Earlier today the patient became very nauseated and started vomiting. This evening the patient also started having some vaginal bleeding that she says is mild to moderate, but "there are clots." With this she is G5, P2 with 2 live children and 2 previous miscarriages. Patient just had her first appointment with her CONCRETER yesterday. She is unsure of the name of the physician or the group, but says that they are "right here on [address] No known aggravating or alleviating factors. She has not taken anything for her symptoms prior to presentation. She denies any dysuria, vaginal discharge, fever, headache, nikky rtness of breath, chest pain. ED Past Medical Hx - Past Medical History Hx Hypertension: Yes Hx Congestive Heart Failure: No Hx Diabetes: No Hx Deep Vein Thrombosis: No Hx Renal Disease: No Hx Sickle Cell Disease: No Hx Seizures: No Hx Asthma: No Hx COPD: No Hx HIV: No Additional medical history: Fibroids - Social History Smoking Status: Never Smoker - Medications Home Medications: Home Medications Medication Instructions Recorded Confirmed Last Taken Type Methyldopa [Aldomet] 250 mg PO BID 08/28/18 12/06/18 11/10/18 10:00 History 250 Vit-Fe Fumar-FA [ 1 each PO QDAY #30 tablet 12/03/18 12/06/18 Unknown Rx Vitamin] NIFEdipine XL [Procardia Xl] 30 mg PO QDAY #30 tablet 12/09/18 Unknown Rx labetaloL [Labetalol 100mg TAB] 300 mg PO BID #60 tablet 12/09/18 Unknown Rx oxyCODONE /ACETAMINOPHEN [Percocet 1 tab PO Q6H PRN #14 tablet 12/09/18 Unknown Rx 5/325 mg] Metoclopramide [Reglan] 10 mg PO TID PRN #14 tab 06/29/20 Unknown Rx ED Review of Systems ROS: Stated complaint: 13WKS PREG/BLEEDING Other details as noted in HPI Comment: All other systems reviewed and negative Constitutional: denies: chills, fever Eyes: denies: eye pain, vision change ENT: denies: ear pain, throat pain Respiratory: denies: cough, shortness of breath Cardiovascular: denies: chest pain, palpitations Gastrointestinal: abdominal pain, nausea, vomiting Genitourinary: other (vaginal bleeding, pelvic cramping). denies: dysuria, discharge Musculoskeletal: denies: back pain, arthralgia Skin: denies: rash, lesions Neurological: denies: headache, weakness Physical Exam - Physical Exam Physical Exam: GENERAL: The patient is well-developed well-nourished. HENT: Normocephalic. Atraumatic. Patient has moist mucous membranes. EYES: Extraocular motions are intact. NECK: Supple. Trachea is midline. CHEST/LUNGS: Clear to auscultation. There is no respiratory distress noted. HEART/CARDIOVASCULAR: Regular. There is no tachycardia. There is no murmur. ABDOMEN: Abdomen is soft, nontender. Patient has normal bowel sounds. SKIN: Skin is warm and dry. NEURO: The patient is awake, alert, and oriented. The patient is cooperative. The patient has no focal neurologic deficits. Normal speech. MUSCULOSKELETAL: There is no tenderness or deformity. There is no limitation range of motion. ED Medical Decision Making - Lab Data Result diagrams: 06/28/20 22:20 06/28/20 22:20 Lab Results 06/28/20 06/28/20 06/28/20 Range/Units 22:20 22:20 22:20 WBC 8.3 (4.5-11.0) K/mm3 RBC 4.19 (3.65-5.03) M/mm3 Hgb 8.4 L (10.1-14.3) gm/dl Hct 27.7 L (30.3-42.9) % MCV 66 L (79-97) fl MCH 20 L (28-32) pg MCHC 31 (30-34) % RDW 22.8 H (13.2-15.2) % Plt Count 304 (140-440) K/mm3 Lymph % (Auto) Community Relations Liaison [place] % (Auto) Community Relations Liaison Eos % (Auto) Community Relations Liaison Baso % (Auto) Community Relations Liaison Lymph # (Auto) Community Relations Liaison [place] # (Auto) Community Relations Liaison Eos # (Auto) Community Relations Liaison Baso # (Auto) Community Relations Liaison Seg Neutrophils % Community Relations Liaison Seg Neutrophils # Community Relations Liaison Sodium 137 (137-145) mmol/L Potassium 3.5 L (3.6-5.0) mmol/L Chloride 103.1 (98-107) mmol/L Carbon Dioxide 17 L (22-30) mmol/L Anion Gap 20 mmol/L BUN 4 L (7-17) mg/dL Creatinine 0.4 L (0.6-1.2) mg/dL Estimated GFR > 60 ml/min BUN/Creatinine Ratio 10 % Glucose 103 H (65-100) mg/dL Calcium 8.8 (8.4-10.2) mg/dL HCG, Qual (Negative) Urine Color (Yellow) Urine Turbidity (Clear) Urine pH (5.0-7.0) Ur Specific [place] (1.003-1.030) Urine Protein (Negative) mg/dL Urine Glucose (UA) (Negative) mg/dL Urine Ketones (Negative) mg/dL Urine Blood (Negative) Urine Nitrite (Negative) Urine Bilirubin (Negative) Urine Urobilinogen (<2.0) mg/dL Ur Leukocyte Esterase (Negative) Urine WBC (Auto) (0.0-6.0) /HPF Urine RBC (Auto) (0.0-6.0) /HPF U Epithel Cells (Auto) (0-13.0) /HPF Urine Bacteria (Auto) (Negative) /HPF Urine Mucus /HPF Blood Type O POSITIVE Ord Rhogam Gestat Weeks >=11 WEEKS 06/28/20 06/29/20 Range/Units 22:36 00:17 WBC (4.5-11.0) K/mm3 RBC (3.65-5.03) M/mm3 Hgb (10.1-14.3) gm/dl Hct (30.3-42.9) % MCV (79-97) fl MCH (28-32) pg MCHC (30-34) % RDW (13.2-15.2) % Plt Count (140-440) K/mm3 Lymph % (Auto) [place] % (Auto) Eos % (Auto) Baso % (Auto) Lymph # (Auto) [place] # (Auto) Eos # (Auto) Baso # (Auto) Seg Neutrophils % Seg Neutrophils # Sodium (137-145) mmol/L Potassium (3.6-5.0) mmol/L Chloride (98-107) mmol/L Carbon Dioxide (22-30) mmol/L Anion Gap mmol/L BUN (7-17) mg/dL Creatinine (0.6-1.2) mg/dL Estimated GFR ml/min BUN/Creatinine Ratio % Glucose (65-100) mg/dL Calcium (8.4-10.2) mg/dL HCG, Qual Positive (Negative) Urine Color Yellow (Yellow) Urine Turbidity Slightly-cloudy (Clear) Urine pH 6.0 (5.0-7.0) Ur Specific [place] 1.022 (1.003-1.030) Urine Protein >500 (Negative) mg/dL Urine Glucose (UA) Neg (Negative) mg/dL Urine Ketones 80 (Negative) mg/dL Urine Blood Mod (Negative) Urine Nitrite Neg (Negative) Urine Bilirubin Neg (Negative) Urine Urobilinogen < 2.0 (<2.0) mg/dL Ur Leukocyte Esterase Neg (Negative) Urine WBC (Auto) 1.0 (0.0-6.0) /HPF Urine RBC (Auto) 120.0 (0.0-6.0) /HPF U Epithel Cells (Auto) 1.0 (0-13.0) /HPF Urine Bacteria (Auto) 1+ (Negative) /HPF Urine Mucus 2+ /HPF Blood Type Ord Rhogam Gestat Weeks WEEKS - Radiology Data Radiology results: report reviewed ULTRASOUND OBSTETRIC INDICATION / CLINICAL INFORMATION: 13 week , vag bleeding, pelvic cramping. Clinical Gestational Age (GA): 13 weeks.days TECHNIQUE: Transabdominal. COMPARISON: CT scan dated 12/06/2018 FINDINGS: There is a single intrauterine . Biparietal Diameter = 2.9 cm = 15.2 weeks.days Head Circumference = 10.5 cm = 15.0 weeks.days Abdominal Circumference = 8.3 cm = 14.4 weeks.days Femur Length = 1.6 cm = 14.5 weeks.days Average Ultrasound Age (AUA) = 14.6 weeks.days Heart Rate: 160 beats per minute. Position: cephalic. Cervix: closed. Length in cm (if measured): 4.5 Placenta: posterior, grade 0 and free of the os. Amniotic Fluid Volume: normal Uterine fibroids are noted. The largest measures 9 cm IMPRESSION: 1. Single, living intrauterine with estimated sonographic age of 14.6 weeks.days 2. There are uterine fibroids. - Medical Decision Making This patient presents to the emergency department with a complaint of nausea and vomiting, vaginal bleeding, while . Patient was given IV fluid resuscitation and multiple doses of antiemetics. She had a ultrasound that shows a live intrauterine at almost 15 weeks. The patient also has multiple uterine fibroids with one of them being very large at almost 10 cm in its greatest diameter. Patient's labs shows some anemia with a hemoglobin of about 8.5, but this is consistent with previous visits, and the patient does not appear symptomatic from the anemia or require transfusions at this time. Her blood type is O+ and therefore the patient does not need the RhoGam shot at this time. Urinalysis shows some hematuria consistent with the vaginal bleeding, but no signs of any urinary tract infection. The patient was reevaluated multiple times of multiple hours and appears improved. She was able to pass an oral challenge. Vital signs have been reassuring throughout her ED course. The patient has very good outpatient follow-up with CONCRETER. She will increase oral rehydration. She will return to the emergency department with any worsening of her symptoms or with any acute distress. Critical Care Time: No Critical care attestation.: If time is entered above; I have spent that time in minutes in the direct care of this critically ill patient, excluding procedure time. ED Disposition Clinical Impression: Threatened miscarriage Qualifiers: Weeks of gestation: 15 weeks Qualified Code(s): Z3A.15 - 15 weeks gestation of Fibroids Qualifiers: Uterine leiomyoma location: unspecified location Qualified Code(s): D25.9 - Leiomyoma of uterus, unspecified Disposition: DC-01 TO HOME OR SELFCARE Is pt being admited?: No Condition: Stable Instructions: Threatened Miscarriage, Uterine Fibroids, Second Trimester of Additional Instructions: Please follow-up with your CONCRETER in the next few days. Increase your oral rehydration. Return to the emergency department with any worsening of your symptoms, new or concerning symptoms not addressed during this current emergency department visit, or with any acute distress. Prescriptions: Metoclopramide [Reglan] 10 mg PO TID PRN #14 tab PRN Reason: Nausea Referrals: OBGYN, Your [Other] - 2-3 Days Time of Disposition: 01:41
[2020-06-28 23:22] LABS: Hematocrit 27.7 % (30.3-42.9); Hemoglobin 8.4 gm/dl (10.1-14.3); Mean Corpuscular HGB Conc 31 % (30-34); Mean Corpuscular Volume 66 fl (79-97); Platelet Count 304 K/mm3 (140-440); Red Blood Count 4.19 M/mm3 (3.65-5.03); Red Cell Distribution Width 22.8 % (13.2-15.2)
[2020-06-28 23:26] LABS: BUN/Creatinine Ratio 10; Blood Urea Nitrogen 4 mg/dL (7-17); Calcium 8.8 mg/dL (8.4-10.2); Hemolysis Index 0
[2020-06-28] MEDS ORDERED: ONDANSETRON 4 MG/2 ML INJ IV ONE (23:36)
[2020-06-29] MEDS ORDERED: ACETAMINOPHEN 325 MG TAB PO ONE (00:21)
[2020-06-29 00:34] LABS: Bacteria,Urine 1+ /HPF (Negative); Bilirubin,Urine NEG (Negative); Blood,Urine MOD (Negative); Color,Urine Yellow (Yellow); Mucus,Urine 2+ /HPF; Urobilinogen,Urine < 2.0 mg/dL (<2.0)
[2020-06-29 00:49] LABS: Protein,Urine >500 mg/dL (Negative)
--- NOTE | 2020-06-29 00:51 | Ultrasound Report ---
ULTRASOUND OBSTETRIC INDICATION / CLINICAL INFORMATION: 13 week , vag bleeding, pelvic cramping. Clinical Gestational Age (GA): 13 weeks.days TECHNIQUE: Transabdominal. COMPARISON: CT scan dated 12/06/2018 FINDINGS: There is a single intrauterine . Biparietal Diameter = 2.9 cm = 15.2 weeks.days Head Circumference = 10.5 cm = 15.0 weeks.days Abdominal Circumference = 8.3 cm = 14.4 weeks.days Femur Length = 1.6 cm = 14.5 weeks.days Average Ultrasound Age (AUA) = 14.6 weeks.days Heart Rate: 160 beats per minute. Position: cephalic. Cervix: closed. Length in cm (if measured): 4.5 Placenta: posterior, grade 0 and free of the os. Amniotic Fluid Volume: normal Uterine fibroids are noted. The largest measures 9 cm IMPRESSION: 1. Single, living intrauterine with estimated sonographic age of 14.6 weeks.days 2. There are uterine fibroids. Signer Name: Jose Pride MD Signed: 06/29/2020 12:46 AM Workstation Name: [id number]
[2020-06-29] MEDS ORDERED: ONDANSETRON 4 MG/2 ML INJ IV ONE (01:00)
[2020-06-29 02:04] VITALS: BP 143/69
== END 2020-06-29 02:05 | disposition home or self-care (01) ==
LOC: ED 21:59
DX: O20.0 Threatened abortion (principal); O26.891 Other specified pregnancy related conditions, first trimester; O16.1 Unspecified maternal hypertension, first trimester; D25.9 Leiomyoma of uterus, unspecified; Z3A.13 13 weeks gestation of pregnancy; Z79.899 Other long term (current) drug therapy
CPT/HCPCS: 36415; 76805; 80048; 81001; 84703; 85025; 86900; 86901; 96361; 96374; 96375; 96376; 99284; J2405; J2765; J7030

== ENCOUNTER 2020-08-13 19:27 | Observation (INO) | payer OTHER ==
[2020-08-13] MEDS ORDERED: LACTATED RINGERS 500 ML IV ONE (19:52)
[2020-08-13] MEDS ORDERED: TERBUTALINE 1 MG/1 ML INJ SUB-Q SCH (20:00)
[2020-08-13 20:24] LABS: Bilirubin,Urine NEG (Negative); Blood,Urine NEG (Negative); Color,Urine Yellow (Yellow); Mucus,Urine FEW /HPF; Protein,Urine <15 mg/dL mg/dL (Negative); Urobilinogen,Urine < 2.0 mg/dL (<2.0)
[2020-08-13] MEDS ORDERED: ACETAMINOPHEN 500 MG TAB PO ONE (20:49)
[2020-08-13] MEDS ORDERED: LACTATED RINGERS 1,000 ML IV ONE (20:49)
[2020-08-13] MEDS ORDERED: ONDANSETRON 4 MG/2 ML INJ IV ONE (20:49)
[2020-08-13] MEDS ORDERED: LACTATED RINGERS 1000 ML IV SOLN IV ONE (22:27)
--- NOTE | 2020-08-14 01:00 | Ultrasound Report ---
US OB limited INDICATION: CERVICAL LENGTH. TECHNIQUE: Transabdominal. COMPARISON: None available. FINDINGS: There is a single intrauterine . Heart Rate: 160 beats per minute. Position: transverse. Cervix: 5 cm and appears closed on the provided images. Additional findings: Incompletely visualized fibroid. IMPRESSION: 1. The cervix length is approximately 5 cm Signer Name: Jorge Goodman MD Signed: 08/14/2020 12:55 AM Workstation Name: [id number]
[2020-08-14] MEDS ORDERED: ONDANSETRON 4 MG/2 ML INJ IV ONE (01:08)
[2020-08-14] MEDS ORDERED: MORPHINE 4 MG/1 ML INJ IM ONE (01:08)
[2020-08-14] MEDS ORDERED: LACTATED RINGERS 1,000 ML IV ONE (01:08)
[2020-08-14 01:10] LABS: Basophils % (Auto) 0.2 % (0.0-1.8); Eosinophils % (Auto) 0.3 % (0.0-4.3); Hemoglobin 6.6 gm/dl (10.1-14.3); Lymphocytes # (Auto) 1.4 K/mm3 (1.2-5.4); Lymphocytes % (Auto) 13.5 % (13.4-35.0); Mean Corpuscular HGB Conc 32 % (30-34); Monocytes # (Auto) 0.3 K/mm3 (0.0-0.8); Monocytes % (Auto) 3.1 % (0.0-7.3); Platelet Count 281 K/mm3 (140-440); Red Blood Count 3.23 M/mm3 (3.65-5.03); Red Cell Distribution Width 19.9 % (13.2-15.2)
[2020-08-14 01:23] LABS: Mean Corpuscular Volume 65 fl (79-97)
[2020-08-14] MEDS: LACTATED RINGERS 1,000 ML IV SCH ×2 (02:00→12:07)
[2020-08-14 02:50] LABS: Alanine Aminotransferase 10 units/L (7-56); Albumin 3.7 g/dL (3.9-5); BUN/Creatinine Ratio 6; Blood Urea Nitrogen 3 mg/dL (7-17); Calcium 8.4 mg/dL (8.4-10.2); Hemolysis Index 0
--- NOTE | 2020-08-14 03:26 | History and Physical Report ---
History of Present Illness Date of admission: 08/14/2020 Chief complaint: abdominal pain History of present illness: 35yo at 22wks presents with abdominal pain. Symptoms in lower pelvis x1 day, associated with nausea and vomiting. She denies fevers, chills, chest pain or shortness of breath. Denies constipation or diarrhea. Denies known sick contacts. Denies persistent nausea outside of this presentation. No additional complaints. Past History Past Medical History: hypertension Past Surgical History: no surgical history [employer]PER[employer] History: fibroids Family/Genetic History: hypertension Social history: no significant social history - Obstetrical History Expected Date of Delivery: 12/18/20 Actual Gestation: 22 Week(s) 0 Day(s) : 5 Para: 2 Hx # Term Pregnancies: 2 Number of Living Children: 2 Medications and Allergies Allergies Allergy/AdvReac Type Severity Reaction Status Date / Time No Known Allergies Allergy Verified 08/27/18 23:32 Home Medications Medication Instructions Recorded Confirmed Last Taken Type Methyldopa [Aldomet] 250 mg PO BID 08/28/18 12/06/18 11/10/18 10:00 History 250 Vit-Fe Fumar-FA [ 1 each PO QDAY #30 tablet 12/03/18 12/06/18 Unknown Rx Vitamin] NIFEdipine XL [Procardia Xl] 30 mg PO QDAY #30 tablet 12/09/18 Unknown Rx labetaloL [Labetalol 100mg TAB] 300 mg PO BID #60 tablet 12/09/18 Unknown Rx oxyCODONE /ACETAMINOPHEN [Percocet 1 tab PO Q6H PRN #14 tablet 12/09/18 Unknown Rx 5/325 mg] Metoclopramide [Reglan] 10 mg PO TID PRN #14 tab 06/29/20 Unknown Rx Active Meds: Active Medications Lactated Ringer's (Lactated Ringers) 1,000 mls @ 125 mls/hr IV DIRECT TEETEE Last Admin: 08/14/20 02:00 Dose: 125 mls/hr Documented by: Terbutaline Sulfate (Terbutaline 1 Mg/1 Ml Inj) 0.25 mg SUB-Q Q20MIN TEETEE Stop: 08/15/20 20:01 Last Admin: 08/13/20 22:36 Dose: 0.25 mg Documented by: Review of Systems Constitutional: fatigue, no weight loss Cardiovascular: no chest pain, no syncope, no shortness of breath Respiratory: no shortness of breath Gastrointestinal: abdominal pain Genitourinary: no dysuria - Vital Signs Vital signs: Vital Signs Pulse Pulse Ox 73 100 08/13/20 20:04 08/13/20 20:04 Temp Pulse Resp BP Pulse Ox 98.3 F 74 119/70 100 08/13/20 20:15 08/14/20 03:16 08/13/20 20:14 08/14/20 03:16 - Physical Exam Breasts: Positive: deferred Cardiovascular: Regular rate Lungs: Positive: Normal air movement Abdomen: Positive: normal appearance Uterus: Positive: normal size - Obstetrical FHR comments: +FHR Cervical Dilatation: 0 Uterine Contraction Pattern: Irregular Uterine Contraction Intensity: Moderate Results Result Diagrams: 08/14/20 00:35 08/14/20 00:35 Abnormal lab results 08/14/20 08/14/20 08/14/20 Range/Units 00:35 00:35 01:31 RBC 3.23 L (3.65-5.03) M/mm3 Hgb 6.6 L (10.1-14.3) gm/dl Hct 21.0 L (30.3-42.9) % MCV 65 L (79-97) fl MCH 21 L (28-32) pg RDW 19.9 H (13.2-15.2) % Seg Neutrophils % 82.9 H (40.0-70.0) % Seg Neutrophils # 8.5 H (1.8-7.7) K/mm3 Potassium 2.8 L* (3.6-5.0) mmol/L Carbon Dioxide 16 L (22-30) mmol/L BUN 3 L (7-17) mg/dL Creatinine 0.5 L (0.6-1.2) mg/dL Glucose 149 H (65-100) mg/dL Albumin 3.7 L (3.9-5) g/dL Lipase 8 L (13-60) units/L All other labs normal. Assessment and Plan Observation, electrolyte replacement/pain management prn - Patient Problems (1) Abdominal pain affecting Current Visit: Yes Status: Acute Plan to address problem: -usg reviewed, CL wnl -UA + ketones -s/p LR bolus, continue rate -CBC/CMP, reviewed electrolyte abnomality, amylase/lipase/liver enzymes wnl -Morphine IM x 1 -Zofran IV prn -continuous toco/FHTs q 4 hrs (2) Hypokalemia Current Visit: Yes Status: Acute Plan to address problem: -replace prn -40meq IV ordered (3) Chronic anemia Current Visit: Yes Status: Acute Plan to address problem: -hgb 7.2 06/28 -orthostatic BPs -transfuse 1 unit prbc -iron supplement BID (4) Chronic hypertension affecting Current Visit: Yes Status: Acute Plan to address problem: -no meds currently -BPs wnl -LSA daily
[2020-08-14] MEDS ORDERED: diphenhydrAMINE 50 MG/ML VIAL IV ONE (06:09)
[2020-08-14] MEDS ORDERED: SODIUM CHLORIDE 0.9% 500 ML 500 ML IV ONE (06:09)
[2020-08-14] MEDS ORDERED: ACETAMINOPHEN 325 MG TAB PO ONE ×2 (06:09→23:22)
[2020-08-14] MEDS: POTASSIUM CHLORIDE 10 MEQ 10 MEQ/100 ML BAG IV SCH ×4 (06:39→10:13)
[2020-08-14] MEDS ORDERED: FERROUS SULFATE 325 MG TAB PO SCH (07:00)
--- NOTE | 2020-08-14 07:37 | Progress Note ---
Assessment and Plan - Patient Problems (1) Hypokalemia Current Visit: Yes Status: Acute Plan to address problem: Continue current plan of transfusion of potassium and packed red blood cells Subjective - Subjective Date of service: 08/14/20 Interval history: The patient is without any significant complaints. She is scheduled to receive 1 unit of packed red blood cells in potassium replacement. Her labs will be checked after infusion of the blood and potassium. Patient reports: no new complaints Objective - Vital Signs Vital Signs: Vital Signs - 12hr 08/13/20 08/13/20 08/13/20 20:04 20:05 20:09 Temperature Pulse Rate 73 78 87 Respiratory Rate Blood Pressure O2 Sat by Pulse 100 86 100 Oximetry 08/13/20 08/13/20 08/13/20 20:14 20:15 20:19 Temperature 98.3 F Pulse Rate 96 H 92 H Respiratory Rate Blood Pressure 119/70 O2 Sat by Pulse 99 100 Oximetry 08/13/20 08/13/20 08/13/20 20:24 20:29 20:34 Temperature Pulse Rate 69 77 87 Respiratory Rate Blood Pressure O2 Sat by Pulse 100 100 99 Oximetry 08/13/20 08/13/20 08/13/20 20:39 20:44 20:45 Temperature Pulse Rate 95 H 100 H 99 H Respiratory Rate Blood Pressure O2 Sat by Pulse 100 100 94 Oximetry 08/13/20 08/13/20 08/13/20 20:49 20:50 20:54 Temperature Pulse Rate 95 H 88 91 H Respiratory Rate Blood Pressure O2 Sat by Pulse 94 89 89 Oximetry 08/13/20 08/13/20 08/13/20 20:59 21:04 21:09 Temperature Pulse Rate 111 H 83 99 H Respiratory Rate Blood Pressure O2 Sat by Pulse 93 100 100 Oximetry 08/13/20 08/13/20 08/13/20 21:14 21:18 21:19 Temperature Pulse Rate 91 H 56 L 86 Respiratory Rate Blood Pressure O2 Sat by Pulse 100 82 L 91 Oximetry 08/14/20 08/14/20 08/14/20 01:56 02:01 02:06 Temperature Pulse Rate 76 103 H 84 Respiratory Rate Blood Pressure O2 Sat by Pulse 100 100 98 Oximetry 08/14/20 08/14/20 08/14/20 02:11 02:16 02:21 Temperature Pulse Rate 79 73 81 Respiratory Rate Blood Pressure O2 Sat by Pulse 100 100 100 Oximetry 08/14/20 08/14/20 08/14/20 02:26 02:31 02:36 Temperature Pulse Rate 81 80 68 Respiratory Rate Blood Pressure O2 Sat by Pulse 100 100 100 Oximetry 08/14/20 08/14/20 08/14/20 02:41 02:46 02:51 Temperature Pulse Rate 78 74 69 Respiratory Rate Blood Pressure O2 Sat by Pulse 100 100 100 Oximetry 08/14/20 08/14/20 08/14/20 02:56 03:01 03:06 Temperature Pulse Rate 75 71 70 Respiratory Rate Blood Pressure O2 Sat by Pulse 100 100 100 Oximetry 08/14/20 08/14/20 08/14/20 03:11 03:16 03:21 Temperature Pulse Rate 82 74 75 Respiratory Rate Blood Pressure O2 Sat by Pulse 100 100 100 Oximetry 08/14/20 08/14/20 08/14/20 03:26 03:31 03:36 Temperature Pulse Rate 71 70 70 Respiratory Rate Blood Pressure O2 Sat by Pulse 100 100 100 Oximetry 08/14/20 08/14/20 08/14/20 03:41 03:56 04:01 Temperature Pulse Rate 70 75 80 Respiratory Rate Blood Pressure O2 Sat by Pulse 100 100 100 Oximetry 08/14/20 08/14/20 08/14/20 04:06 04:11 04:16 Temperature Pulse Rate 71 77 93 H Respiratory Rate Blood Pressure O2 Sat by Pulse 100 100 100 Oximetry 08/14/20 08/14/20 08/14/20 04:21 04:26 04:31 Temperature Pulse Rate 72 74 86 Respiratory Rate Blood Pressure O2 Sat by Pulse 100 100 100 Oximetry 08/14/20 08/14/20 08/14/20 04:33 04:34 04:36 Temperature 98.5 F Pulse Rate 74 67 Respiratory 20 Rate Blood Pressure 133/63 O2 Sat by Pulse 100 Oximetry 08/14/20 08/14/20 08/14/20 05:16 05:21 05:26 Temperature Pulse Rate 83 79 68 Respiratory Rate Blood Pressure O2 Sat by Pulse 100 100 100 Oximetry 08/14/20 08/14/20 08/14/20 05:31 05:36 05:41 Temperature Pulse Rate 68 79 71 Respiratory Rate Blood Pressure O2 Sat by Pulse 100 100 100 Oximetry 08/14/20 08/14/20 08/14/20 05:46 05:51 05:56 Temperature Pulse Rate 73 76 78 Respiratory Rate Blood Pressure O2 Sat by Pulse 100 100 100 Oximetry 08/14/20 08/14/20 08/14/20 06:01 06:06 06:11 Temperature Pulse Rate 84 101 H 68 Respiratory Rate Blood Pressure O2 Sat by Pulse 100 100 100 Oximetry 08/14/20 08/14/20 08/14/20 06:16 06:21 06:26 Temperature Pulse Rate 73 69 70 Respiratory Rate Blood Pressure O2 Sat by Pulse 100 100 100 Oximetry 08/14/20 08/14/20 08/14/20 06:31 07:10 07:15 Temperature Pulse Rate 69 73 66 Respiratory Rate Blood Pressure O2 Sat by Pulse 100 100 100 Oximetry 08/14/20 08/14/20 08/14/20 07:22 07:27 07:32 Temperature Pulse Rate 74 64 70 Respiratory Rate Blood Pressure O2 Sat by Pulse 100 100 100 Oximetry - Labs Labs: Abnormal Labs 08/14/20 08/14/20 08/14/20 00:35 00:35 01:31 RBC 3.23 L Hgb 6.6 L Hct 21.0 L MCV 65 L MCH 21 L RDW 19.9 H Seg Neutrophils % 82.9 H Seg Neutrophils # 8.5 H Potassium 2.8 L* Carbon Dioxide 16 L BUN 3 L Creatinine 0.5 L Glucose 149 H Albumin 3.7 L Lipase 8 L Laboratory Results - last 24 hr 08/13/20 08/14/20 08/14/20 20:00 00:35 00:35 WBC 10.2 RBC 3.23 L Hgb 6.6 L Hct 21.0 L MCV 65 L MCH 21 L MCHC 32 RDW 19.9 H Plt Count 281 Lymph % (Auto) 13.5 Lassen % (Auto) 3.1 Eos % (Auto) 0.3 Baso % (Auto) 0.2 Lymph # (Auto) 1.4 Lassen # (Auto) 0.3 Eos # (Auto) 0.0 Baso # (Auto) 0.0 Seg Neutrophils % 82.9 H Seg Neutrophils # 8.5 H Sodium 141 Potassium 2.8 L* Chloride 105.3 Carbon Dioxide 16 L Anion Gap 23 BUN 3 L Creatinine 0.5 L Estimated GFR > 60 BUN/Creatinine Ratio 6 Glucose 149 H Calcium 8.4 Total Bilirubin 0.20 AST 18 ALT 10 Alkaline Phosphatase 60 Total Protein 6.9 Albumin 3.7 L Albumin/Globulin Ratio 1.2 Amylase Lipase Urine Color Yellow Urine Turbidity Clear Urine pH 7.0 Ur Specific [place] 1.012 Urine Protein <15 mg/dl Urine Glucose (UA) Neg Urine Ketones 20 Urine Blood Neg Urine Nitrite Neg Urine Bilirubin Neg Urine Urobilinogen < 2.0 Ur Leukocyte Esterase Neg Urine WBC (Auto) 2.0 Urine RBC (Auto) 1.0 U Epithel Cells (Auto) 4.0 Urine Mucus Few 08/14/20 01:31 WBC RBC Hgb Hct MCV MCH MCHC RDW Plt Count Lymph % (Auto) Lassen % (Auto) Eos % (Auto) Baso % (Auto) Lymph # (Auto) Lassen # (Auto) Eos # (Auto) Baso # (Auto) Seg Neutrophils % Seg Neutrophils # Sodium Potassium Chloride Carbon Dioxide Anion Gap BUN Creatinine Estimated GFR BUN/Creatinine Ratio Glucose Calcium Total Bilirubin AST ALT Alkaline Phosphatase Total Protein Albumin Albumin/Globulin Ratio Amylase 38 Lipase 8 L Urine Color Urine Turbidity Urine pH Ur Specific [place] Urine Protein Urine Glucose (UA) Urine Ketones Urine Blood Urine Nitrite Urine Bilirubin Urine Urobilinogen Ur Leukocyte Esterase Urine WBC (Auto) Urine RBC (Auto) U Epithel Cells (Auto) Urine Mucus
[2020-08-14] MEDS ORDERED: diphenhydrAMINE 25 MG CAP PO ONE ×2 (09:00→09:40)
[2020-08-14] MEDS ORDERED: SODIUM CHLORIDE 0.9% 100 ML ONE (09:27)
[2020-08-14] MEDS ORDERED: ACETAMINOPHEN 325 MG TAB ONE (09:40)
[2020-08-14] MEDS ORDERED: BICITRA ORAL LIQD 30ML ONE (09:40)
[2020-08-14] MEDS ORDERED: ASPIRIN 81 MG TAB CHEW PO SCH (10:00)
[2020-08-14] MEDS ORDERED: BICITRA ORAL LIQD 30ML PO ONE (10:21)
[2020-08-14 16:53] LABS: Hematocrit 22.3 % (30.3-42.9); Hemoglobin 6.9 gm/dl (10.1-14.3); Mean Corpuscular HGB Conc 31 % (30-34); Platelet Count 246 K/mm3 (140-440); Red Blood Count 3.31 M/mm3 (3.65-5.03)
[2020-08-14 17:05] LABS: Mean Corpuscular Volume 67 fl (79-97); Red Cell Distribution Width 22.8 % (13.2-15.2)
[2020-08-14 17:11] LABS: Alanine Aminotransferase 11 units/L (7-56); Albumin 3.5 g/dL (3.9-5); Blood Urea Nitrogen 3 mg/dL (7-17); Hemolysis Index 0
[2020-08-14 17:14] LABS: BUN/Creatinine Ratio 6
[2020-08-14] MEDS ORDERED: SODIUM CHLORIDE 0.9% 500 ML 500 ML ONE (18:54)
[2020-08-14 23:30] VITALS: BP 136/77
== END 2020-08-14 23:55 | disposition home or self-care (01) ==
LOC: TRG 19:27 → APU 19:28 → TRG 08-14 04:13 → INTOOBSV 08-14 04:13 → LD 08-14 04:13
PROVIDERS: ADMIT Obstetrics & Gynecology; ATTEND Obstetrics & Gynecology
DX: O99.012 Anemia complicating pregnancy, second trimester (principal); D53.9 Nutritional anemia, unspecified; O10.912 Unspecified pre-existing hypertension complicating pregnancy, second trimester; O26.893 Other specified pregnancy related conditions, third trimester; E87.6 Hypokalemia; R10.2 Pelvic and perineal pain; R11.2 Nausea with vomiting, unspecified; Z3A.22 22 weeks gestation of pregnancy
CPT/HCPCS: 36415; 36430; 59025; 76815; 80053; 81001; 82150; 83690; 85025; 85027; 86850; 86900; 86901; 86920; 96361; 96365; 96366; 96372; 96375; G0378; J2270; J2405; J3105; J3480; J7120; P9016; 96360

== ENCOUNTER 2020-09-04 12:08 | Outpatient (CLI) | payer OTHER ==
[2020-09-04] MEDS ORDERED: LACTATED RINGERS 1,000 ML IV ONE (13:00)
[2020-09-04] MEDS ORDERED: ONDANSETRON 4 MG/2 ML INJ IV SCH (13:30)
[2020-09-04 14:42] LABS: Bilirubin,Urine NEG (Negative); Blood,Urine NEG (Negative); Color,Urine Yellow (Yellow); Mucus,Urine 2+ /HPF; Urobilinogen,Urine < 2.0 mg/dL (<2.0)
[2020-09-04 14:43] LABS: Protein,Urine >500 mg/dL (Negative)
[2020-09-04] MEDS ORDERED: LACTATED RINGERS 1,000 ML IV SCH (15:30)
[2020-09-04] MEDS ORDERED: TERBUTALINE 1 MG/1 ML INJ SUB-Q SCH (16:00)
[2020-09-04 18:09] LABS: Amphetamine Screen,Urine Negative; Benzodiazepines Screen,Urine Negative; Methadone Screen,Urine Negative; Opiate Screen,Urine Negative
[2020-09-04 18:10] VITALS: BP 139/77
[2020-09-04 18:34] LABS: Cannabinoid Screen,Urine Positive; Cocaine Screen,Urine Positive
== END 2020-09-04 18:51 | disposition home or self-care (01) ==
LOC: TRG 12:08 → APU 12:13 → TRG 18:51
PROVIDERS: ATTEND Obstetrics & Gynecology
DX: O21.2 Late vomiting of pregnancy (principal); O10.913 Unspecified pre-existing hypertension complicating pregnancy, third trimester; O47.02 False labor before 37 completed weeks of gestation, second trimester; O09.522 Supervision of elderly multigravida, second trimester; Z3A.25 25 weeks gestation of pregnancy
CPT/HCPCS: 59025; 80307; 81001; 96361; 96365; 96366; 96372; J2405; J3105; J7120; 96360

== ENCOUNTER 2020-11-27 11:15 | Inpatient (IN) | payer OTHER ==
[2020-11-27] MEDS ORDERED: BUTORPHANOL 2 MG/1 ML INJ IV PRN ×2 (12:26)
[2020-11-27] MEDS ORDERED: ePHEDrine SULFATE 50 MG/1 ML INJ IV PRN ×2 (12:26→22:46)
[2020-11-27] MEDS ORDERED: MINERAL OIL 30 ML ORAL LIQD PO PRN (12:26)
[2020-11-27] MEDS ORDERED: TERBUTALINE 1 MG/1 ML INJ SUB-Q PRN (12:26)
[2020-11-27] MEDS ORDERED: ONDANSETRON 4 MG/2 ML INJ IV PRN (12:26)
[2020-11-27] MEDS ORDERED: OXYTOCIN 10 UNIT/1 ML INJ IM PRN (12:26)
[2020-11-27] MEDS ORDERED: LOPERAMIDE 2 MG CAP PO PRN (12:26)
[2020-11-27] MEDS ORDERED: CARBOPROST TROMETHAMINE 250 MCG/1 ML INJ IM PRN (12:26)
[2020-11-27] MEDS ORDERED: LACTATED RINGERS 1,000 ML IV SCH (12:30)
[2020-11-27] MEDS ORDERED: OXYTOCIN DRIP 30 UNITS/500 ML BAG IV SCH ×2 (13:00)
[2020-11-27] MEDS ORDERED: AMPICILLIN/NS 2 GM/100 ML 2 GM/100 ML BAG IV ONE (13:26)
[2020-11-27] MEDS ORDERED: miSOPROStol 200 MCG TAB PR PRN (13:26)
[2020-11-27] MEDS ORDERED: LIDOCAINE (2%) 20 MG/1 ML VIAL 20 ML MDV INFILTRATI ONE (13:26)
[2020-11-27] MEDS ORDERED: DINOPROSTONE 10 MG VAG SUPP VG SCH (13:30)
[2020-11-27 16:34] LABS: Alanine Aminotransferase 19 units/L (7-56); Hemoglobin 7.9 gm/dl (10.1-14.3); Mean Corpuscular HGB Conc 32 % (30-34); Mean Corpuscular Volume 74 fl (79-97); Platelet Count 243 K/mm3 (140-440); Uric Acid 3.2 mg/dL (3.5-7.6)
[2020-11-27 16:40] LABS: Red Cell Distribution Width 20.6 % (13.2-15.2)
[2020-11-27] MEDS ORDERED: AMPICILLIN/NS 1 GM/50 ML 1 GM/50 ML BAG IV SCH (17:00)
[2020-11-27] MEDS ORDERED: SODIUM CHLORIDE 0.9% 500 ML 500 ML IV SCH (17:00)
[2020-11-27] MEDS ORDERED: FLUCONAZOLE 200 MG TAB PO ONE (18:00)
[2020-11-27 18:13] LABS: Bacteria,Urine 1+ /HPF (Negative); Bilirubin,Urine NEG (Negative); Blood,Urine NEG (Negative); Color,Urine Straw (Yellow); Protein,Urine <15 mg/dL mg/dL (Negative); Urobilinogen,Urine < 2.0 mg/dL (<2.0); WBC,Urine < 1.0 /HPF (0.0-6.0)
[2020-11-27 18:19] LABS: Amphetamine Screen,Urine Negative; Benzodiazepines Screen,Urine Negative; Methadone Screen,Urine Negative; Opiate Screen,Urine Negative
[2020-11-27 18:31] LABS: Cannabinoid Screen,Urine Positive; Cocaine Screen,Urine Positive
[2020-11-27] MEDS: fentaNYL 100 MCG/2 ML INJ IV PRN ×2 (19:05→20:52)
[2020-11-27] MEDS ORDERED: NALOXONE 2 MG/2 ML INJ IV PRN (22:46)
--- NOTE | 2020-11-27 22:47 | Anesthesia Consultation ---
Anesthesia Consult and Med Hx Date of service: 11/27/20 - Airway Anesthetic Teeth Evaluation: Good ROM Head & Neck: Adequate Mental/Hyoid Distance: Adequate Mallampati Class: Class II Intubation Access Assessment: Probably Good - Pulmonary Exam CTA: Yes - Cardiac Exam Cardiac Exam: RRR - Pre-Operative Health Status ASA Pre-Surgery Classification: ASA3 Proposed Anesthetic Plan: Epidural - Pulmonary Hx Asthma: No COPD: No Hx Pneumonia: No - Cardiovascular System Hx Hypertension: Yes (CHRONIC) - Central Nervous System Hx Seizures: No Hx Psychiatric Problems: No - Endocrine Hx Renal Disease: No Hx End Stage Renal Disease: No Hx Hypothyroidism: No Hx Hyperthyroidism: No - Hematic Hx Anemia: No Hx Sickle Cell Disease: No - Other Systems Hx Alcohol Use: Yes (PT STATES SHE HAD A DRINK YESTERDAY) Hx Substance Use: Yes
[2020-11-27] MEDS ORDERED: fentaNYL-BUPIV 2 MCG/ML-0.125% 200 MCG/100 ML BAG EPIDURAL SCH (23:00)
--- NOTE | 2020-11-27 23:08 | Progress Note ---
Labor Epidural - Labor Epidural Start Time: 22:58 Stop Time: 23:00 Performed by:: PETERSON MATHEW Procedure: Patient is requesting epidural for labor pain. H&P, and labs reviewed. Procedure explained, questions answered, consent obtained. Patient in sitting position with blood pressure cuff and pulse ox on and working. Timeout performed immediately before start of procedure. Sterile chlorahexadine 0.5% prep/drape. 3 mL 1% lidocaine skin wheal at L[3]-L[4]. 18-gauge in[employer]ius Engineeringtead epidural needle advanced to [id number] with saline at [7] cm. 27-gauge spinal needle advanced until clear, free-flowing CSF. Intrathecal dexmedetomidine [5] mcg administered and needle removed. Epidural catheter advanced to [12] cm, negative aspiration for blood and csf, negative test dose 3 ml 1.5% lidocaine with epinephrine. Sterile steri-strips and tegaderm applied, followed by tape reinforcement. Patient tolerated procedure well.
--- NOTE | 2020-11-27 23:44 | History and Physical Report ---
History of Present Illness Date of examination: 11/27/20 Date of admission: 11/27/20 11:15 Chief complaint: induction for chronic hypertension History of present illness: Pt is a 35 year old -Italian female ELIZABETH 12/18/20 at 37w0d who presents for induction of labor secondary to chronic hypertension on labetalol 100mg BID. She has had 3 visits (17 wks, 31 wks, 36wks) complicated by limited care, large uterine fibroids (largest 11 cm), advanced maternal age, iron deficiency anemia, h/o depression on Zoloft, father of baby HIV positive, and refused 1 hour glucose tolerance test for gestational diabetes testing. Her GBS status is unknown. 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 Family/Genetic History: hypertension Social history: IV drug use (illicit drug use ) - Obstetrical History Expected Date of Delivery: 12/18/20 Actual Gestation: 37 Week(s) 1 Day(s) : 5 Para: 2 Hx # Term Pregnancies: 2 Number of Pregnancies: 0 Spontaneous Abortions: 2 Induced : 0 Number of Living Children: 2 Medications and Allergies Allergies Allergy/AdvReac Type Severity Reaction Status Date / Time No Known Allergies Allergy Verified 08/27/18 23:32 Home Medications Medication Instructions Recorded Confirmed Last Taken Type Methyldopa [Aldomet] 250 mg PO BID 08/28/18 08/14/20 11/10/18 10:00 History 250 Vit-Fe Fumar-FA [ 1 each PO QDAY #30 tablet 12/03/18 08/14/20 08/12/20 12:00 Rx Vitamin] NIFEdipine XL [Procardia Xl] 30 mg PO QDAY #30 tablet 12/09/18 08/14/20 Unknown Rx labetaloL [Labetalol 100mg TAB] 300 mg PO BID #60 tablet 12/09/18 08/14/20 Unknown Rx oxyCODONE /ACETAMINOPHEN [Percocet 1 tab PO Q6H PRN #14 tablet 12/09/18 08/14/20 Unknown Rx 5/325 mg] Metoclopramide [Reglan] 10 mg PO TID PRN #14 tab 06/29/20 08/14/20 Unknown Rx Famotidine [Pepcid] 20 mg PO BID #60 tablet 09/04/20 Unknown Rx Ondansetron HCl [Zofran] 4 mg PO Q8H PRN #20 tablet 09/04/20 Unknown Rx Active Meds: Active Medications Butorphanol Tartrate (Butorphanol 2 Mg/1 Ml Inj) 1 mg IV Q2H PRN PRN Reason: Pain, Moderate(4-6) LABOR PAIN Butorphanol Tartrate (Butorphanol 2 Mg/1 Ml Inj) 2 mg IV Q2H PRN PRN Reason: Pain , Severe (7-10) Last Admin: 11/27/20 22:21 Dose: 2 mg Documented by: Carboprost Tromethamine (Carboprost Tromethamine 250 Mcg/1 Ml Inj) 250 mcg IM ONCE PRN PRN Reason: Uterine Bleeding Dinoprostone (Dinoprostone 10 Mg Vag Supp) 10 mg VG ONCE TEETEE Stop: 11/28/20 13:29 Last Admin: 11/27/20 16:12 Dose: 10 mg Documented by: Ephedrine Sulfate (Ephedrine Sulfate 50 Mg/1 Ml Inj) 10 mg IV Q2M PRN PRN Reason: Hypotension Fentanyl (Fentanyl 100 Mcg/2 Ml Inj) 100 mcg IV Q2H PRN PRN Reason: Pain,Severe (7-10) LABOR PAIN Last Admin: 11/27/20 20:52 Dose: 100 mcg Documented by: Oxytocin/Sodium Chloride (Pitocin/Ns 30 Unit/500ml) 30 units in 500 mls @ 2 mls/hr IV TITR TEETEE; Protocol Lactated Ringer's (Lactated Ringers) 1,000 mls @ 125 mls/hr IV DIRECT TEETEE Last Admin: 11/27/20 16:10 Dose: 125 mls/hr Documented by: Oxytocin/Sodium Chloride (Pitocin/Ns 30 Unit/500ml) 30 units in 500 mls @ 40 mls/hr IV TITR TEETEE; Protocol Ampicillin Sodium (Ampicillin/Ns 1 Gm/50 Ml) 1 gm in 50 mls @ 100 mls/hr IV Q4H TEETEE; Protocol Last Admin: 11/27/20 20:13 Dose: 100 mls/hr Documented by: Fentanyl/Bupivacaine/Sodium Chlor (Fentanyl-Bupiv 2 Mcg/Ml-0.125%) 200 mcg in 100 mls @ 12 mls/hr EPIDURAL TITR TEETEE; Protocol Last Admin: 11/27/20 23:28 Dose: 12 mls/hr Documented by: Loperamide HCl (Loperamide 2 Mg Cap) 2 mg PO ONCE PRN PRN Reason: give with Hemabate Mineral Oil (Mineral Oil 30 Ml Oral Liqd) 30 ml PO QHS PRN PRN Reason: Constipation Misoprostol (Misoprostol 200 Mcg Tab) 800 mcg IA ONCE PRN PRN Reason: Uterine Bleeding Naloxone HCl (Naloxone 2 Mg/2 Ml Inj) 0.2 mg IV Q5M PRN PRN Reason: Respiratory sedation Ondansetron HCl (Ondansetron 4 Mg/2 Ml Inj) 4 mg IV Q8H PRN PRN Reason: Nausea And Vomiting Last Admin: 11/27/20 22:26 Dose: 4 mg Documented by: Oxytocin (Oxytocin 10 Unit/1 Ml Inj) 10 unit IM ONCE PRN PRN Reason: Uterine Bleeding Terbutaline Sulfate (Terbutaline 1 Mg/1 Ml Inj) 0.25 mg SUB-Q ONCE PRN PRN Reason: Hyperstimulation/Hypertonicity Review of Systems All systems: negative - Vital Signs Vital signs: Vital Signs Pulse BP 80 146/85 11/27/20 12:18 11/27/20 12:18 Temp Pulse Resp BP Pulse Ox 98.4 F 78 18 127/61 100 11/27/20 20:47 11/27/20 23:38 11/27/20 20:05 11/27/20 23:15 11/27/20 23:38 - Physical Exam Breasts: Positive: deferred Abdomen: Positive: soft (gravid, large fibroids palpable ) Uterus: Positive: enlarged (fibroids, enlarged ) Extremities: Positive: normal - Obstetrical FHR: auscultation normal Uterine Contraction Monitor Mode: External Cervical Dilatation: 0.5 Uterine Contraction Pattern: Irregular Uterine Tone Measurement Phase: Resting Results Result Diagrams: 11/27/20 14:55 11/27/20 14:55 Abnormal lab results 11/27/20 11/27/20 11/27/20 Range/Units 14:55 14:55 15:00 RBC 3.40 L (3.65-5.03) M/mm3 Hgb 7.9 L (10.1-14.3) gm/dl Hct 25.0 L (30.3-42.9) % MCV 74 L (79-97) fl MCH 23 L (28-32) pg RDW 20.6 H (13.2-15.2) % Creatinine 0.4 L (0.6-1.2) mg/dL Uric Acid 3.2 L (3.5-7.6) mg/dL Lactate Dehydrogenase 226 H (91-180) units/L Crossmatch See Detail All other labs normal. Assessment and Plan A: IUP at 37w0d Chronic Hypertension on Labetalol 100 mg BID Fibroid Uterus, largest 11 cm Limited Care Advanced maternal age Iron deficiency anemia H/o depression on Zoloft Father of baby HIV positive GBS status is unknown H/o illicit drug use P: Admit to labor and delivery PIH panel, HIV Type and Cross 2 units PRBCs Cervidil for cervical ripening Urine drug screen Continue to monitor maternal and status
[2020-11-28] MEDS ORDERED: LIDOCAINE (2%) 20 MG/1 ML VIAL 20 ML MDV INFILTRATI ONE (00:08)
--- NOTE | 2020-11-28 00:24 | Procedure Note ---
OB Delivery Note - Delivery Date of Delivery: 11/27/20 Surgeon: CHAYO DESIR Estimated blood loss: 500cc - Vaginal Delivery presentation: vertex Delivery position: OA Intrapartum events: PROM->1hr before delivery, decreased FHT variability, uterine atony (Misoprostol 800 mcg placed per rectum, 10 units pitocin IM due to infiltrated IV), other(please specify) (multiple uterine fibroids, largest 11 cm ) Delivery induction: cervidil Delivery monitor: external FHT, external uterine Route of delivery: Delivery placenta: spontaneous Episiotomy: none Delivery laceration: 2nd degree Delivery repair: vicryl Anesthesia: local, epidural - A at 1 minute: 8 at 5 minutes: 9 Infant Gender: Female (3053g (6lb 12oz) @# 2348 pm)
[2020-11-28] MEDS ORDERED: diphenhydrAMINE 25 MG CAP PO PRN (02:59)
[2020-11-28] MEDS ORDERED: OXYTOCIN DRIP 30 UNITS/500 ML BAG IV SCH (02:59)
[2020-11-28] MEDS ORDERED: PROMETHAZINE 25 MG TAB PO PRN (02:59)
[2020-11-28] MEDS ORDERED: WITCH HAZEL/ GLYCERIN PAD TP PRN (02:59)
[2020-11-28] MEDS ORDERED: PROMETHAZINE 25 MG RECT SUPP PR PRN (02:59)
[2020-11-28] MEDS ORDERED: BENZOCAINE/MENTHOL 20/0.5% TOP SPRAY 56 GM TP PRN (02:59)
[2020-11-28] MEDS ORDERED: LANOLIN/ZINC/DIMETHICONE (LANSINOH) 7 GM TP PRN ×2 (02:59)
[2020-11-28] MEDS ORDERED: MAGNESIUM HYDROXIDE (MOM) ORAL LIQD UDC PO PRN (02:59)
[2020-11-28] MEDS ORDERED: ONDANSETRON 4 MG/2 ML INJ IV PRN (02:59)
[2020-11-28] MEDS: IBUPROFEN 600 MG TAB PO SCH ×3 (03:11→18:40)
[2020-11-28] MEDS: HYDROcodone/ACETAMINOPHEN 5-325 MG TAB PO PRN ×3 (06:40→18:37)
[2020-11-28] MEDS: FERROUS SULFATE 325 MG TAB PO SCH ×2 (09:18→22:50)
[2020-11-28 12:51] LABS: Hematocrit 25.1 % (30.3-42.9); Hemoglobin 7.9 gm/dl (10.1-14.3)
--- NOTE | 2020-11-28 20:44 | Post Anesthesia Evaluation ---
- Post Anesthesia Evaluation Patient Participated: Yes Airway Patent: Yes Stable Respiratory Function: Yes Nausea/Vomiting: No Temp > 96.8F: Yes Pain Manageable: Yes Adequeate Hydration: Yes Anesthesia Complications: No Block Receding Appropriately: Yes
[2020-11-29] MEDS: HYDROcodone/ACETAMINOPHEN 5-325 MG TAB PO PRN ×3 (00:57→19:58)
[2020-11-29] MEDS ORDERED: MEASLES, MUMPS & RUBELLA 12,500 UNIT/0.5 ML VACCINE SUB-Q ONE (06:00)
[2020-11-29] MEDS ORDERED: TETANUS,DIPH,PERTUSS(ACELL) VACCINE 0.5 ML SYRINGE IM ONE (06:00)
[2020-11-29] MEDS: IBUPROFEN 600 MG TAB PO SCH ×4 (06:00→18:11)
--- NOTE | 2020-11-29 08:20 | Progress Note ---
Assessment and Plan - Patient Problems (1) Status post normal vaginal delivery Current Visit: Yes Status: Acute Plan to address problem: Continue routine PP orders Keep laceration site clean and dry Anticipate d/c home tomorrow (2) Chronic hypertension affecting Current Visit: No Status: Acute Plan to address problem: Continue to monitor B/Ps Continue Labetalol as ordered (3) Anemia Current Visit: Yes Status: Acute Qualifiers: Anemia type: iron deficiency Plan to address problem: Asymptomatic Increase iron rich foods into diet (4) Cocaine abuse complicating Current Visit: Yes Status: Acute Plan to address problem: Case management consultation Subjective - Subjective Date of service: 11/29/20 Principal diagnosis: S/P ; PPD#1 Interval history: Pt is a 35 year old -[place] female ELIZABETH 12/18/20 at 37w0d who presents for induction of labor secondary to chronic hypertension on labetalol 100mg BID. She has had 3 visits (17 wks, 31 wks, 36wks) complicated by limited c are, large uterine fibroids (largest 11 cm), advanced maternal age, iron deficiency anemia, h/o depression on Zoloft, father of baby HIV positive, and refused 1 hour glucose tolerance test for gestational diabetes testing. Her GBS status is unknown. Patient reports: appetite normal, voiding normally, pain well controlled, flatus, ambulating normally : doing well, bottle feeding Objective - Vital Signs Latest vital signs: Vital Signs Temp Pulse Resp BP BP Pulse Ox 11/29/20 03:00 98.5 F 68 18 144/78 100 11/29/20 00:57 18 11/28/20 22:50 98.6 F 56 L 18 143/80 143/80 100 11/28/20 16:11 98.0 F 61 18 128/69 100 11/28/20 12:21 97.8 F 63 20 160/85 100 11/28/20 09:18 141/70 11/28/20 08:22 98.2 F 60 20 141/71 99 Intake and Output 11/28/20 11/29/20 11/29/20 23:59 07:59 15:59 Intake Total 600 480 Balance 600 480 Intake: Oral 240 240 Intake, Free Water 360 240 Other: Total, Intake Amount 240 240 # Voids Void 1 2 - Exam Breasts: Present: normal Cardiovascular: Present: Regular rate Lungs: Present: Normal air movement Abdomen: Present: soft Uterus: Present: firm, fundal height below umbilicus (U-2, bladder full) Extremities: Present: normal Incision: Present: other (second degree laceration, healing as expected) - Labs Labs: Abnormal lab results 11/28/20 Range/Units 12:27 Hgb 7.9 L (10.1-14.3) gm/dl Hct 25.1 L (30.3-42.9) %
[2020-11-29] MEDS: NIFEdipine XL 30 MG TAB PO SCH (09:01)
[2020-11-29] MEDS: FERROUS SULFATE 325 MG TAB PO SCH ×2 (09:01→21:32)
[2020-11-30] MEDS: IBUPROFEN 600 MG TAB PO SCH ×2 (05:30→14:02)
--- NOTE | 2020-11-30 07:55 | Discharge Summary ---
Providers - Providers Date of Admission: 11/27/20 11:15 Date of discharge: 11/30/20 Attending physician: CHAYO DESIR 11/28/20 02:59 Consult to Restaurant Attendant [CONS] Routine Reason For Exam: assistance with , SNS 11/28/20 07:31 Consult to Case Management [CONS] Routine Services Needed at Discharge: Broiler Chef Or Cook Notified:: yes Phone number called:: [phone] Was contact made?: Yes Comment:: order completed 11/28/20 11/29/20 11:38 Consult to Mental Health [CONS] Routine Reason For Exam: [email or web address] 20 Primary care physician: CHANTELLE BRICENO MD Hospitalization Reason for admission: induction of labor Delivery: Episiotomy: none Laceration: 2nd degree (healing as expected) Other procedures: none complications: none Discharge diagnosis: IUP at term delivered baby: female Hospital course: Pt is a 35 year old -[place] female ELIZABETH 12/18/20 at 37w0d who presents for induction of labor secondary to chronic hypertension on labetalol 100mg BID. She has had 3 visits (17 wks, 31 wks, 36wks) complicated by limited care, large uterine fibroids (largest 11 cm), advanced maternal age, iron deficiency anemia, h/o depression on Zoloft, father of baby HIV positive, and refused 1 hour glucose tolerance test for gestational diabetes testing. Her GBS status is unknown. Tested positive for cocaine use. Condition at discharge: Stable Disposition: DC-01 TO HOME OR SELFCARE - Discharge Diagnoses (1) Status post normal vaginal delivery Status: Acute (2) Chronic hypertension affecting Status: Acute (3) Anemia Status: Acute Qualifiers: Anemia type: iron deficiency (4) Cocaine abuse complicating Status: Acute Plan - Discharge Medications Prescriptions: Ferrous Sulfate [Feosol 325 MG tab] 325 mg PO BID 30 Days #60 tablet labetaloL [Labetalol 200mg TAB] 200 mg PO BID 14 Days #28 tablet Ibuprofen [Motrin 600 MG tab] 600 mg PO Q8H 7 Days #21 tablet NIFEdipine XL [Procardia Xl] 30 mg PO QDAY 14 Days #14 tablet - Provider Discharge Summary Activity: routine, no sex for 6 weeks, no heavy lifting 4 weeks, no strenuous exercise Diet: other (Iron rich diet) Instructions: routine Additional instructions: [] Smoking cessation referral if applicable(refer to patient education folder for contact #) [] Refer to [facility]'s [facility] Booklet Call your doctor immediately for: * Fever > 100.5 * Heavy vaginal bleeding ( >1 pad per hour) * Severe persistent headache * Shortness of breath * Reddened, hot, painful area to leg or breast * Drainage or odor from incision. * Keep laceration site clean and dry at all times and follow doctor's instructions regarding bathing/showering * Follow up at office in 7 days for B/P check - Follow up plan Follow up: CHANTELLE BRICENO MD [Primary Care Provider] - 7 Days
[2020-11-30] MEDS: FERROUS SULFATE 325 MG TAB PO SCH (09:16)
[2020-11-30] MEDS: HYDROcodone/ACETAMINOPHEN 5-325 MG TAB PO PRN (09:17)
[2020-11-30] MEDS: NIFEdipine XL 30 MG TAB PO SCH (09:17)
--- NOTE | 2020-11-30 13:33 | Consultation ---
History of Present Illness - Reason for Consult Consult date: 11/30/20 Reason for consult: Depression - Chief Complaint Chief complaint: induction for chronic hypertension - History of Present Psychiatric Illness Per Note:Pt is a 35 year old -[place] female ELIZABETH [birth year] at 37w0d who presents for induction of labor secondary to chronic hypertension on labetalol 100mg BID. She has had 3 visits (17 wks, 31 wks, 36wks) complicated by limited care, large uterine fibroids (largest 11 cm), advanced maternal age, iron deficiency anemia, h/o depression on Zoloft, father of baby HIV positive, and refused 1 hour glucose tolerance test for gestational diabetes testing. Her GBS status is unknown. The patient is a 35 year old female with history of depression who was recently admitted for delivery. In my interview with patient, she was very angry and talkative. Patient reports use of Cocaine during leading to a [employer] case. Patient said that she was told that she would have to go home without her baby until [employer] completes her house assessment.Patient reports she has three other children and she also had [employer] case with her last child. Patient endorses depression stating she was prescribed some psychotropic medications that she never took. Patient denies any current suicidal/homicidal ideation and denies hallucinations. PAST PSYCHIATRIC HISTORY: Diagnoses: Depression Suicide attempts or Self-harm behavior: denies Prior psychiatric hospitalizations: Denies Substance Abuse history: Cocaine, Marijuana Previous psychiatric medications tried: None Outpatient treatment: Denied PAST MEDICAL HISTORY: n/a Family Psychiatric History: None reported or documented SOCIAL HISTORY Marital Status: single Living Arrangements: alone with children Employment Status: unemployed Access to guns/weapons: n/a Education: 10th grade History of Abuse: n/a Legal History: n/a REVIEW OF SYSTEMS Constitutional: Negative for weight loss ENT: Negative for stridor Respiratory: Negative for cough or hemoptysis All other systems reviewed and are negative MENTAL STATUS EXAMINATION General Appearance and Behavior: Age appropriate, good hygiene, wearing a ppropriate clothes, uncooperative polite with questioning. Cooperation: cooperative Psychomotor Behavior: Psychomotor agitation Mood: Angry Affect and affective range: congruent to stated mood Thought Process: Goal directed Thought Content: Denied suicidal ideation Speech: Normal volume, Regular rate and rhythm Intellectual Functioning: Average Suicidal Ideation: Denied Homicidal Ideation: Denied hallucination: Denies Impulse Control: impulsive Insight and Judgment: limited Memory: Intact Attention:Distractible Orientation: Alert and oriented Diagnoses: (1)Major Depressive Depression, Recurrent, Moderate-F33.1 Current Visit: Yes Status: Acute RECOMMENDATIONS Start Prozac 20mg po daily Risks, benefits and alternatives of medications discussed with the patient, questions answered and consent obtained from patient. PSYCHOTHERAPY: Supportive psychotherapy provided MEDICAL: Per primary team DELIRIUM PRECAUTIONS: Please re-orient patient frequently, keep lights on during the day, and minimize benzodiazepines and opiates as these medications could worsen patient's confusion. BONE CRUSHER: Per medical team DISPOSITION: Do not recommend acute inpatient psychiatric hospitalization at this time FOLLOW-UP: Will sign off Patient to follow-up with psychiatric outpatient post discharge. Thank you for the consult. Please contact with any questions and/or concerns. Medications and Allergies Allergies Allergy/AdvReac Type Severity Reaction Status Date / Time No Known Allergies Allergy Verified 11/28/20 07:37 Home Medications Medication Instructions Recorded Confirmed Last Taken Type Methyldopa [Aldomet] 250 mg PO BID 08/28/18 11/28/20 11/10/18 10:00 History 250 Vit-Fe Fumar-FA [ 1 each PO QDAY #30 tablet 12/03/18 11/28/20 08/12/20 12:00 Rx Vitamin] NIFEdipine XL [Procardia Xl] 30 mg PO QDAY #30 tablet 12/09/18 11/28/20 Unknown Rx labetaloL [Labetalol 100mg TAB] 300 mg PO BID #60 tablet 12/09/18 11/28/20 Unknown Rx oxyCODONE /ACETAMINOPHEN [Percocet 1 tab PO Q6H PRN #14 tablet 12/09/18 11/28/20 Unknown Rx 5/325 mg] Metoclopramide [Reglan] 10 mg PO TID PRN #14 tab 06/29/20 11/28/20 Unknown Rx Famotidine [Pepcid] 20 mg PO BID #60 tablet 09/04/20 11/28/20 Unknown Rx Ondansetron HCl [Zofran] 4 mg PO Q8H PRN #20 tablet 09/04/20 11/28/20 Unknown Rx FLUoxetine [PROzac] 20 mg PO QDAY 30 Days #30 capsule 11/30/20 Unknown Rx Ferrous Sulfate [Feosol 325 MG tab] 325 mg PO BID 30 Days #60 tablet 11/30/20 Unknown Rx Ibuprofen [Motrin 600 MG tab] 600 mg PO Q8H 7 Days #21 tablet 11/30/20 Unknown Rx NIFEdipine XL [Procardia Xl] 30 mg PO QDAY 14 Days #14 tablet 11/30/20 Unknown Rx labetaloL [Labetalol 200mg TAB] 200 mg PO BID 14 Days #28 tablet 11/30/20 Unknown Rx Active Meds: Active Medications Hydrocodone Bitart/Acetaminophen (Hydrocodone/Acetaminophen 5-325 Mg Tab) 2 each PO Q6H PRN PRN Reason: Pain, Moderate (4-6) Last Admin: 11/30/20 09:17 Dose: 2 each Documented by: Benzocaine/Menthol (Benzocaine/Menthol 20/0.5% [place] 56 Gm) 1 spray TP PRN PRN PRN Reason: Episiotomy Pain Last Admin: 11/28/20 06:08 Dose: 1 spray Documented by: Bisacodyl (Bisacodyl 10 Mg Rect Supp) 10 mg OR BID PRN PRN Reason: Constipation Carboprost Tromethamine (Carboprost Tromethamine 250 Mcg/1 Ml Inj) 250 mcg IM ONCE PRN PRN Reason: Uterine Bleeding Diphenhydramine HCl (Diphenhydramine 25 Mg Cap) 25 mg PO Q6H PRN PRN Reason: Itching Ferrous Sulfate (Ferrous Sulfate 325 Mg Tab) 325 mg PO BID [facility] Last Admin: 11/30/20 09:16 Dose: 325 mg Documented by: Oxytocin/Sodium Chloride (Pitocin/Ns 30 Unit/500ml) 30 units in 500 mls @ 40 mls/hr IV TITR [facility]; Protocol Ibuprofen (Ibuprofen 600 Mg Tab) 600 mg PO Q6HR [facility] Last Admin: 11/30/20 05:30 Dose: 600 mg Documented by: Labetalol HCl (Labetalol 200 Mg Tab) 200 mg PO BID [facility] Last Admin: 11/30/20 09:18 Dose: 200 mg Documented by: Loperamide HCl (Loperamide 2 Mg Cap) 2 mg PO ONCE PRN PRN Reason: give with Hemabate Magnesium Hydroxide (Magnesium Hydroxide (Mom) Oral Liqd Udc) 30 ml PO HS PRN PRN Reason: Constipation Multi-Ingredient Ointment (Lanolin/Zinc/Dimethicone (Lansinoh) 7 Gm) 1 applic TP PRN PRN PRN Reason: Sore Nipples Naloxone HCl (Naloxone 2 Mg/2 Ml Inj) 0.2 mg IV Q5M PRN PRN Reason: Respiratory sedation Nifedipine (Nifedipine Xl 30 Mg Tab) 30 mg PO QDAY [place] Last Admin: 11/30/20 09:17 Dose: 30 mg Documented by: Ondansetron HCl (Ondansetron 4 Mg/2 Ml Inj) 4 mg IV Q8H PRN PRN Reason: Nausea And Vomiting Last Admin: 11/27/20 22:26 Dose: 4 mg Documented by: Promethazine HCl (Promethazine 25 Mg Rect Supp) 25 mg OR Q6H PRN PRN Reason: Nausea And Vomiting Promethazine HCl (Promethazine 25 Mg Tab) 25 mg PO Q6H PRN PRN Reason: Nausea And Vomiting Witch Elen/Glycerin (Witch Elen/ Glycerin Pad) 1 each TP PRN PRN PRN Reason: Hemorrhoid/cleansing/soothing Last Admin: 11/28/20 04:53 Dose: 1 each Documented by: Mental Status Exam - Vital signs Last Vital Signs Temp 97.8 F 11/30/20 11:47 Pulse 65 11/30/20 11:47 Resp 20 11/30/20 11:47 BP 150/91 11/30/20 11:47 Pulse Ox 100 11/30/20 11:47 Results Result Diagrams: 11/28/20 12:27 11/27/20 14:55 Abnormal lab results 11/27/20 Range/Units 15:00 Crossmatch See Detail All other labs normal.
[2020-11-30 17:18] VITALS: BP 136/92
== END 2020-11-30 17:00 | disposition home or self-care (01) | DRG 774 ==
LOC: LD 11:15 → OB 11-28 03:01
PROVIDERS: ADMIT Obstetrics & Gynecology; ATTEND Obstetrics & Gynecology
PROC: 10E0XZZ Delivery of Products of Conception, External Approach (ICD-10-PCS; principal; 2020-11-27)
PROC: 0KQM0ZZ Repair Perineum Muscle, Open Approach (ICD-10-PCS; 2020-11-27)
PROC: 3E0P7VZ Introduction of Hormone into Female Reproductive, Via Natural or Artificial Opening (ICD-10-PCS; 2020-11-27)
PROC: 3E0R3BZ Introduction of Anesthetic Agent into Spinal Canal, Percutaneous Approach (ICD-10-PCS; 2020-11-27)
PROC: 00HU33Z Insertion of Infusion Device into Spinal Canal, Percutaneous Approach (ICD-10-PCS; 2020-11-27)
PROC: 3E0234Z Introduction of Serum, Toxoid and Vaccine into Muscle, Percutaneous Approach (ICD-10-PCS; 2020-11-28)
PROC: 3E0134Z Introduction of Serum, Toxoid and Vaccine into Subcutaneous Tissue, Percutaneous Approach (ICD-10-PCS; 2020-11-28)
DX: O10.92 Unspecified pre-existing hypertension complicating childbirth (principal); O99.344 Other mental disorders complicating childbirth; F33.1 Major depressive disorder, recurrent, moderate; O34.13 Maternal care for benign tumor of corpus uteri, third trimester; D25.9 Leiomyoma of uterus, unspecified; O99.324 Drug use complicating childbirth; F14.10 Cocaine abuse, uncomplicated; O99.02 Anemia complicating childbirth; D50.8 Other iron deficiency anemias; O42.92 Full-term premature rupture of membranes, unspecified as to length of time between rupture and onset of labor; O62.2 Other uterine inertia; Z20.822 Contact with and (suspected) exposure to COVID-19; O70.1 Second degree perineal laceration during delivery; Z3A.37 37 weeks gestation of pregnancy; Z37.0 Single live birth; Z23 Encounter for immunization; Z82.49 Family history of ischemic heart disease and other diseases of the circulatory system; Z79.899 Other long term (current) drug therapy
CPT/HCPCS: 36415; 59200; 80307; 81001; 82565; 83615; 84450; 84460; 84550; 85014; 85018; 85027; 86592; 86850; 86900; 86901; 86920; 87806; 99211; G0378; G0463; J0290; J0595; J2405; J2590; J3010; J7120; U0003